=== PATIENT | female | born 1960 | race Caucasian/White ===

== ENCOUNTER 2017-11-20 15:59 | Inpatient (IN) | payer MEDICAID ==
[~2017-11-20] VITALS: Ht 154.9 cm; Wt 74.3 kg
[2017-11-20] MEDS ORDERED: hydrOXYzine (VISTARIL) 25 MG CAP PO PRN (17:00)
[2017-11-20] MEDS ORDERED: ONDANSETRON 4 MG (ZOFRAN) ORAL DISSOLVE TAB PO PRN (17:15)
[2017-11-20] MEDS: OMEGA 3 (FISH OIL) 1000 MG CAP PO SCH (17:29)
[2017-11-20] MEDS: HYDROcodone/APAP 10 MG/325 MG (LORTAB) TAB PO PRN ×2 (17:29→21:31)
[2017-11-20 18:00] VITALS: BP 148/66
[2017-11-20] MEDS: RT-ADVAIR HFA 115/21 MCG PER PUFF IH SCH (18:13)
[2017-11-20] MEDS: RT-ALBUTEROL/IPRATROPIUM 3 ML (DUONEB) VIAL INH SCH (18:13)
[2017-11-20] MEDS: inSUlin ASPART (NovoLOG) 1 UNIT/0.01 ML (CHARGE PER UNIT) SC SCH (18:19)
[2017-11-20] MEDS: LIPASE/AMYLASE/PROTEASE (PANCRELIPASE) 5,000 UNITS CAP PO SCH (18:21)
[2017-11-20] MEDS ORDERED: NICOTINE 21 MG (NICODERM) PATCH TD NR (19:00)
--- NOTE | 2017-11-20 20:18 | HISTORY AND PHYSICAL ---
DATE OF SERVICE: 11/20/2017 CHIEF COMPLAINT: Difficulty with walking. HISTORY OF PRESENT ILLNESS: The patient is a 57-year-old disabled female who was modified independent with a walker prior to [place] a [place]. She sustained a fracture of the left proximal femur. She was admitted to [facility] and had intramedullary nailing on 11/16/2017. The same day, she had a decline in her functional independence due to this and is now referred to inpatient rehabilitation unit. Currently, she requires assistance for ADLs and mobility skills.She is min assist for Traansfers and gait with a WW.She is max assist for lower body dressing and min assist for upper body dressing. PAST MEDICAL HISTORY: Bipolar disorder, disabled since the late for back pain and psych issues, diabetes mellitus, diabetic peripheral neuropathy.She reports that she has a Therapy dog for her anxiety PAST SURGICAL HISTORY: As per above. ALLERGIES: SULFA, DIAZEPAM, HYDROMORPHONE, METFORMIN, PENICILLIN. FAMILY HISTORY: Noncontributory. SOCIAL HISTORY: She presents to unit with her spouse. He is a retired tow truck dispatcher. They have one child who is from an overdose. They live in an apartment in [place], [place].She reports that she took Xanax in the past for panic attacks but [place] Medicaid will no longer cover that medication REVIEW OF SYSTEMS: A 10-point review of systems significant for history of anxiety, depression, peripheral neuropathy, falls, back pain. MEDICATIONS: Lofibra 134 mg p.o. at bedtime, Nicoderm patch, Vasotec 2.5 mg p.o. daily, Prozac 40 mg p.o. daily, Lasix 20 mg p.o. daily, Protonix 20 mg p.o. daily, ASA 81 mg p.o. b.i.d., Sinequan 10 mg p.o. at bedtime, Prozac 20 mg p.o. at bedtime, Lyrica 150 mg p.o. t.i.d., Lamictal 100 mg p.o. b.i.d., Zyprexa 20 mg p.o. at bedtime, Levemir insulin 65 units b.i.d., Advair 2 puffs b.i.d., DuoNeb treatments q.i.d., Zofran 1 mg p.o. q.6 hours p.r.n. nausea or emesis, fish oil 1000 mg p.o. b.i.d., Vistaril 25 mg p.o. t.i.d. p.r.n. anxiety or itching, Pancrease 2 tablets p.o. with meals, NovoLog insulin 20 units subcu with meals, hydrocodone/APAP 1 tablet p.o. q.4 hours p.r.n. moderate pain, 10 mg tabs. PHYSICAL EXAMINATION: GENERAL: Significant for a female appearing her stated age, alert and oriented, requesting that her therapy dog be allowed to come and visit. VITAL SIGNS: She is afebrile, pulse is 81, respirations 18, blood pressure 148/66, O2 sat 96% on 2 liters of O2, 91% on room air. HEENT: Vision, speech, hearing grossly intact. No oral lesion is noted. NECK: Supple without mass. HEART: Regular rate and rhythm. CHEST: Clear. ABDOMEN: Obese, soft, nontender. Bowel sounds present. EXTREMITIES: Trace edema of both ankles, no calf tenderness. MUSCULOSKELETAL: The patient has a good amount of strength in both upper limbs and right lower limb. Left lower limb limited hip due to recent fracture repair with guarding and pain, tenderness.RT Knee flex/extension 4-/5 hip flexion 4-/5 DF 4/5 Left knee flex extension 3/5 Hip Flex NT DF 4/5 NEUROLOGIC: Decreased sensation to touch in both feet. Cognition appears grossly intact. Strength as per above. IMPRESSION: 1. Ambulatory dysfunction secondary to fall with resulting left proximal femur fracture, status post intramedullary nailing, [facility] 11/16/2017. 2. Postop deep venous thrombosis prophylaxis, on aspirin b.i.d. 3. Insulin-dependent diabetes mellitus. 4. Anxiety/depression, on medications. 7. Tobaccoism, currently abstaining on patch. 5. Diabetic peripheral neuropathy. PLAN: The patient will have a comprehensive program of inpatient rehabilitation with goal of maximizing level of functional independence prior to discharge home with spouse. The patient will have PT, OT 90 minutes per day each discipline, 5 days a week for 14 days with the goal of returning home with spouse, modified independent to supervision for ADLs and mobility skills. Please see post-admission physician evaluation, which is separate document for details of plan of care. Speech therapy to do cognitive assessment and treat as indicated. Rehabilitation nursing assist with bowel, bladder, skin, wound care, medication administration, pain management and clinical social work therapist with discharge planning, community reentry. Referred the patient's spouse to nursing service regarding details and protocol for [place].Consult DR veliz to assist with medical management.Monitor accucheks and adjust meds as needed. ESTIMATED LENGTH OF STAY: 14 days. PROGNOSIS: Rehab prognosis appears good for above goals in mind. DIET: Carb consistent. CODE STATUS: Full code. Job ID: [id number] DocumentID: [id number] Dictated Date: 11/20/2017 19:21:47 Front Office Director Date: 11/20/2017 20:17:38 Dictated By: RYNE CARPENTER MD MTDD
[2017-11-20] MEDS ORDERED: CREON PO SCH (21:00)
[2017-11-20] MEDS ORDERED: OLANZapine 2.5 MG (ZyPREXA) TAB PO SCH ×2 (21:00)
[2017-11-20] MEDS: ASPIRIN E.C. 81 MG (ECOTRIN) TAB PO SCH (21:31)
[2017-11-20] MEDS: OLANZapine 5 MG (ZyPREXA) TAB PO SCH (21:31)
[2017-11-20] MEDS: PREGABALIN 75 MG (LYRICA) CAP PO SCH (21:31)
[2017-11-20] MEDS: FLUoxetine HCL 20 MG (PROzac) CAP PO SCH (21:31)
[2017-11-20] MEDS: DOXEPIN 10 MG (SINEquan) CAP PO SCH (21:32)
[2017-11-20] MEDS: inSUlin DETERMIR 1 UNIT/0.01 ML (LEVEMIR) CHARGE PER UNIT SQ SCH (21:32)
[2017-11-21] MEDS: HYDROcodone/APAP 10 MG/325 MG (LORTAB) TAB PO PRN ×4 (05:25→21:32)
[2017-11-21 05:38] VITALS: BP 165/75
[2017-11-21] MEDS: PANTOPRAZOLE 20 MG TABLET (PROTONIX) PO SCH (06:26)
[2017-11-21] MEDS: OMEGA 3 (FISH OIL) 1000 MG CAP PO SCH ×2 (06:26→16:49)
[2017-11-21] MEDS: LIPASE/AMYLASE/PROTEASE (PANCRELIPASE) 5,000 UNITS CAP PO SCH ×3 (06:26→16:49)
[2017-11-21] MEDS: inSUlin ASPART (NovoLOG) 1 UNIT/0.01 ML (CHARGE PER UNIT) SC SCH ×2 (06:27→11:31)
[2017-11-21] MEDS: RT-ALBUTEROL/IPRATROPIUM 3 ML (DUONEB) VIAL INH SCH ×4 (06:48→19:10)
[2017-11-21] MEDS: RT-ADVAIR HFA 115/21 MCG PER PUFF IH SCH ×2 (06:50→19:10)
--- NOTE | 2017-11-21 08:05 | PM&R Post Admission Assessment ---
Post Admission Physician Asses Date seen by provider: Nov 21, 2017 Time seen by provider: 07:45 Admisison Dx: (1) Fracture dislocation of left hip joint The preadmission screen agrees with the post admission assessment that the patient is a good candidate for inpatient rehabilitation. The patient will have a comprehensive program of inpatient rehabilitation with a goal of maximizing level of functional independence prior to discharge home with spouse and HHC. The patient will have PT/OT ninety minutes per day, each discipline, five days a week for 14 days for gait, strengthening, conditioning, balance, ADLs, any patient/family/caregiver training as necessary. Speech therapy to do cognitive assessment and treat as indicated. Rehabilitation nursing to assist with bowel, bladder, skin, wound care, medication administration, pain management. Validation Specialist to assist with discharge planning, community reentry. SCD's and ASA BID for DVT prophylaxis. She appears to be well motivated to participate in three hours of therapy a day. She should be able to tolerate three hours of therapy a day from a medical standpoint. She should benefit from the three hours of therapy a day. She has a reasonable discharge plan, reasonable discharge rehabilitation goals and a supportive family. She has various comorbidities that need to be closely monitored with medications and treatments adjusted on a daily basis as needed. These include: Bipolar Disorder DM Diabetic peripheral neuropathy Barriers to discharge for this patient who had been independent prior to this are for her to be modified independent to supervision for ADLs and mobility skills prior to discharge home with spouse and HHC, so as to lessen the burden of the caregivers. Risks for this patient include: 1. Fall 2. Fracture 3. DVT 4. Pulmonary embolism 5. Wound infection 6. Skin breakdown 7. Contractures 8. Poorly controlled pain 9. Urinary retention 10. UTI 11. Respiratory infection 12. Aspiration 13. poorly controlled DM Estimated Length of Stay: 14 days Prognosis: Rehab prognosis appears good for goal of discharge home with [family ] modified independent to supervision for ADLs and mobility skills. General: Alert, Oriented X3, Cooperative, No Acute Distress, Other (mildly anxious) HEENT: Atraumatic, PERRLA, EOMI, Mucous Memb Moist/[place] Neck: Supple, No JVD Lungs: Clear to Auscultation Heart: Regular Rate Abdomen: Normal Bowel Sounds, Soft, No Tenderness Extremities: Other (Trace edeam left ankle) Neuro: Other (Weakness left hip due to injury and guarding Intermittent tremors Decreased sensation to light touch in feet otherwise generalized weakness Anxiety) RYNE CARPENTER MD Nov 21, 2017 08:05
--- NOTE | 2017-11-21 08:53 | Physical Therapy Evaluation ---
PT Evaluation-General Medical Diagnosis Admission Date Nov 20, 2017 at 16:06 Medical Diagnosis: left femur fracture Onset Date: Nov 16, 2017 Therapy Diagnosis Therapy Diagnosis: generalized weakness/debility Height/Weight Height (Feet): 5 Height (Inches): 1.00 Weight (Pounds): 160 Weight (Ounces): 0.0 Precautions Precautions/Isolations: Fall Prevention, Standard Precautions Weight Bear Status Right Lower Extremity: Right Full Weight Bearing Left Lower Extremity: Left Full Weight Bearing Referral Physician: Joseph Reason for Referral: Evaluation/Treatment Medical History Pertinent Medical History: Arthritis, CAD, DM, HTN, Neuropathy Current History Fall at [facility] resulting in left proximal femur fracture with repair. Transferred from [facility] for continued care. Reviewed History: Yes Social History Home: Apartment Current Living Status: Spouse Entry Into Home: Level Entry Prior/Core FIM Prior Level of Function Functional [place] Measure 0=Not Assessed/NA 4=Minimal Assistance 1=Total Assistance 5=Supervision or Setup 2=Maximal Assistance 6=Modified [place] 3=Moderate Assistance 7=Complete [place] Bed Mobility: 6 Transfers (B,C,W/C) (FIM): 6 Gait: 6 uses FWW PLOF PT Evaluation-Current Subjective Patient agrees to PT. Pain Numeric Pain Scale: 7 Location: Left Location Body Site: Hip Pain Description: Acute Objective Patient Orientation: Normal For Age Problem Solving: Fair Attachments: Oxygen ROM/Strength ROM Lower Extremities bilateral LE WFL Strenght Lower Extremities right knee flexion/extension 4-/5; hip flexion 4-/5; DF/PF 4/5 left knee flexion/extension 3/5; hip flexion NT; DF/PF 4/5 Integumentary/Posture Integumentary refer to nursing notes Bowel Incontinence: No Bladder Incontinence: No Posture WFL Neuromuscular (Tone, Coordination, Reflexes) noted bilateral UE tremors Sensory Vision: Functional Hearing: Functional Sensation Right Lower Extremit: Impaired Sensation Left Lower Extremity: Impaired Transfers Functional [place] Measure 0=Not Assessed/NA 4=Minimal Assistance 1=Total Assistance 5=Supervision or Setup 2=Maximal Assistance 6=Modified [place] 3=Moderate Assistance 7=Complete IndependenceIRFPAI Quality Coding Scale 6 Independent with activity with or without an assistive device 5 Patient requires set up or clean up by helper. Patient completes activity by themselves 4 Supervision or touching assist (CGA). [place] provide cues , steadying assist 3 The helper provides less than half the effort to complete the activity 2 The helper provides more than half the effort to complete the activity 1 Dependent. The helper does all the effort to complete an activity 7 Patient refused to complete or attempt activity 9 The patient did not perform the activity before the current illness or injury 88 Not attempted due to Medical conditions or safety concerns Transfers (B, C, W/C) (FIM): 4 Scootin Rollin Roll Left to Right (QC): 5 Supine to/from Sit: 5 Sit to/from Stand: 4 Sit to Lying (QC): 4 Lying to Sitting/Side of Bed(Q: 5 Sit to Stand (QC): 4 Chair/Nzf-ph-Pscej Xfer(QC): 4 Car Transfer (QC): 5 CGA for safety Gait Does the Patient Walk?: Yes Mode of Locomotion: Walk Anticipated Mode of Locomotion: Walk Gait (FIM): 4 Distance (FIM): 3=150 ft Walk 10 feet (QC): 4 Walk 50 ft with 2 Turns(QC): 4 Walk 150 ft (QC): 4 Walking 10ft/uneven surface-QC: 4 Distance: 150' x 5 Gait Level of Assist: 4 Gait Persons Needed: 1 Gait Assistive Device: FWW Comments/Gait Description very slow and antalgic Wheelchair Training Does the Pt Use a Wheelchair?: No Stairs Stairs (FIM): 2 #of Steps: 2 Level of Assist: 4 1 Step (curb) (QC): 4 4 Steps (QC): 9 Assistive Device: Walker 12 Steps (QC): 9 Balance Sitting Static: Normal Sitting Dynamic: Normal Standing Static: Fair Standing Dynamic: Fair Treatment bilateral LE exercises in sit 15 reps x 3 sets LAQ, AP, hip flexion AAROM left LE Assessment/Needs 57 y.o. female, will benefit from skilled PT to address functional strength and mobility to improve current LOF and to safely return to home with spouse at maximum LOF. Rehab Potential: Fair Post Rehab Potential-Barriers: compliance PT Event Services Manager Goals Snf Goals PT Event Services Manager Goals Time Frame: Dec 01, 2017 Transfers (B,C,W/C) (FIM): 6 Sit to Lying (QC): 6 Lying-Sitting on Side/Bed(QC): 6 Sit to Stand (QC): 6 Rollin Roll Left to Right (QC): 6 Chair/Fby-of-Ugqsi Xfer(QC): 6 Car Transfer (QC): 6 Does the Patient Walk: Yes Gait (FIM): 6 Gait distance (FIM): 3=150 ft Distance: 200' Walk 10 feet (QC): 6 Walk 10ft-Uneven Surface(QC): 6 Walk 50ft with 2 Turns (QC): 6 Walk 150 ft (QC): 6 Gait Level of Assist: 6 Gait Assistive Device: FWW Stairs (FIM): 2 # of Steps: 4 1 Step (curb) (QC): 5 4 Steps (QC): 5 12 Steps (QC): 9 Stairs Level Of Assist: 5 Picking up an Object (QC): 5 PT Plan Problem List Problem List: Activity Tolerance, Functional Strength, Safety, Balance, Gait, Bed Mobility Treatment/Plan Treatment Plan: Continue Plan of Care Treatment Plan: Bed Mobility, Education, Functional Activity Deborah, Functional Strength, Group Therapy, Gait, Safety, Therapeutic Exercise, Transfers Treatment Duration: Dec 01, 2017 Frequency: At least 5 of 7 days/Wk (IRF) Estimated Hrs Per Day: 1.5 hours per day Patient and/or Family Agrees t: Yes Discharge Recommendations Therapy D/C Recommendations: Home w/ Family Support Time/GCodes Time In: 745 Time Out: 850 Total Billed Treatment Time: 65 Total Billed Treatment 1 visit EVHighC 35 min EX 15 min FA 15 min G Codes Necessary: ROSHAN Dang PT Nov 21, 2017 08:53
[2017-11-21] MEDS: PREGABALIN 75 MG (LYRICA) CAP PO SCH ×3 (08:57→20:58)
[2017-11-21] MEDS: FUROSEMIDE 20 MG (LASIX) TAB PO SCH (08:57)
[2017-11-21] MEDS: ASPIRIN E.C. 81 MG (ECOTRIN) TAB PO SCH ×2 (08:57→20:58)
[2017-11-21] MEDS: ENALAPRIL 2.5 MG (VASOTEC) TAB PO SCH (08:57)
[2017-11-21] MEDS: FLUoxetine HCL 20 MG (PROzac) CAP PO SCH ×2 (08:57→20:59)
[2017-11-21] MEDS ORDERED: FENOFIBRATE 160 MG PO SCH (09:00)
[2017-11-21] MEDS ORDERED: INSULIN DEGLUDEC SQ SCH (09:00)
[2017-11-21] MEDS ORDERED: PRILOSEC 20 MG PO SCH (09:00)
[2017-11-21] MEDS ORDERED: inSUlin DETERMIR 1 UNIT/0.01 ML (LEVEMIR) CHARGE PER UNIT SQ SCH (09:00)
[2017-11-21] MEDS: inSUlin DETERMIR 1 UNIT/0.01 ML (LEVEMIR) CHARGE PER UNIT SQ SCH ×2 (09:05→21:05)
[2017-11-21 09:38] LABS: MEAN PLATELET VOLUME 9.3 FL (7.4-10.4); RED BLOOD COUNT 3.48 10^6/uL (4.35-5.85); RED CELL DISTRIBUTION WIDTH 15.2 % (10.0-14.5); WHITE BLOOD COUNT 9.6 10^3/uL (4.3-11.0)
[2017-11-21 10:12] LABS: ALANINE AMINOTRANSFERASE 26 U/L (0-55); ALBUMIN 3.5 GM/DL (3.2-4.5); ALKALINE PHOSPHATASE 88 U/L (40-136); BILIRUBIN,TOTAL 0.4 MG/DL (0.1-1.0); BUN/CREATININE RATIO 11; CALCIUM 9.5 MG/DL (8.5-10.1); CARBON DIOXIDE 28 MMOL/L (21-32); CHLORIDE 98 MMOL/L (98-107); CREATININE SERUM 0.71 MG/DL (0.60-1.30); GFR ESTIMATED > 60; GLUCOSE 248 MG/DL (70-105); POTASSIUM 3.6 MMOL/L (3.6-5.0); SODIUM 134 MMOL/L (135-145)
[2017-11-21] MEDS: ALPRAZolam 0.25 MG (XANAX) TAB PO PRN (11:29)
--- NOTE | 2017-11-21 14:09 | ST Cognitive Linguistic Eval ---
Speech Evaluation-General Medical Diagnosis left femur fracture Onset Date: Nov 16, 2017 Therapy Diagnosis Therapy Diagnosis: cognition at prior level Precautions Precautions/Isolations: Fall Prevention, Standard Precautions Medical History Pertinent Medical History: Arthritis, CAD, DM, HTN, Neuropathy Reviewed History: Yes Social History Current Living Status: Spouse Speech PLF-Current Status Prior Level of Function The pt indicates she lives at home with . She currently drives, but takes care of her medication, and they pay for bills with [employer]. She states she has always had difficulty remembering things. Subjective Pt reports her pain makes it hard to concentrate. Language Eval: Auditory Comprehends Simple Yes/No Ques: Functional Indent/Objects Multiple Ward: Functional Ident/Pics in Multiple Ward: Functional Follows 1-Step Commands: Mild Follows Complex Directions: Mild Follows General Conversations: Functional Language Eval: Verbal Language Completes Spontaneous Greeting: Functional Produces Auto, Serial Info: Functional Imitates Simple Words/Phrases: Functional Word Finding: Functional Requests Basic Needs: Functional States Basic Personal Info: Functional Expresses Complex Ideas: Functional Language Evaluation: Reading Comprehends Single Nouns: Functional Follows Simple Written Direct: Functional Comprehends Multiple Sentences: Functional Language Evaluation: Writing Copies/Traces: Functional Writes to Simple Dictation: Functional Writes Personal Information: Functional Objective Cognitive Domain Attention: Mild Memory: Mild Communication/Social Cognition Comprehension: 6 Expression: 6 Social Interaction: 6 Problem Solvin Memory: 5 Speech Patient Assess Expression of Ideas/Wants: Expression (4) (Expresses complex messages) Understanding Verbal Content: Usually Understands (3) (to understand) Brief Interview-Mental Status: Yes (*Continue to Repetition of) Repetition of Three Words: Three (3) Temporal Orientation: Year: Correct (3) Temporal Orientation: Month: Accurate within 5 days(2) Temporal Orientation: Day: Incorrect or No Answer(0) Recall : Wear to say "Sock": Yes,after cueing (1) Recall : Color: No, could not recall (0) Recall : Bed: No, could not recall (0) Memory/Recall Ability: Location of own room, That he or she is in a hsp/hsp unit Speech-Plan Treatment Plan Speech Therapy Treatment Plan: Discontinue ST no speech therapy warranted at this time as pt is at PLOF Frequency: Modified Program (IRF) Estimated Hrs Per Day: Other Rehab Potential: Fair Time Speech Therapy Time In: 13:15 Speech Therapy Time Out: 13:30 Billed Treatment Time 1, SPSNDCOMP 15 min BOO MARTINS Nov 21, 2017 14:09
--- NOTE | 2017-11-21 14:43 | Occupational Therapy Eval ---
OT Evaluation-General/PLF Medical Diagnosis Admission Date Nov 20, 2017 at 16:06 Medical Diagnosis: left femur fracture/nailing Onset Date: Nov 16, 2017 Therapy Diagnosis Therapy Diagnosis: Weakness Height/Weight Height (Feet): 5 Height (Inches): 1.00 Weight (Pounds): 160 Weight (Ounces): 0.0 Precautions Precautions/Isolations: Fall Prevention, Standard Precautions Safety Interventions: None Weight Bear Status Weight Bearing Restriction: Weight Bearing/Tolerated Referral Physician: Joseph Referral Reason: Activity Tolerance, Self Care, Evaluation/Treatment, Strengthening/ROM Medical History Pertinent Medical History: Arthritis, CAD, DM, HTN, Neuropathy Additional Medical History Peripheral neuropathy, DVT Current History Pt. fell coming out of [place]. Fx left hip. Sustained nailing on 11-16-17. Reviewed History: Yes Social History Home: Apartment Current Living Status: Spouse Entry Into Home: Level Entry ADL-Prior Level of Function ADL PLOF Comments Pt. states that she has a worker that helps her 2 x/week, 2 hours each time. Pt. states that they help her bathe/dress if needed, and also help cook/clean. DME/Equipment: Bath Chair, Shower Hose Wool Shearing Supervisor, Tub/Shower DME/Equipment Comments Pt. has a four wheeled walker. Drive Self: No OT Current Status Subjective Pt. reports 10/10 pain in left hip. Pt. receives pain medication from nurse. Pt. then states that she is getting a panic attack. Nursing checks to see if pt. can have a xanax. Appearance Pt. in chair. Declines showering but agrees to spongebathe with OT assistance. Mental Status/Objective Patient Orientation: Person, Place Current Upper Extremity ROM WFL ADL-Treatment Functional [place] Measure 0=Not Assessed/NA 4=Minimal Assistance 1=Total Assistance 5=Supervision or Setup 2=Maximal Assistance 6=Modified [place] 3=Moderate Assistance 7=Complete IndependenceIRFPAI Quality Coding Scale 6 Independent with activity with or without an assistive device 5 Patient requires set up or clean up by helper. Patient completes activity by themselves 4 Supervision or touching assist (CGA). [place] provide cues , steadying assist 3 The helper provides less than half the effort to complete the activity 2 The helper provides more than half the effort to complete the activity 1 Dependent. The helper does all the effort to complete an activity 7 Patient refused to complete or attempt activity 9 The patient did not perform the activity before the current illness or injury 88 Not attempted due to Medical conditions or safety concerns Grooming (FIM): 5 (Set up to brush hair.) Oral Hygiene (QC): 9 Bathing (FIM): 3 (CGA in stance and max assist to bathe feet.) Shower/Bathe Self (QC): 3 Upper Body Dressing (FIM): 5 Upper Body Dressing (QC): 4 Lower Body Dressing (FIM): 2 (max assist to don socks and max assist to thread bilateral feet into underwear and shorts.) Lower Body Dressing (QC): 2 On/Off Footwear (QC): 2 Transfers (B, C, W/C) (FIM): 4 (Min assist in stance without walker for balance and safety.) Other Treatments Pt. agreed to spongebathe. Pt. required increased time to complete tasks. Pt. reports that she is having pain, but nursing has given her pain medication, and unable to give more. Pt. requires multiple rest breaks. Is able to stand without walker to wash self, but is unsteady on feet. All needs met in room. Education OT Patient Education: Correct positioning, Modified ADL techniques, Progress toward Goal/Update tx plan, Purpose of tx/functional activities, Reviewed precautions, Rehab process, Transfer techniques Teaching Recipient: Patient Teaching Methods: Demonstration, Discussion Response to Teaching: Verbalize Understanding, Return Demonstration OT Short Term Goals Short Term Goals Time Frame: Nov 28, 2017 Eating(FIM): 5 Grooming(FIM): 5 Bathing(FIM): 4 Upper Body Dressing(FIM): 5 Lower Body Dressing(FIM): 4 Toileting(FIM): 4 Transfers (B,C,W/C) (FIM): 5 Toilet/Commode Transfer(FIM): 5 Shower Transfer(FIM): 4 Additional Short Term Goals: 1-Demonstrate ADL Tasks, 2-Verbalize Understanding , 3-ImproveStrength/Deborah 1=Demonstrate adherence to instructed precautions during ADL tasks. 2=Patient will verbalize/demonstrate understanding of assistive devices/ modifications for ADL. 3=Patient will improve strength/tolerance for activity to enable patient to perform ADL's. OT Telemarketer Goals Telemarketer Goals Time Frame: Dec 12, 2017 Eating (FIM): 6 Eating (QC): 6 Groomin Oral Hygiene (QC): 6 Bathing(FIM): 5 Shower/Bathe Self (QC): 5 Upper Body Dressing(FIM): 5 Upper Body Dressing (QC): 5 Lower Body Dressing(FIM): 5 Lower Body Dressing (QC): 5 On/Off Footwear (QC): 5 Toileting(FIM): 6 Toileting Hygiene (QC): 6 Transfers (B,C,W/C) (FIM): 6 Toilet/Commode Transfer(FIM): 6 Toilet/Commode Transfer (QC): 6 Shower Transfer(FIM): 5 Additional Goals: 1-Demonstrate ADL Tasks, 2-Verbalize Understanding, 3- ImproveStrength/Deborah 1=Demonstrate adherence to instructed precautions during ADL tasks. 2=Patient will verbalize/demonstrate understanding of assistive devices/ modifications for ADL. 3=Patient will improve strength/tolerance for activity to enable patient to perform ADL's. OT Education/Plan Problem List/Assessment Assessment: Decreased Activ Tolerance, Dependent Transfers, Impaired Bed Mobility, Impaired Funct Balance, Impaired I ADL's, Impaired Self-Care Skills Discharge Recommendations Plan/Recommendations: Continue POC Therapy D/C Recommendations: Home w/ Family Support, Occupational Therapy Home Care Equpiment Recommendations-D/C: Hip Kit Treatment Plan/Plan of Care Treatment,Training & Education: Yes Patient would benefit from OT for education, treatment and training to promote independence in ADL's, mobility, safety and/or upper extremity function for ADL' s. Plan of Care: ADL Retraining, Functional Mobility, UE Funct Exercise/Act Treatment Duration: Dec 12, 2017 Frequency: At least 5 of 7 days/Wk (IRF) Estimated Hrs Per Day: 1.5 hours per day Agreement: Yes Rehab Potential: Fair Time/GCodes Start Time: 09:45 Stop Time: 11:15 Total Time Billed (hr/min): 90 Billed Treatment Time 1, EVH x 15minutes, ADL x 75minutes JOSE GUADALUPE BONILLA OT Nov 21, 2017 14:43
--- NOTE | 2017-11-21 14:46 | PM & R (SOAP) Progress Note ---
Subjective This was a face to face visit with the patient. Date Seen by Provider: Nov 21, 2017 Time Seen by Provider: 07:45 Subjective/Events-last exam Patient was seen in her room this AM Tremulous at times Informs OT that she needs Xanax PRN for panic attacks-see orders Patient Min assist for transfers and gait Appreciate PT and ST note Review of Systems Neurological: Weakness, Other (trmors) Objective Physician Exam Last Set of Vital Signs Vital Signs Date Time Temp Pulse Resp B/P (MAP) Pulse Ox O2 Delivery O2 Flow Rate FiO2 11/21/17 14:15 95 Nasal Cannula 3.00 11/21/17 05:38 98.4 73 19 165/75 (105) Capillary Refill : I&O Intake and Output 11/21/17 00:00 Daily Weight Change No General: Alert, Oriented X3, Cooperative, No Acute Distress, Other (mildly anxious) HEENT: Atraumatic, PERRLA, EOMI, Mucous Memb Moist/[place] Neck: Supple, No JVD Lungs: Clear to Auscultation Heart: Regular Rate Abdomen: Normal Bowel Sounds, Soft, No Tenderness Extremities: Other (Trace edeam left ankle) Neuro: Other (Weakness left hip due to injury and guarding Intermittent tremors Decreased sensation to light touch in feet otherwise generalized weakness Anxiety) Results Lab Data Laboratory Tests 11/20/17 18:11: Glucometer 217H 11/20/17 19:11: Glucometer 248H 11/20/17 20:33: Glucometer 312H 11/21/17 05:25: Glucometer 129H 11/21/17 09:33: White Blood Count 9.6, Red Blood Count 3.48L, Hemoglobin 10.0L, Hematocrit 30L, Mean Corpuscular Volume 86, Mean Corpuscular Hemoglobin 29, Mean Corpuscular Hemoglobin Concent 34, Red Cell Distribution Width 15.2H, Platelet Count 327, Mean Platelet Volume 9.3, Sodium Level 134L, Potassium Level 3.6, Chloride Level 98, Carbon Dioxide Level 28, Anion Gap 8, Blood Urea Nitrogen 8, Creatinine 0.71, Estimat Glomerular Filtration Rate > 60, BUN/Creatinine Ratio 11, Glucose Level 248H, Calcium Level 9.5, Total Bilirubin 0.4, Aspartate Amino Transf (AST/SGOT) 24, Alanine Aminotransferase (ALT/SGPT) 26, Alkaline Phosphatase 88, Total Protein 6.0L, Albumin 3.5 11/21/17 10:56: Glucometer 245H 11/21/17 13:50: Glucometer 275H Assessment/Plan Assessment and Plan Fall with left proximal femur fracture s/p IM nail ortho 11-16- OSH Postop DVT Prophylaxis on ASA BID IDDM Anxiety/deprssion on meds Tobaccoism abstaining on patch-will decrease dose Diabetic Peripheral neuropathy Plan Continue PT/OT Xanax prn at low dose and frequency discussed with RN-also has Vistaril PRN DR Roche to see Team Conference tomorrow See orders (1) Fracture dislocation of left hip joint Co-Morbidities that are continuing to impact the rehab process: (include details ) RYNE CARPENTER MD Nov 21, 2017 14:46
--- NOTE | 2017-11-21 15:02 | Physical Therapy Daily Note ---
PT Daily Note-Current Subjective Patient agrees to PT. C/o 8/10 left hip pain. Pain Numeric Pain Scale: 8 Location: Left Location Body Site: Hip Pain Description: Acute Comment: RN aware Mental Status Patient Orientation: Normal For Age Attachments: Oxygen Transfers Functional [place] Measure 0=Not Assessed/NA 4=Minimal Assistance 1=Total Assistance 5=Supervision or Setup 2=Maximal Assistance 6=Modified [place] 3=Moderate Assistance 7=Complete IndependenceIRFPAI Quality Coding Scale 6 Independent with activity with or without an assistive device 5 Patient requires set up or clean up by helper. Patient completes activity by themselves 4 Supervision or touching assist (CGA). [place] provide cues , steadying assist 3 The helper provides less than half the effort to complete the activity 2 The helper provides more than half the effort to complete the activity 1 Dependent. The helper does all the effort to complete an activity 7 Patient refused to complete or attempt activity 9 The patient did not perform the activity before the current illness or injury 88 Not attempted due to Medical conditions or safety concerns Transfers (B, C, W/C) (FIM): 4 Scootin Sit to/from Stand: 4 Sit to Stand (QC): 4 Car Transfer (QC): 4 CGA for safety Weight Bearing Right Lower Extremity: Right Full Weight Bearing Left Lower Extremity: Left Full Weight Bearing Gait Training Does the Patient Walk?: Yes Gait (FIM): 4 Distance (FIM): 3=150 ft Distance: 150' x 2/75' x 1 Walk 10 feet (QC): 4 Walk 50 ft with 2 Turns(QC): 4 Walk 150 ft (QC): 4 Gait Level of Assist: 4 Gait Persons Needed: 1 Gait Assistive Device: FWW very slow, antalgic, functional gait sequence Exercises Seated Therapy Exercises: Ankle pumps, Long arc quads Seated Reps: 25 (2 sets) NuStep Minutes: 20 NuStep Workload: 3 (to increase strength and improve mobility) Treatments Patient seen x [address] performing evaluation from [id number]. Assessment Patient tolerated treatment well and remains up in recliner. Patient does have elevated blood sugar and had episodes of falling asleep during exercises. PT President And Chief Executive Officer Goals President And Chief Executive Officer Goals PT Long-Term Goals Time Frame: Dec 01, 2017 Transfers (B,C,W/C) (FIM): 6 Sit to Lying (QC): 6 Lying-Sitting on Side/Bed(QC): 6 Sit to Stand (QC): 6 Rollin Roll Left to Right (QC): 6 Chair/Gdd-wv-Gvwky Xfer(QC): 6 Car Transfer (QC): 6 Does the Patient Walk: Yes Gait (FIM): 6 Gait distance (FIM): 3=150 ft Distance: 200' Walk 10 feet (QC): 6 Walk 10ft-Uneven Surface(QC): 6 Walk 50ft with 2 Turns (QC): 6 Walk 150 ft (QC): 6 Gait Level of Assist: 6 Gait Assistive Device: FWW Stairs (FIM): 2 # of Steps: 4 1 Step (curb) (QC): 5 4 Steps (QC): 5 12 Steps (QC): 9 Stairs Level Of Assist: 5 Picking up an Object (QC): 5 PT Plan Treatment/Plan Treatment Plan: Continue Plan of Care Treatment Plan: Bed Mobility, Education, Functional Activity Deborah, Functional Strength, Group Therapy, Gait, Safety, Therapeutic Exercise, Transfers Treatment Duration: Dec 01, 2017 Frequency: At least 5 of 7 days/Wk (IRF) Estimated Hrs Per Day: 1.5 hours per day Patient and/or Family Agrees t: Yes Time/GCodes Time In: 1300 Time Out: 1415 Total Billed Treatment Time: 60 Total Billed Treatment 2 visits GT 15 min ([id number]) GT 15 min EX x 2 30 min ROSHAN SINGH PT Nov 21, 2017 15:01
[2017-11-21] MEDS ORDERED: OLAN20TA16 PO (15:31)
[2017-11-21] MEDS ORDERED: PRAZ1CAP2 PO (15:31)
[2017-11-21] MEDS ORDERED: ONDA4TAB10 PO (15:31)
[2017-11-21] MEDS ORDERED: DOXE10CA29 PO (15:31)
[2017-11-21] MEDS ORDERED: ENAL2.5T PO (15:31)
[2017-11-21] MEDS ORDERED: PREG150C PO (15:31)
[2017-11-21] MEDS ORDERED: INSU200I4 SC (15:31)
[2017-11-21] MEDS ORDERED: FLUO20CA25 PO (15:31)
[2017-11-21] MEDS ORDERED: IPRA3AMP31 NEB (15:31)
[2017-11-21] MEDS ORDERED: FURO20TA4 PO (15:31)
[2017-11-21] MEDS ORDERED: FLUT1DIS26 INH (15:31)
[2017-11-21] MEDS ORDERED: LIPA1CAP2 PO (15:31)
[2017-11-21] MEDS ORDERED: FENO160T12 PO (15:31)
[2017-11-21] MEDS ORDERED: FLUO40CA PO (15:31)
[2017-11-21] MEDS ORDERED: INSU100I23 SC (15:31)
[2017-11-21] MEDS ORDERED: ALBU2.5V4 NEB (15:31)
[2017-11-21] MEDS ORDERED: OMEP20CA12 PO (15:31)
[2017-11-21] MEDS ORDERED: HYDR-700 PO (15:31)
[2017-11-21] MEDS ORDERED: LAMO100T PO (15:31)
[2017-11-21] MEDS ORDERED: OMG1KC PO (15:31)
[2017-11-21] MEDS ORDERED: NITR0.4T42 SL (15:31)
[2017-11-21] MEDS ORDERED: ASPI-999 PO (15:43)
[2017-11-21 16:13] VITALS: BP 157/68
[2017-11-21] MEDS: HUMALOG KWIKPEN SQ SCH (18:22)
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
[2017-11-21] MEDS: FENOFIBRATE 134 MG (LOFIBRA) CAPSULE PO SCH (20:58)
[2017-11-21] MEDS: OLANZapine 5 MG (ZyPREXA) TAB PO SCH (20:59)
[2017-11-21] MEDS: DOXEPIN 10 MG (SINEquan) CAP PO SCH (20:59)
[2017-11-21] MEDS: PRAZOSIN 1 MG CAPSULE (MINIPRESS) NON-FORMULARY PO SCH (20:59)
[2017-11-22 06:00] VITALS: BP 112/69
[2017-11-22] MEDS: OMEGA 3 (FISH OIL) 1000 MG CAP PO SCH ×2 (06:45→16:28)
[2017-11-22] MEDS: PANTOPRAZOLE 20 MG TABLET (PROTONIX) PO SCH (06:46)
[2017-11-22] MEDS: LIPASE/AMYLASE/PROTEASE (PANCRELIPASE) 5,000 UNITS CAP PO SCH ×3 (06:46→16:28)
[2017-11-22] MEDS: HUMALOG KWIKPEN SQ SCH ×3 (06:50→16:28)
[2017-11-22] MEDS: RT-ALBUTEROL/IPRATROPIUM 3 ML (DUONEB) VIAL INH SCH ×4 (07:11→19:10)
[2017-11-22] MEDS: RT-ADVAIR HFA 115/21 MCG PER PUFF IH SCH ×2 (07:12→19:11)
--- NOTE | 2017-11-22 07:59 | Progress Note (SOAP) ---
Subjective Time Seen by Provider: 07:55 Subjective/Events-last exam patient feeling better today. patient on tresiba. DC Levemir. Femur fracture. Sugars elevated Objective Exam Vital Signs Date Time Temp Pulse Resp B/P (MAP) Pulse Ox O2 Delivery O2 Flow Rate FiO2 11/22/17 07:15 95 Nasal Cannula 3.00 11/22/17 06:00 97.7 78 18 112/69 (83) 96 Nasal Cannula 2.50 11/21/17 21:00 Nasal Cannula 2.50 11/21/17 19:10 96 Nasal Cannula 2.50 11/21/17 16:13 97.6 85 16 157/68 (97) 96 Nasal Cannula 2.00 11/21/17 14:15 95 Nasal Cannula 3.00 11/21/17 10:21 95 Nasal Cannula 3.00 11/21/17 09:00 Nasal Cannula 2.50 I & O 11/22/17 06:59 Intake Total 1055 ml Balance 1055 ml Capillary Refill : Less Than 3 Seconds General Appearance: No Apparent Distress, WD/WN HEENT: Normal ENT Inspection Neck: Full Range of Motion, Normal Inspection Respiratory: No Accessory Muscle Use, No Respiratory Distress, Decreased Breath Sounds Cardiovascular: Regular Rate, Rhythm Gastrointestinal: non tender, soft Results Lab Laboratory Tests 11/21/17 09:33 Laboratory Tests 11/21/17 09:33: White Blood Count 9.6, Red Blood Count 3.48L, Hemoglobin 10.0L, Hematocrit 30L, Mean Corpuscular Volume 86, Mean Corpuscular Hemoglobin 29, Mean Corpuscular Hemoglobin Concent 34, Red Cell Distribution Width 15.2H, Platelet Count 327, Mean Platelet Volume 9.3, Sodium Level 134L, Potassium Level 3.6, Chloride Level 98, Carbon Dioxide Level 28, Anion Gap 8, Blood Urea Nitrogen 8, Creatinine 0.71, Estimat Glomerular Filtration Rate > 60, BUN/Creatinine Ratio 11, Glucose Level 248H, Calcium Level 9.5, Total Bilirubin 0.4, Aspartate Amino Transf (AST/SGOT) 24, Alanine Aminotransferase (ALT/SGPT) 26, Alkaline Phosphatase 88, Total Protein 6.0L, Albumin 3.5 11/21/17 10:56: Glucometer 245H 11/21/17 13:50: Glucometer 275H 11/21/17 16:11: Glucometer 238H 11/21/17 20:56: Glucometer 256H 11/22/17 05:54: Glucometer 192H Assessment/Plan Assessment/Plan Assess & Plan/Chief Complaint Left femur fracture. FALL Diabetes. COPD.. . 11/22/17. Left femur fracture. Fall. COPD. Diabetes Clinical Quality Measures DVT/VTE Risk/Contraindication: Risk Factor Score Per Nursin RFS Level Per Nursing on Admit: 4+=Very High BLAIRE DIXON DO Nov 22, 2017 07:59
--- NOTE | 2017-11-22 08:11 | PM & R (SOAP) Progress Note ---
Subjective This was a face to face visit with the patient. Date Seen by Provider: Nov 22, 2017 Time Seen by Provider: 07:35 Subjective/Events-last exam Patient was seen in her room this AM Patient slept better Patients spouse sleeping over in room Patient Min assist for transfers Objective Physician Exam Last Set of Vital Signs Vital Signs Date Time Temp Pulse Resp B/P (MAP) Pulse Ox O2 Delivery O2 Flow Rate FiO2 11/22/17 07:15 95 Nasal Cannula 3.00 11/22/17 06:00 97.7 78 18 112/69 (83) Capillary Refill : Less Than 3 Seconds I&O Intake and Output 11/21/17 23:59 Intake Total 1180 ml Balance 1180 ml Intake Oral 1180 ml # Voids 9 # Bowel Movements 1 General: Alert, Oriented X3, Cooperative, No Acute Distress, Other (mildly anxious) HEENT: Atraumatic, PERRLA, EOMI, Mucous Memb Moist/[place] Neck: Supple, No JVD Lungs: Clear to Auscultation Heart: Regular Rate Abdomen: Normal Bowel Sounds, Soft, No Tenderness Extremities: Other (Trace edeam left ankle) Neuro: Other (Weakness left hip due to injury and guarding Intermittent tremors Decreased sensation to light touch in feet otherwise generalized weakness Anxiety) Results Lab Data Laboratory Tests 11/20/17 18:11: Glucometer 217H 11/20/17 19:11: Glucometer 248H 11/20/17 20:33: Glucometer 312H 11/21/17 05:25: Glucometer 129H 11/21/17 09:33: White Blood Count 9.6, Red Blood Count 3.48L, Hemoglobin 10.0L, Hematocrit 30L, Mean Corpuscular Volume 86, Mean Corpuscular Hemoglobin 29, Mean Corpuscular Hemoglobin Concent 34, Red Cell Distribution Width 15.2H, Platelet Count 327, Mean Platelet Volume 9.3, Sodium Level 134L, Potassium Level 3.6, Chloride Level 98, Carbon Dioxide Level 28, Anion Gap 8, Blood Urea Nitrogen 8, Creatinine 0.71, Estimat Glomerular Filtration Rate > 60, BUN/Creatinine Ratio 11, Glucose Level 248H, Calcium Level 9.5, Total Bilirubin 0.4, Aspartate Amino Transf (AST/SGOT) 24, Alanine Aminotransferase (ALT/SGPT) 26, Alkaline Phosphatase 88, Total Protein 6.0L, Albumin 3.5 7/10/18 10:56: Glucometer 245H 11/21/17 13:50: Glucometer 275H 11/21/17 16:11: Glucometer 238H 11/21/17 20:56: Glucometer 256H 11/22/17 05:54: Glucometer 192H Assessment/Plan Assessment and Plan Left prox femur fracture s/p IM nail ortho 11-16-17 OSH Postop DVT Prophylaxis on ASA BID IDDM Anxiety /depression on meds Tobaccoism abstaining Nicoderm patch strength decreased Diabetic peripheral neuropathy Plan Continue PT/OT Team Conference later today See report for full functional update and POC and ELOS Consult [facility] re anxiety See orders (1) Fracture dislocation of left hip joint Co-Morbidities that are continuing to impact the rehab process: (include details ) RYNE CARPENTER MD Nov 22, 2017 08:11
[2017-11-22] MEDS: HYDROcodone/APAP 10 MG/325 MG (LORTAB) TAB PO PRN ×4 (08:30→23:21)
[2017-11-22] MEDS: ENALAPRIL 2.5 MG (VASOTEC) TAB PO SCH (08:30)
[2017-11-22] MEDS: FLUoxetine HCL 20 MG (PROzac) CAP PO SCH ×2 (08:30→19:53)
[2017-11-22] MEDS: PREGABALIN 75 MG (LYRICA) CAP PO SCH ×3 (08:30→19:52)
[2017-11-22] MEDS: ASPIRIN E.C. 81 MG (ECOTRIN) TAB PO SCH ×2 (08:30→19:53)
[2017-11-22] MEDS: FUROSEMIDE 20 MG (LASIX) TAB PO SCH (08:30)
[2017-11-22] MEDS: INSULIN DEGLUDEC SQ SCH (08:31)
[2017-11-22] MEDS: NICOTINE 14 MG (NICODERM) PATCH TD SCH (08:32)
--- NOTE | 2017-11-22 09:08 | Physical Therapy Daily Note ---
PT Daily Note-Current Subjective Pt laying Supine upon arrival. Pt agrees to PT but reports pain in Low bk & LLE. Pain Numeric Pain Scale: 9 Location: Left Location Body Site: Knee Pain Description: Ache Mental Status Patient Orientation: Person, Confused, Place Transfers Functional [place] Measure 0=Not Assessed/NA 4=Minimal Assistance 1=Total Assistance 5=Supervision or Setup 2=Maximal Assistance 6=Modified [place] 3=Moderate Assistance 7=Complete IndependenceIRFPAI Quality Coding Scale 6 Independent with activity with or without an assistive device 5 Patient requires set up or clean up by helper. Patient completes activity by themselves 4 Supervision or touching assist ([facility]). [place] provide cues , steadying assist 3 The helper provides less than half the effort to complete the activity 2 The helper provides more than half the effort to complete the activity 1 Dependent. The helper does all the effort to complete an activity 7 Patient refused to complete or attempt activity 9 The patient did not perform the activity before the current illness or injury 88 Not attempted due to Medical conditions or safety concerns Scootin Rollin Roll Left to Right (QC): 4 Supine to/from Sit: 4 Sit to/from Stand: 4 Sit to Lying (QC): 4 Sit to Stand (QC): 4 Weight Bearing Right Lower Extremity: Right Full Weight Bearing Left Lower Extremity: Left Full Weight Bearing Gait Training Does the Patient Walk?: Yes Distance (FIM): 3=150 ft Distance: 150' Walk 10 feet (QC): 4 Walk 50 ft with 2 Turns(QC): 4 Walk 150 ft (QC): 4 Gait Level of Assist: 4 Gait Persons Needed: 1 Gait Assistive Device: FWW Pt walks with antalgic gait pattern & has trouble clearing L foot during ambulation. Pt fatigues easily. Exercises Seated Therapy Exercises: Ankle pumps, Long arc quads, Hip flexion, Kicking activity Seated Reps: 10 NuStep Minutes: 10 NuStep Workload: 3 Treatments Pt transfers from recliner to standing using FWW at [facility]. Pt uses restroom before leaving room. Pt ambulates in hallway using FWW at [facility]. Pt uses NuStep for 10m at [facility] 3 followed by Seated Ex . Pt takes short rest before ambulating back to room to rest in recliner at end of tx. 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 Pt has all needs met, including call light in hand. Assessment Current Status: Fair Progress Pt fatigues easily and needs frequent rest breaks. PT Short Term Goals Short Term Goals Transfers (B,C,W/C) (FIM): 5 PT Plating Tank Operator Apprentice Goals Custodial Goals PT Custodial Goals Time Frame: Dec 01, 2017 Transfers (B,C,W/C) (FIM): 6 Sit to Lying (QC): 6 Lying-Sitting on Side/Bed(QC): 6 Sit to Stand (QC): 6 Rollin Roll Left to Right (QC): 6 Chair/Exq-lz-Cqbxb Xfer(QC): 6 Car Transfer (QC): 6 Does the Patient Walk: Yes Gait (FIM): 6 Gait distance (FIM): 3=150 ft Distance: 200' Walk 10 feet (QC): 6 Walk 10ft-Uneven Surface(QC): 6 Walk 50ft with 2 Turns (QC): 6 Walk 150 ft (QC): 6 Gait Level of Assist: 6 Gait Assistive Device: FWW Stairs (FIM): 2 # of Steps: 4 1 Step (curb) (QC): 5 4 Steps (QC): 5 12 Steps (QC): 9 Stairs Level Of Assist: 5 Picking up an Object (QC): 5 PT Plan Problem List Problem List: Activity Tolerance, Functional Strength, Safety, Balance, Gait, Transfer Treatment/Plan Treatment Plan: Continue Plan of Care Treatment Plan: Bed Mobility, Education, Functional Activity Deborah, Functional Strength, Group Therapy, Gait, Safety, Therapeutic Exercise, Transfers Treatment Duration: Dec 01, 2017 Frequency: At least 5 of 7 days/Wk (IRF) Estimated Hrs Per Day: 1.5 hours per day Patient and/or Family Agrees t: Yes Safety Risks/Education Patient Education: Gait Training, Transfer Techniques, Correct Positioning, Safety Issues Teaching Recipient: Patient, Significant Other Teaching Methods: Discussion Response to Teaching: Verbalize Understanding Time/GCodes Time In: 800 Time Out: 900 Total Billed Treatment Time: 60 Total Billed Treatment 1, GT (15m), FA x2 (25m) & EX (20m) G Codes Necessary: LOULOU Pa PLATING TANK OPERATOR APPRENTICE Nov 22, 2017 09:08
[2017-11-22] MEDS: inSUlin DETERMIR 1 UNIT/0.01 ML (LEVEMIR) CHARGE PER UNIT SQ SCH (09:17)
[2017-11-22] MEDS: NICOTINE PATCH REMOVAL TP SCH (09:17)
--- NOTE | 2017-11-22 14:04 | Occupational Ther Daily Note ---
OT Current Status-Daily Note Subjective Pt. does not report pain to this therapist. Appearance Pt. is up in chair. Agrees to work with OT. Mental Status/Objective Patient Orientation: Person, Place Functional [place] Measure 0=Not Assessed/NA 4=Minimal Assistance 1=Total Assistance 5=Supervision or Setup 2=Maximal Assistance 6=Modified [place] 3=Moderate Assistance 7=Complete [place] Attachments: Oxygen ADL-Treatment Functional [place] Measure 0=Not Assessed/NA 4=Minimal Assistance 1=Total Assistance 5=Supervision or Setup 2=Maximal Assistance 6=Modified [place] 3=Moderate Assistance 7=Complete IndependenceIRFPAI Quality Coding Scale 6 Independent with activity with or without an assistive device 5 Patient requires set up or clean up by helper. Patient completes activity by themselves 4 Supervision or touching assist (CGA). [place] provide cues , steadying assist 3 The helper provides less than half the effort to complete the activity 2 The helper provides more than half the effort to complete the activity 1 Dependent. The helper does all the effort to complete an activity 7 Patient refused to complete or attempt activity 9 The patient did not perform the activity before the current illness or injury 88 Not attempted due to Medical conditions or safety concerns Grooming (FIM): 4 (Min assist to brush hair.) Oral Hygiene (QC): 4 Bathing (FIM): 5 (SBA to wash all parts.) Shower/Bathe Self (QC): 4 Upper Body (FIM): 5 Upper Body Dressing (QC): 4 Lower Body Dressing (FIM): 3 (Pt. utilized AE to don LE clothing.) Lower Body Dressing (QC): 3 On/Off Footwear (QC): 3 Transfers (B, C, W/C) (FIM): 4 (CGA to ambulate with walker to bathroom and to shower.) Shower Transfer(FIM): 4 Other Treatment Pt. completed all ADLs in bathroom area. Requires rest breaks and increased time overall. Pt. utilized AE to doff/don socks, underwear, and pants. All needs met back in chair. After ADLs, pt. completed bilateral UE exercises in chair using red theraband and hand sponge to increase overall strength. Tolerated treatment well with frequent rest breaks. Education OT Patient Education: Correct positioning, Exercise program, Modified ADL techniques, Progress toward Goal/Update tx plan, Purpose of tx/functional activities, Reviewed precautions, Rehab process, Transfer techniques Teaching Recipient: Patient, Significant Other Teaching Methods: Demonstration, Discussion Response to Teaching: Verbalize Understanding, Return Demonstration OT Short Term Goals Short Term Goals Time Frame: Nov 28, 2017 Eating(FIM): 5 Grooming(FIM): 5 Bathing(FIM): 4 Upper Body Dressing(FIM): 5 Lower Body Dressing(FIM): 4 Toileting(FIM): 4 Transfers (B,C,W/C) (FIM): 5 Toilet/Commode Transfer(FIM): 5 Shower Transfer(FIM): 4 Additional Short Term Goals: 1-Demonstrate ADL Tasks, 2-Verbalize Understanding , 3-ImproveStrength/Deborah 1=Demonstrate adherence to instructed precautions during ADL tasks. 2=Patient will verbalize/demonstrate understanding of assistive devices/ modifications for ADL. 3=Patient will improve strength/tolerance for activity to enable patient to perform ADL's. OT Group Home Goals Directional Driller Goals Time Frame: Dec 12, 2017 Eating (FIM): 6 Eating (QC): 6 Groomin Oral Hygiene (QC): 6 Bathing(FIM): 5 Shower/Bathe Self (QC): 5 Upper Body Dressing(FIM): 5 Upper Body Dressing (QC): 5 Lower Body Dressing(FIM): 5 Lower Body Dressing (QC): 5 On/Off Footwear (QC): 5 Toileting(FIM): 6 Toileting Hygiene (QC): 6 Transfers (B,C,W/C) (FIM): 6 Toilet/Commode Transfer(FIM): 6 Toilet/Commode Transfer (QC): 6 Shower Transfer(FIM): 5 Additional Goals: 1-Demonstrate ADL Tasks, 2-Verbalize Understanding, 3- ImproveStrength/Deborah 1=Demonstrate adherence to instructed precautions during ADL tasks. 2=Patient will verbalize/demonstrate understanding of assistive devices/ modifications for ADL. 3=Patient will improve strength/tolerance for activity to enable patient to perform ADL's. OT Education/Plan Problem List/Assessment Assessment: Decreased Activ Tolerance, Decreased UE Strength, Impaired I ADL's , Impaired Self-Care Skills Discharge Recommendations Plan/Recommendations: Continue POC Therapy D/C Recommendations: Home w/ Family Support, Occupational Therapy Home Care Equpiment Recommendations-D/C: Hip Kit Treatment Plan/Plan of Care Treatment,Training & Education: Yes Patient would benefit from OT for education, treatment and training to promote independence in ADL's, mobility, safety and/or upper extremity function for ADL' s. Plan of Care: ADL Retraining, Functional Mobility, UE Funct Exercise/Act Treatment Duration: Dec 12, 2017 Frequency: At least 5 of 7 days/Wk (IRF) Estimated Hrs Per Day: 1.5 hours per day Agreement: Yes Rehab Potential: Fair Time/GCodes Start Time: 10:05 Stop Time: 11:35 Total Time Billed (hr/min): 90 Billed Treatment Time 1, ADL x 75minutes, Ex x 15minutes JOSE GUADALUPE BONILLA OT Nov 22, 2017 14:04
--- NOTE | 2017-11-22 14:31 | Individualized Plan of Care ---
Individualized Plan of Care Rehab Nursing IPOC Order Admission Date Nov 20, 2017 at 16:06 Current Orders Orders Admission Order(Inpt,Obs,Sdc) (11/20/17 16:24) Code/Resuscitation (11/20/17 16:24) Initiate Admission Nursing Pro .admission (11/20/17 16:24) Isolation Central Supply Req (11/20/17 16:24) Hydrocodone/Apap 10/325 Tablet (Lortab 1 (11/20/17 16:45) Aspirin Enteric Coated Tablet (Ecotrin T (11/20/17 21:00) (Nf) Creon 60-12-38 (11/20/17 21:00) Doxepin Capsule (Sinequan Capsule) (11/20/17 21:00) Enalapril Tablet (Vasotec Tablet) (11/21/17 09:00) (Nf) Fenofibrate (11/21/17 09:00) Richardson 3 Capsule (Fish Oil Capsule) (11/20/17 17:00) Fluoxetine Capsule (Prozac Capsule) (11/21/17 09:00) Fluoxetine Capsule (Prozac Capsule) (11/20/17 21:00) Fluticasone/Salmeterol Common (Advair 11 (11/20/17 20:00) Mdi Treatment (11/20/17 16:52) Furosemide Tablet (Lasix Tablet) (11/21/17 09:00) Hydroxyzine Oral (Vistaril Capsule) (11/20/17 17:00) Albuterol/Ipra Inhalation Soln (Duoneb I (11/20/17 19:00) Svn Small Volume Nebulizer (11/20/17 16:55) Pregabalin Capsule (Lyrica Capsule) (11/20/17 21:00) Lipase/Amylase/Protease Caps (Pancrelipa (11/20/17 17:00) Fenofibrate,Micronized Capsule (Lofibra (11/21/17 21:00) Insulin Aspart (Novolog) (Novolog (Charg (11/20/17 17:00) Communication For Respiratory (11/20/17 17:12) Olanzapine Tablet (Zyprexa Tablet) (11/20/17 21:00) Ondansetron Oral Dissolve Tab (Zofran (11/20/17 17:15) (Nf) Prilosec (11/21/17 09:00) Lamotrigine Tablet (Lamictal Tablet) (11/20/17 21:00) (Nf) Tresiba (11/21/17 09:00) Accucheck Achs ACHS (11/20/17 17:21) Pantoprazole Tablet (Protonix Tablet) (11/21/17 07:00) Insulin Determir (Per Unit) (Levemir (Pe (11/21/17 09:00) Olanzapine Tablet (Zyprexa Tablet) (11/20/17 21:00) Olanzapine Tablet (Zyprexa Tablet) (11/20/17 21:00) Insulin Determir (Per Unit) (Levemir (Pe (11/20/17 21:00) Edu Tobacco/Smoking Cessation .prn (11/20/17 18:03) Cho 60g/M 1snack (16-2000 Ty) (11/20/17 Dinner) Ambulate TID (11/20/17 18:06) Sequential Compression Device 08,20 (11/20/17 18:06) Dvt/Vte Risk - Notifiy Physici 08 (11/20/17 18:06) Nicotine Patch (Nicoderm Patch) (11/20/17 19:00) Consult Physician (11/20/17 19:22) Request Ot Evaluate & Treat (11/21/17 06:55) Pt Evaluate/Treat Request (11/21/17 06:55) Request Speech/Language Servic (11/21/17 06:55) Cbc No Diff (11/21/17 07:49) Comprehensive Metabolic Panel (11/21/17 07:49) Prazosin (Non-Formulary) (Minipress (Non (11/21/17 21:00) Alprazolam Tablet (Xanax Tablet) (11/21/17 10:45) (Nf) Tresiba (11/22/17 09:00) Patient's Own Med(Rx Use Only) (Patient' (11/21/17 17:00) Patient Visit (11/21/17 ) Pt Eval High Complexity (11/21/17 ) Exercise Therap, Ea 15 Min (11/21/17 ) Functional Activities, Ea 15 (11/21/17 ) Gait Training, Ea 15 Min (11/21/17 ) Nicotine Patch (Nicoderm Patch) (11/22/17 09:00) Patient Visit (11/21/17 ) Speech Sound Lang Comp (11/21/17 ) Patch Removal (Patch Removal) (11/22/17 08:59) Behavorial Health Consult (11/22/17 08:12) Patient Visit (11/21/17 ) Rehab Nursing Orders: Ongoing Assess. of Cognitive Status, Ongoing Assess. of Function Status, Disease Management & Educaiton, DVT Prophylaxis, Fall Prevention, Infection Prevention, Medication Management & Education, Management of Risks & Complications, Management of Skin Intergrity, Nutrition Management, Pain Management, Patient/Family Support, Wound Management PT IPOC Problem List: Activity Tolerance, Functional Strength, Safety, Balance, Gait, Bed Mobility Treatment Plan: Continue Plan of Care Bed Mobility, Education, Functional Activity Deborah, Functional Strength, Group Therapy, Gait, Safety, Therapeutic Exercise, Transfers Treatment Duration: Dec 01, 2017 Frequency: At least 5 of 7 days/Wk (IRF) Estimated Hrs Per Day: 1.5 hours per day OT IPOC Problems: Decreased Activ Tolerance, Decreased UE Strength, Impaired I ADL's, Impaired Self-Care Skills OT Treatment, Training and Edu: Yes Plan of Care: ADL Retraining, Functional Mobility, UE Funct Exercise/Act Treatment Duration: Dec 12, 2017 Frequency: At least 5 of 7 days/Wk (IRF) Estimated Hrs Per Day: 1.[address] IPOC Speech Therapy Treatment Plan: Discontinue ST Treatment Duration: Nov 22, 2017 Frequency: Modified Program (IRF) Estimated Hrs Per Day: Other Dietitian/Sound Recording Technician Dietitian/Sound Recording Technician to monitor nutritional status and make changes and/or recommendations as needed and work with speech pathology on dietary upgrades as the occur. Neuropsychology/Psychology Anxiety /panic attacks Physician IPOC Medical Issues being managed closely and that require the 24 hour availability of a physician anxiety panic attacks chronic pain DM [facility] code 08.2 Etiologic DX Intertrochanteric fracture left femur: Medical Issues: Bowel/Bladder Function, DVT Prophylaxis, Falls Precautions, Infection Protection, Pain Management, Wound Care, Other (List) (as per above) Brief Synthesis of Preadmission Screen, Post-Admission Evaluation, and Therapy Evaluations: 57 yo female who had been Independent but disabled who fell with resulting femur fracture s/p repair Lives with spouse PMH Bipolar disorder panic attacks DM Referred to IRU for ortho rehab with goal of return home with spouse Modified Independent Behav Health has seen Medical Prognosis: Good Anticipated Length of Stay: 12-12-17 Modified Independent to supervision for adls and mobility skills Anticipated d/c Destination: Home with spouse RYNE CARPENTER MD Nov 22, 2017 14:31
--- NOTE | 2017-11-22 14:43 | Physical Therapy Daily Note ---
PT Daily Note-Current Subjective Pt sitting in recliner upon arrival. Pt agrees to PT. Pt wants to discuss process or how ARU works, [employer] Equipment, etc. Pain Numeric Pain Scale: 5-Moderate Pain Location: Lower Location Body Site: Back Pain Description: Ache Mental Status Patient Orientation: Person, Place Transfers Functional [place] Measure 0=Not Assessed/NA 4=Minimal Assistance 1=Total Assistance 5=Supervision or Setup 2=Maximal Assistance 6=Modified [place] 3=Moderate Assistance 7=Complete IndependenceIRFPAI Quality Coding Scale 6 Independent with activity with or without an assistive device 5 Patient requires set up or clean up by helper. Patient completes activity by themselves 4 Supervision or touching assist (CGA). [place] provide cues , steadying assist 3 The helper provides less than half the effort to complete the activity 2 The helper provides more than half the effort to complete the activity 1 Dependent. The helper does all the effort to complete an activity 7 Patient refused to complete or attempt activity 9 The patient did not perform the activity before the current illness or injury 88 Not attempted due to Medical conditions or safety concerns Weight Bearing Right Lower Extremity: Right Full Weight Bearing Left Lower Extremity: Left Full Weight Bearing Treatments Pt & Sp had questions for LINE PALLETIZER over weekly ARU meetings and how they work, as well as what equipment they might need before discharge, what insurance covers & how soon would discharge occur? Pt education covering these items as well as visited with Hall Coordinator to advise. Pt is resting in recliner with all needs met at end of tx, call light in hand. Assessment Current Status: Good Progress Pt reports feeling better after discussion. Pt & Sp have moments of confusion and conversation needs repeated. PT Short Term Goals Short Term Goals Transfers (B,C,W/C) (FIM): 5 PT Alf Goals Alf Goals PT Alf Goals Time Frame: Dec 01, 2017 Transfers (B,C,W/C) (FIM): 6 Sit to Lying (QC): 6 Lying-Sitting on Side/Bed(QC): 6 Sit to Stand (QC): 6 Rollin Roll Left to Right (QC): 6 Chair/Lve-cf-Jxjwy Xfer(QC): 6 Car Transfer (QC): 6 Does the Patient Walk: Yes Gait (FIM): 6 Gait distance (FIM): 3=150 ft Distance: 200' Walk 10 feet (QC): 6 Walk 10ft-Uneven Surface(QC): 6 Walk 50ft with 2 Turns (QC): 6 Walk 150 ft (QC): 6 Gait Level of Assist: 6 Gait Assistive Device: FWW Stairs (FIM): 2 # of Steps: 4 1 Step (curb) (QC): 5 4 Steps (QC): 5 12 Steps (QC): 9 Stairs Level Of Assist: 5 Picking up an Object (QC): 5 PT Plan Problem List Problem List: Activity Tolerance, Functional Strength, Safety, Balance, Gait, Transfer Treatment/Plan Treatment Plan: Continue Plan of Care Treatment Plan: Bed Mobility, Education, Functional Activity Deborah, Functional Strength, Group Therapy, Gait, Safety, Therapeutic Exercise, Transfers Treatment Duration: Dec 01, 2017 Frequency: At least 5 of 7 days/Wk (IRF) Estimated Hrs Per Day: 1.5 hours per day Patient and/or Family Agrees t: Yes Safety Risks/Education Patient Education: Gait Training, Transfer Techniques, Correct Positioning, Disease Process, Safety Issues Teaching Recipient: Patient, Significant Other Teaching Methods: Discussion Response to Teaching: Verbalize Understanding, Reinforcement Needed Time/GCodes Time In: 1300 Time Out: 1330 Total Billed Treatment Time: 30 Total Billed Treatment 1, FA x2 (30m) G Codes Necessary: LOULOU Pa LINE PALLETIZER Nov 22, 2017 14:43
--- NOTE | 2017-11-22 15:47 | Physical Therapy Daily Note ---
PT Daily Note-Current Subjective Patient in recliner pre tx, agrees to PT, has pain of 7/10 in left hip. Will be co-treating with OT for balance training, and endurance due to poor patient endurance and balance issues. Appearance Patient BTB post tx with nurse call, phone, tray, SO in the room. Mental Status Patient Orientation: Person, Place, Situation Attachments: Oxygen Transfers Functional [place] Measure 0=Not Assessed/NA 4=Minimal Assistance 1=Total Assistance 5=Supervision or Setup 2=Maximal Assistance 6=Modified [place] 3=Moderate Assistance 7=Complete IndependenceIRFPAI Quality Coding Scale 6 Independent with activity with or without an assistive device 5 Patient requires set up or clean up by helper. Patient completes activity by themselves 4 Supervision or touching assist (CGA). [place] provide cues , steadying assist 3 The helper provides less than half the effort to complete the activity 2 The helper provides more than half the effort to complete the activity 1 Dependent. The helper does all the effort to complete an activity 7 Patient refused to complete or attempt activity 9 The patient did not perform the activity before the current illness or injury 88 Not attempted due to Medical conditions or safety concerns Transfers (B, C, W/C) (FIM): 3 Scootin Rollin Supine to/from Sit: 3 Sit to/from Stand: 4 Bed to/from Chair: 4 sit to supine mod assist, sit to stand and transfers are CGA, patient needs cues for safety and hand placement Weight Bearing Right Lower Extremity: Right Full Weight Bearing Left Lower Extremity: Left Full Weight Bearing Gait Training Gait (FIM): 2 Distance: 100'x2 Gait Level of Assist: 4 Gait Persons Needed: 1 Gait Assistive Device: FWW slow, antalgic, poor foot clearance and advancement of left leg. Neuromuscular Balance activity catching ball thrown by one therapist and the other steadying patient. Treatments balance activity, ambulation, bed mobility and transfers Assessment Current Status: Fair Progress Patient has poor endurance and needed several rest breaks, gets SOB very easily. PT Short Term Goals Short Term Goals Transfers (B,C,W/C) (FIM): 5 PT Skilled Nursing Goals Skilled Nursing Goals PT Skilled Nursing Goals Time Frame: Dec 01, 2017 Transfers (B,C,W/C) (FIM): 6 Gait (FIM): 6 Gait distance (FIM): 3=150 ft Distance: 200' Gait Level of Assist: 6 Gait Assistive Device: FWW Stairs (FIM): 2 # of Steps: 4 Stairs Level Of Assist: 5 PT Plan Problem List Problem List: Activity Tolerance, Functional Strength, Safety, Balance, Gait, Transfer, Bed Mobility, ROM Treatment/Plan Treatment Plan: Continue Plan of Care Treatment Plan: Bed Mobility, Education, Functional Activity Deborah, Functional Strength, Group Therapy, Gait, Safety, Therapeutic Exercise, Transfers Treatment Duration: Dec 01, 2017 Frequency: At least 5 of 7 days/Wk (IRF) Estimated Hrs Per Day: 1.5 hours per day Patient and/or Family Agrees t: Yes Safety Risks/Education Patient Education: Gait Training, Transfer Techniques, Correct Positioning, Safety Issues Teaching Recipient: Patient Teaching Methods: Demonstration, Discussion Response to Teaching: Reinforcement Needed Time/GCodes Time In: 1510 Time Out: 1537 Total Billed Treatment Time: 27 Total Billed Treatment 1 visit GT 10' NM 17' OT and PT co-treated for the whole 27 min. PT worked on transfers, bed mobility , ambulation and steadying patient during balance activity. ADALGISA YEBOAH PT Nov 22, 2017 15:47
--- NOTE | 2017-11-22 15:50 | Occupational Ther Daily Note ---
OT Current Status-Daily Note Subjective No pain reported. Appearance Pt. up in chair. Agrees to treatment. Mental Status/Objective Patient Orientation: Person, Place Functional [place] Measure 0=Not Assessed/NA 4=Minimal Assistance 1=Total Assistance 5=Supervision or Setup 2=Maximal Assistance 6=Modified [place] 3=Moderate Assistance 7=Complete [place] ADL-Treatment Functional [place] Measure 0=Not Assessed/NA 4=Minimal Assistance 1=Total Assistance 5=Supervision or Setup 2=Maximal Assistance 6=Modified [place] 3=Moderate Assistance 7=Complete IndependenceIRFPAI Quality Coding Scale 6 Independent with activity with or without an assistive device 5 Patient requires set up or clean up by helper. Patient completes activity by themselves 4 Supervision or touching assist (CGA). [place] provide cues , steadying assist 3 The helper provides less than half the effort to complete the activity 2 The helper provides more than half the effort to complete the activity 1 Dependent. The helper does all the effort to complete an activity 7 Patient refused to complete or attempt activity 9 The patient did not perform the activity before the current illness or injury 88 Not attempted due to Medical conditions or safety concerns Transfers (B, C, W/C) (FIM): 4 (CGA to ambulate to therapy gym. Mod assist overall to get bilateral feet into bed.) Other Treatment OT/PT co-treat for session for low endurance. PT worked on standing balance and endurance while OT facilitated UE strength and endurance. Pt stood with close min assist with PT while tossing ball back and forth. Pt. required several breaks and had to sit in chair to recover. All needs met and pt. ambulated back to room. Pt. fatigues easily. Transferred back to bed and all needs met in room. Education OT Patient Education: Correct positioning, Modified ADL techniques, Progress toward Goal/Update tx plan, Purpose of tx/functional activities, Reviewed precautions, Rehab process, Transfer techniques Teaching Recipient: Patient Teaching Methods: Demonstration, Discussion Response to Teaching: Verbalize Understanding, Return Demonstration OT Short Term Goals Short Term Goals Time Frame: Nov 28, 2017 Eating(FIM): 5 Grooming(FIM): 5 Bathing(FIM): 4 Upper Body Dressing(FIM): 5 Lower Body Dressing(FIM): 4 Toileting(FIM): 4 Transfers (B,C,W/C) (FIM): 5 Toilet/Commode Transfer(FIM): 5 Shower Transfer(FIM): 4 Additional Short Term Goals: 1-Demonstrate ADL Tasks, 2-Verbalize Understanding , 3-ImproveStrength/Deborah 1=Demonstrate adherence to instructed precautions during ADL tasks. 2=Patient will verbalize/demonstrate understanding of assistive devices/ modifications for ADL. 3=Patient will improve strength/tolerance for activity to enable patient to perform ADL's. OT Shelter Goals Shelter Goals Time Frame: Dec 12, 2017 Eating (FIM): 6 Eating (QC): 6 Groomin Oral Hygiene (QC): 6 Bathing(FIM): 5 Shower/Bathe Self (QC): 5 Upper Body Dressing(FIM): 5 Upper Body Dressing (QC): 5 Lower Body Dressing(FIM): 5 Lower Body Dressing (QC): 5 On/Off Footwear (QC): 5 Toileting(FIM): 6 Toileting Hygiene (QC): 6 Transfers (B,C,W/C) (FIM): 6 Toilet/Commode Transfer(FIM): 6 Toilet/Commode Transfer (QC): 6 Shower Transfer(FIM): 5 Additional Goals: 1-Demonstrate ADL Tasks, 2-Verbalize Understanding, 3- ImproveStrength/Deborah 1=Demonstrate adherence to instructed precautions during ADL tasks. 2=Patient will verbalize/demonstrate understanding of assistive devices/ modifications for ADL. 3=Patient will improve strength/tolerance for activity to enable patient to perform ADL's. OT Education/Plan Problem List/Assessment Assessment: Decreased Activ Tolerance, Impaired I ADL's, Impaired Self-Care Skills Discharge Recommendations Plan/Recommendations: Continue POC Therapy D/C Recommendations: Home w/ Family Support, Occupational Therapy Home Care Treatment Plan/Plan of Care Treatment,Training & Education: Yes Patient would benefit from OT for education, treatment and training to promote independence in ADL's, mobility, safety and/or upper extremity function for ADL' s. Plan of Care: ADL Retraining, Functional Mobility, UE Funct Exercise/Act Treatment Duration: Dec 12, 2017 Frequency: At least 5 of 7 days/Wk (IRF) Estimated Hrs Per Day: 1.5 hours per day Agreement: Yes Rehab Potential: Fair Time/GCodes Start Time: 15:10 Stop Time: 15:37 Total Time Billed (hr/min): 27 Billed Treatment Time 1, FA x 2 JOSE GUADALUPE BONILLA OT Nov 22, 2017 15:50
[2017-11-22 18:00] VITALS: BP 142/64
[2017-11-22] MEDS: PRAZOSIN 1 MG CAPSULE (MINIPRESS) NON-FORMULARY PO SCH (19:52)
[2017-11-22] MEDS: FENOFIBRATE 134 MG (LOFIBRA) CAPSULE PO SCH (19:53)
[2017-11-22] MEDS: ALPRAZolam 0.25 MG (XANAX) TAB PO PRN (19:53)
[2017-11-22] MEDS: OLANZapine 5 MG (ZyPREXA) TAB PO SCH (19:53)
[2017-11-22] MEDS: DOXEPIN 10 MG (SINEquan) CAP PO SCH (19:53)
[2017-11-23] MEDS: HYDROcodone/APAP 10 MG/325 MG (LORTAB) TAB PO PRN ×5 (04:27→21:58)
[2017-11-23 05:36] VITALS: BP 151/67
[2017-11-23] MEDS: LIPASE/AMYLASE/PROTEASE (PANCRELIPASE) 5,000 UNITS CAP PO SCH ×3 (06:21→17:46)
[2017-11-23] MEDS: PANTOPRAZOLE 20 MG TABLET (PROTONIX) PO SCH (06:21)
[2017-11-23] MEDS: OMEGA 3 (FISH OIL) 1000 MG CAP PO SCH ×2 (06:22→17:46)
[2017-11-23] MEDS: HUMALOG KWIKPEN SQ SCH ×3 (06:22→17:47)
[2017-11-23] MEDS: RT-ALBUTEROL/IPRATROPIUM 3 ML (DUONEB) VIAL INH SCH ×4 (07:54→19:42)
[2017-11-23] MEDS: RT-ADVAIR HFA 115/21 MCG PER PUFF IH SCH ×2 (07:54→19:42)
--- NOTE | 2017-11-23 08:08 | Progress Note (SOAP) ---
Subjective Time Seen by Provider: 08:05 Subjective/Events-last exam Patient complaining of sore throat and lymph node in right side of neck. Patient does have enlarged lymph node right side neck to be evaluated by ENT. To do rapid strep screen Objective Exam Vital Signs Date Time Temp Pulse Resp B/P (MAP) Pulse Ox O2 Delivery O2 Flow Rate FiO2 11/23/17 08:03 Nasal Cannula 2.00 11/23/17 07:54 94 Nasal Cannula 2.00 11/23/17 05:36 98.7 91 19 151/67 (95) 93 Nasal Cannula 2.50 11/22/17 20:05 Nasal Cannula 2.50 11/22/17 19:16 Nasal Cannula 2.00 11/22/17 19:11 93 Nasal Cannula 2.00 11/22/17 18:00 98.4 84 16 142/64 (90) 94 Nasal Cannula 2.50 11/22/17 14:58 95 Nasal Cannula 3.00 11/22/17 11:16 95 Nasal Cannula 3.00 11/22/17 09:00 Nasal Cannula 2.50 I & O 11/23/17 07:00 Intake Total 3210 ml Balance 3210 ml Capillary Refill : Less Than 3 Seconds General Appearance: No Apparent Distress, WD/WN HEENT: Other (Enlarged right lymph node) Neck: Lymphadenopathy (R) Respiratory: No Accessory Muscle Use, No Respiratory Distress Results Lab Laboratory Tests 11/22/17 11:00: Glucometer 255H 11/22/17 15:45: Glucometer 219H 11/22/17 20:33: 11/23/17 05:09: Glucometer 283H Assessment/Plan Assessment/Plan Assess & Plan/Chief Complaint Left femur fracture. FALL Diabetes. COPD.. . 11/22/17. Left femur fracture. Fall. COPD. Diabetes. . 11/23/17. Left femur fracture. FALL. COPD. Diabetes. Lymph node in right side of the neck to be evaluated by ENT Clinical Quality Measures DVT/VTE Risk/Contraindication: Risk Factor Score Per Nursin RFS Level Per Nursing on Admit: 4+=Very High BLAIRE DIXON DO Nov 23, 2017 08:08
[2017-11-23] MEDS: PREGABALIN 75 MG (LYRICA) CAP PO SCH ×3 (08:09→20:51)
[2017-11-23] MEDS: ASPIRIN E.C. 81 MG (ECOTRIN) TAB PO SCH ×2 (08:09→20:50)
[2017-11-23] MEDS: ENALAPRIL 2.5 MG (VASOTEC) TAB PO SCH (08:09)
[2017-11-23] MEDS: FUROSEMIDE 20 MG (LASIX) TAB PO SCH (08:09)
[2017-11-23] MEDS: NICOTINE 14 MG (NICODERM) PATCH TD SCH (08:09)
[2017-11-23] MEDS: FLUoxetine HCL 20 MG (PROzac) CAP PO SCH ×2 (08:10→20:51)
[2017-11-23] MEDS: NICOTINE PATCH REMOVAL TP SCH (08:10)
[2017-11-23] MEDS: INSULIN DEGLUDEC SQ SCH (08:14)
--- NOTE | 2017-11-23 08:14 | PM & R (SOAP) Progress Note ---
Subjective This was a face to face visit with the patient. Date Seen by Provider: Nov 23, 2017 Time Seen by Provider: 07:35 Subjective/Events-last exam Patient was seen in her room this AM Patient c/o sore throat discussed with ER Robertender A rapid strep test to be done also an enlarged Lymph node in neck noted ENT DR Ozuna to be consulted.Patient min assist for transfers Objective Physician Exam Last Set of Vital Signs Vital Signs Date Time Temp Pulse Resp B/P (MAP) Pulse Ox O2 Delivery O2 Flow Rate FiO2 11/23/17 08:03 Nasal Cannula 2.00 11/23/17 07:54 94 11/23/17 05:36 98.7 91 19 151/67 (95) Capillary Refill : Less Than 3 Seconds I&O Intake and Output 11/23/17 00:00 Intake Total 2385 ml Balance 2385 ml Intake Oral 2385 ml # Voids 12 General: Alert, Oriented X3, Cooperative, No Acute Distress, Other (mildly anxious) HEENT: Atraumatic, PERRLA, EOMI, Mucous Memb Moist/[place] Neck: Supple, No JVD Lungs: Clear to Auscultation Heart: Regular Rate Abdomen: Normal Bowel Sounds, Soft, No Tenderness Extremities: Other (Trace edeam left ankle) Neuro: Other (Weakness left hip due to injury and guarding Intermittent tremors Decreased sensation to light touch in feet otherwise generalized weakness Anxiety) Results Lab Data Laboratory Tests 11/20/17 18:11: Glucometer 217H 11/20/17 19:11: Glucometer 248H 11/20/17 20:33: Glucometer 312H 11/21/17 05:25: Glucometer 129H 11/21/17 09:33: White Blood Count 9.6, Red Blood Count 3.48L, Hemoglobin 10.0L, Hematocrit 30L, Mean Corpuscular Volume 86, Mean Corpuscular Hemoglobin 29, Mean Corpuscular Hemoglobin Concent 34, Red Cell Distribution Width 15.2H, Platelet Count 327, Mean Platelet Volume 9.3, Sodium Level 134L, Potassium Level 3.6, Chloride Level 98, Carbon Dioxide Level 28, Anion Gap 8, Blood Urea Nitrogen 8, Creatinine 0.71, Estimat Glomerular Filtration Rate > 60, BUN/Creatinine Ratio 11, Glucose Level 248H, Calcium Level 9.5, Total Bilirubin 0.4, Aspartate Amino Transf (AST/SGOT) 24, Alanine Aminotransferase (ALT/SGPT) 26, Alkaline Phosphatase 88, Total Protein 6.0L, Albumin 3.5 11/21/17 10:56: Glucometer 245H 11/21/17 13:50: Glucometer 275H 11/21/17 16:11: Glucometer 238H 11/21/17 20:56: Glucometer 256H 11/22/17 05:54: Glucometer 192H 11/22/17 11:00: Glucometer 255H 11/22/17 15:45: Glucometer 219H 11/22/17 20:33: 11/23/17 05:09: Glucometer 283H Assessment/Plan Assessment and Plan Left prox femur fracture s/p IM nail ortho 11-16-17 OSH Postop dvt prophylaxis on ASA BID IDDM Anxiety/depression on meds Enlarged Lymph node ENT DR Ozuna to see re need for biopsy Sore throat Rapid strep screen to be done Tobaccoism abstaining Nicoderm patch decreased in dose Diabetic Peripheral neuropathy Plan Continue PT/OT Discharge set tentatively for next week 11-30-17 Strep test as per above ENT consult as per above Team Conference hedl yesterday-See report for full functional update and POC and ELOS (1) Fracture dislocation of left hip joint Co-Morbidities that are continuing to impact the rehab process: (include details ) RYNE CARPENTER MD Nov 23, 2017 08:14
--- NOTE | 2017-11-23 08:42 | Occupational Ther Daily Note ---
OT Current Status-Daily Note Subjective Pt alert, sitting on BSC. Pt agrees to therapy. No c/o pain at this time. Mental Status/Objective Patient Orientation: Person, Place, Time, Situation Functional [place] Measure 0=Not Assessed/NA 4=Minimal Assistance 1=Total Assistance 5=Supervision or Setup 2=Maximal Assistance 6=Modified [place] 3=Moderate Assistance 7=Complete [place] Attachments: Oxygen ADL-Treatment Pt sitting on BSC for toileting. Pt able to complete own hygiene and manipulate pants over hips with close SBA. Lower body dressing completed. Doffs pants and briefs with SBA in standing to push down over hips. Assist to thread briefs and pants over feet to don. Able to hike over hips with SBA. SOA noted during tasks. Assist to lift LE's into bed. Pt was able to lift LE' s more than pt's expects of herself. After therapy, pt lying in bed with call light/phone in reach. All needs met in room. Functional [place] Measure 0=Not Assessed/NA 4=Minimal Assistance 1=Total Assistance 5=Supervision or Setup 2=Maximal Assistance 6=Modified [place] 3=Moderate Assistance 7=Complete IndependenceIRFPAI Quality Coding Scale 6 Independent with activity with or without an assistive device 5 Patient requires set up or clean up by helper. Patient completes activity by themselves 4 Supervision or touching assist (CGA). [place] provide cues , steadying assist 3 The helper provides less than half the effort to complete the activity 2 The helper provides more than half the effort to complete the activity 1 Dependent. The helper does all the effort to complete an activity 7 Patient refused to complete or attempt activity 9 The patient did not perform the activity before the current illness or injury 88 Not attempted due to Medical conditions or safety concerns Lower Body Dressing (FIM): 3 Lower Body Dressing (QC): 3 Toileting (FIM): 5 Toileting Hygiene (QC): 4 Toilet/Commode Transfer (FIM): 5 Toilet Transfer (QC): 4 OT Short Term Goals Short Term Goals Time Frame: Nov 28, 2017 Eating(FIM): 5 Grooming(FIM): 5 Bathing(FIM): 4 Upper Body Dressing(FIM): 5 Lower Body Dressing(FIM): 4 Toileting(FIM): 4 Transfers (B,C,W/C) (FIM): 5 Toilet/Commode Transfer(FIM): 5 Shower Transfer(FIM): 4 Additional Short Term Goals: 1-Demonstrate ADL Tasks, 2-Verbalize Understanding , 3-ImproveStrength/Deborah 1=Demonstrate adherence to instructed precautions during ADL tasks. 2=Patient will verbalize/demonstrate understanding of assistive devices/ modifications for ADL. 3=Patient will improve strength/tolerance for activity to enable patient to perform ADL's. OT Skilled Nursing Goals Cad Developer Goals Time Frame: Dec 12, 2017 Eating (FIM): 6 Eating (QC): 6 Groomin Oral Hygiene (QC): 6 Bathing(FIM): 5 Shower/Bathe Self (QC): 5 Upper Body Dressing(FIM): 5 Upper Body Dressing (QC): 5 Lower Body Dressing(FIM): 5 Lower Body Dressing (QC): 5 On/Off Footwear (QC): 5 Toileting(FIM): 6 Toileting Hygiene (QC): 6 Transfers (B,C,W/C) (FIM): 6 Toilet/Commode Transfer(FIM): 6 Toilet/Commode Transfer (QC): 6 Shower Transfer(FIM): 5 Additional Goals: 1-Demonstrate ADL Tasks, 2-Verbalize Understanding, 3- ImproveStrength/Deborah 1=Demonstrate adherence to instructed precautions during ADL tasks. 2=Patient will verbalize/demonstrate understanding of assistive devices/ modifications for ADL. 3=Patient will improve strength/tolerance for activity to enable patient to perform ADL's. OT Education/Plan Discharge Recommendations Plan/Recommendations: Continue POC Treatment Plan/Plan of Care Patient would benefit from OT for education, treatment and training to promote independence in ADL's, mobility, safety and/or upper extremity function for ADL' s. Plan of Care: ADL Retraining, Functional Mobility, UE Funct Exercise/Act Treatment Duration: Dec 12, 2017 Frequency: At least 5 of 7 days/Wk (IRF) Estimated Hrs Per Day: 1.5 hours per day Agreement: Yes Rehab Potential: Fair Time/GCodes Start Time: 08:25 Stop Time: 08:40 Total Time Billed (hr/min): 15 Billed Treatment Time 1 visit-ADL 1 (15 min) JONE TALBOT Nov 23, 2017 08:42
--- NOTE | 2017-11-23 12:05 | Physical Therapy Daily Note ---
PT Daily Note-Current Subjective Pt sitting up in bed upon arrival. Pt agrees to PT. Pain Numeric Pain Scale: 9 Location: Left Location Body Site: Knee Pain Description: Ache Mental Status Patient Orientation: Person, Place Attachments: Oxygen (2L) Transfers Functional [place] Measure 0=Not Assessed/NA 4=Minimal Assistance 1=Total Assistance 5=Supervision or Setup 2=Maximal Assistance 6=Modified [place] 3=Moderate Assistance 7=Complete IndependenceIRFPAI Quality Coding Scale 6 Independent with activity with or without an assistive device 5 Patient requires set up or clean up by helper. Patient completes activity by themselves 4 Supervision or touching assist (CGA). [place] provide cues , steadying assist 3 The helper provides less than half the effort to complete the activity 2 The helper provides more than half the effort to complete the activity 1 Dependent. The helper does all the effort to complete an activity 7 Patient refused to complete or attempt activity 9 The patient did not perform the activity before the current illness or injury 88 Not attempted due to Medical conditions or safety concerns Scootin Rollin Roll Left to Right (QC): 4 Supine to/from Sit: 4 Sit to/from Stand: 5 Sit to Lying (QC): 4 Sit to Stand (QC): 5 Weight Bearing Right Lower Extremity: Right Full Weight Bearing Left Lower Extremity: Left Full Weight Bearing Gait Training Does the Patient Walk?: Yes Distance (FIM): 3=150 ft Distance: 250' Walk 10 feet (QC): 5 Walk 50 ft with 2 Turns(QC): 5 Walk 150 ft (QC): 5 Gait Level of Assist: 5 Gait Persons Needed: 1 Gait Assistive Device: FWW Pt walks with a very slow but steady miguelina, no LOB. Pt WB throug UE instead of LE and is encouraged to WB more with LE. Wheelchair Training Does the Pt Use a Wheelchair?: No Exercises Seated Therapy Exercises: Ankle pumps, Long arc quads, Hip flexion, Kicking activity Seated Reps: 15 NuStep Minutes: 16 NuStep Workload: 3 Treatments Pt transfers from Supine to EOB at [facility] then EOB to standing using FWW at [facility]. Pt uses restroom before leaving room for tx. Pt ambulates in hallway using FWW at [facility]. Pt uses NuStep for 16m at [facility] then short rest. Pt then uses completes Seated Ex before walking again, then return to Therapy Gym to meet OT for tx. Pt has all needs met at end of tx. Assessment Current Status: Good Progress Pt fatigues easily and continues to need rest breaks while ambulating. Pt also needs assistance with lifting LLE into bed. PT Short Term Goals Short Term Goals Transfers (B,C,W/C) (FIM): 5 PT Gas Meter Repair Supervisor Goals Gas Meter Repair Supervisor Goals PT Gas Meter Repair Supervisor Goals Time Frame: Dec 01, 2017 Transfers (B,C,W/C) (FIM): 6 Sit to Lying (QC): 6 Lying-Sitting on Side/Bed(QC): 6 Sit to Stand (QC): 6 Rollin Roll Left to Right (QC): 6 Chair/Yjo-lj-Hflsy Xfer(QC): 6 Car Transfer (QC): 6 Does the Patient Walk: Yes Gait (FIM): 6 Gait distance (FIM): 3=150 ft Distance: 200' Walk 10 feet (QC): 6 Walk 10ft-Uneven Surface(QC): 6 Walk 50ft with 2 Turns (QC): 6 Walk 150 ft (QC): 6 Gait Level of Assist: 6 Gait Assistive Device: FWW Stairs (FIM): 2 # of Steps: 4 1 Step (curb) (QC): 5 4 Steps (QC): 5 12 Steps (QC): 9 Stairs Level Of Assist: 5 Picking up an Object (QC): 5 PT Plan Problem List Problem List: Activity Tolerance, Functional Strength, Safety, Balance, Gait, Transfer Treatment/Plan Treatment Plan: Continue Plan of Care Treatment Plan: Bed Mobility, Education, Functional Activity Deborah, Functional Strength, Group Therapy, Gait, Safety, Therapeutic Exercise, Transfers Treatment Duration: Dec 01, 2017 Frequency: At least 5 of 7 days/Wk (IRF) Estimated Hrs Per Day: 1.5 hours per day Patient and/or Family Agrees t: Yes Safety Risks/Education Patient Education: Gait Training, Transfer Techniques, Correct Positioning, Safety Issues Teaching Recipient: Patient Teaching Methods: Discussion Response to Teaching: Verbalize Understanding Time/GCodes Time In: 1000 Time Out: 1100 Total Billed Treatment Time: 60 Total Billed Treatment 1, GT x2 (30m) & EX x2 (30m) G Codes Necessary: LOULOU Pa ENTERPRISE DATA ARCHITECT Nov 23, 2017 12:05
--- NOTE | 2017-11-23 13:53 | Occupational Ther Daily Note ---
OT Current Status-Daily Note Subjective Pt. does not report a pain level, but does ask for pain medication. Nursing gives pt. pain medication. Appearance Pt. in bed. Agrees to work with OT. Declines showering, as she did it yesterday. Mental Status/Objective Patient Orientation: Person, Place, Time, Situation Functional [facility] Measure 0=Not Assessed/NA 4=Minimal Assistance 1=Total Assistance 5=Supervision or Setup 2=Maximal Assistance 6=Modified [facility] 3=Moderate Assistance 7=Complete [facility] Attachments: Oxygen ADL-Treatment Functional [facility] Measure 0=Not Assessed/NA 4=Minimal Assistance 1=Total Assistance 5=Supervision or Setup 2=Maximal Assistance 6=Modified [facility] 3=Moderate Assistance 7=Complete IndependenceIRFPAI Quality Coding Scale 6 Independent with activity with or without an assistive device 5 Patient requires set up or clean up by helper. Patient completes activity by themselves 4 Supervision or touching assist (CGA). [place] provide cues , steadying assist 3 The helper provides less than half the effort to complete the activity 2 The helper provides more than half the effort to complete the activity 1 Dependent. The helper does all the effort to complete an activity 7 Patient refused to complete or attempt activity 9 The patient did not perform the activity before the current illness or injury 88 Not attempted due to Medical conditions or safety concerns Transfers (B, C, W/C) (FIM): 4 (Min assist for bed mobility to get in and out of bed. SBA to ambulate with walker.) Toilet/Commode Transfer (FIM): 5 Toilet Transfer (QC): 5 Other Treatment Pt. agreed to work with OT. Ambulated with SBA to therapy gym. Completed armbike at mod resistance to increase overall UE strength. Tolerated treatment well. Required multiple rest breaks. After this task, pt. transferred to therapy mat to work on getting feet into and out of bed. Pt. is unable to lift left LE into bed. Practiced utilizing leg design manager and gait belt tied around left foot to get left LE into bed. Pt. able to do this with effort, but does state that it hurts and she required rest in between each trial. Pt. transferred back to chair and waiting for PT. All needs met. Education OT Patient Education: Correct positioning, Exercise program, Modified ADL techniques, Progress toward Goal/Update tx plan, Purpose of tx/functional activities, Reviewed precautions, Rehab process, Transfer techniques, Use of adapted equipment Teaching Recipient: Patient Teaching Methods: Demonstration, Discussion Response to Teaching: Verbalize Understanding, Return Demonstration OT Short Term Goals Short Term Goals Time Frame: Nov 28, 2017 Eating(FIM): 5 Grooming(FIM): 5 Bathing(FIM): 4 Upper Body Dressing(FIM): 5 Lower Body Dressing(FIM): 4 Toileting(FIM): 4 Transfers (B,C,W/C) (FIM): 5 Toilet/Commode Transfer(FIM): 5 Shower Transfer(FIM): 4 Additional Short Term Goals: 1-Demonstrate ADL Tasks, 2-Verbalize Understanding , 3-ImproveStrength/Deborah 1=Demonstrate adherence to instructed precautions during ADL tasks. 2=Patient will verbalize/demonstrate understanding of assistive devices/ modifications for ADL. 3=Patient will improve strength/tolerance for activity to enable patient to perform ADL's. OT Computer Graphics Illustrator Goals Chcf Goals Time Frame: Dec 12, 2017 Eating (FIM): 6 Eating (QC): 6 Groomin Oral Hygiene (QC): 6 Bathing(FIM): 5 Shower/Bathe Self (QC): 5 Upper Body Dressing(FIM): 5 Upper Body Dressing (QC): 5 Lower Body Dressing(FIM): 5 Lower Body Dressing (QC): 5 On/Off Footwear (QC): 5 Toileting(FIM): 6 Toileting Hygiene (QC): 6 Transfers (B,C,W/C) (FIM): 6 Toilet/Commode Transfer(FIM): 6 Toilet/Commode Transfer (QC): 6 Shower Transfer(FIM): 5 Additional Goals: 1-Demonstrate ADL Tasks, 2-Verbalize Understanding, 3- ImproveStrength/Deobrah 1=Demonstrate adherence to instructed precautions during ADL tasks. 2=Patient will verbalize/demonstrate understanding of assistive devices/ modifications for ADL. 3=Patient will improve strength/tolerance for activity to enable patient to perform ADL's. OT Education/Plan Problem List/Assessment Assessment: Decreased Activ Tolerance, Decreased UE Strength, Impaired Bed Mobility, Impaired I ADL's, Impaired Self-Care Skills, Restricted Funct UE ROM Discharge Recommendations Plan/Recommendations: Continue POC Therapy D/C Recommendations: Home w/ Family Support, Occupational Therapy Home Care Treatment Plan/Plan of Care Treatment,Training & Education: Yes Patient would benefit from OT for education, treatment and training to promote independence in ADL's, mobility, safety and/or upper extremity function for ADL' s. Plan of Care: ADL Retraining, Functional Mobility, UE Funct Exercise/Act Treatment Duration: Dec 12, 2017 Frequency: At least 5 of 7 days/Wk (IRF) Estimated Hrs Per Day: 1.5 hours per day Agreement: Yes Rehab Potential: Fair Time/GCodes Start Time: 09:00 Stop Time: 10:00 Total Time Billed (hr/min): 60 Billed Treatment Time 1, Ex x 30minutes, FA x 30minutes JOSE GUADALUPE BONILLA OT Nov 23, 2017 13:53
--- NOTE | 2017-11-23 14:19 | Occupational Ther Daily Note ---
OT Current Status-Daily Note Subjective Pt. states that her left LE is "throbbing," but does not state a pain level. It is not time for her to have pain medication. OT provides pt. with ice pack to put on hip. Appearance Pt. is up in chair. Has just finished with PT. Agrees to work with OT. Mental Status/Objective Patient Orientation: Person, Place Functional [place] Measure 0=Not Assessed/NA 4=Minimal Assistance 1=Total Assistance 5=Supervision or Setup 2=Maximal Assistance 6=Modified [place] 3=Moderate Assistance 7=Complete [place] ADL-Treatment Functional [place] Measure 0=Not Assessed/NA 4=Minimal Assistance 1=Total Assistance 5=Supervision or Setup 2=Maximal Assistance 6=Modified [place] 3=Moderate Assistance 7=Complete IndependenceIRFPAI Quality Coding Scale 6 Independent with activity with or without an assistive device 5 Patient requires set up or clean up by helper. Patient completes activity by themselves 4 Supervision or touching assist (CGA). [place] provide cues , steadying assist 3 The helper provides less than half the effort to complete the activity 2 The helper provides more than half the effort to complete the activity 1 Dependent. The helper does all the effort to complete an activity 7 Patient refused to complete or attempt activity 9 The patient did not perform the activity before the current illness or injury 88 Not attempted due to Medical conditions or safety concerns Toileting (FIM): 5 Toileting Hygiene (QC): 5 Transfers (B, C, W/C) (FIM): 5 (Pt. able to ambulate with SBA and is able to get bilateral LE into bed with SBA.) Toilet/Commode Transfer (FIM): 5 Toilet Transfer (QC): 5 Other Treatment Pt. tolerated OT treatment this date. Pt. donned 1 lb. wrist weights and completed series of fine motor coordination and strengthening tasks. Pt. completed arm arc back and forth, therapy pegs, and fine motor clothespins. Ambulated back to room after treatment and toileted with SBA. All needs met back in bed. Education OT Patient Education: Correct positioning, Modified ADL techniques, Progress toward Goal/Update tx plan, Purpose of tx/functional activities, Reviewed precautions, Rehab process, Transfer techniques Teaching Recipient: Patient Teaching Methods: Demonstration, Discussion Response to Teaching: Verbalize Understanding, Return Demonstration OT Short Term Goals Short Term Goals Time Frame: Nov 28, 2017 Eating(FIM): 5 Grooming(FIM): 5 Bathing(FIM): 4 Upper Body Dressing(FIM): 5 Lower Body Dressing(FIM): 4 Toileting(FIM): 4 Transfers (B,C,W/C) (FIM): 5 Toilet/Commode Transfer(FIM): 5 Shower Transfer(FIM): 4 Additional Short Term Goals: 1-Demonstrate ADL Tasks, 2-Verbalize Understanding , 3-ImproveStrength/Deborah 1=Demonstrate adherence to instructed precautions during ADL tasks. 2=Patient will verbalize/demonstrate understanding of assistive devices/ modifications for ADL. 3=Patient will improve strength/tolerance for activity to enable patient to perform ADL's. OT Compliance And Control Analyst Goals Compliance And Control Analyst Goals Time Frame: Dec 12, 2017 Eating (FIM): 6 Eating (QC): 6 Groomin Oral Hygiene (QC): 6 Bathing(FIM): 5 Shower/Bathe Self (QC): 5 Upper Body Dressing(FIM): 5 Upper Body Dressing (QC): 5 Lower Body Dressing(FIM): 5 Lower Body Dressing (QC): 5 On/Off Footwear (QC): 5 Toileting(FIM): 6 Toileting Hygiene (QC): 6 Transfers (B,C,W/C) (FIM): 6 Toilet/Commode Transfer(FIM): 6 Toilet/Commode Transfer (QC): 6 Shower Transfer(FIM): 5 Additional Goals: 1-Demonstrate ADL Tasks, 2-Verbalize Understanding, 3- ImproveStrength/Deborah 1=Demonstrate adherence to instructed precautions during ADL tasks. 2=Patient will verbalize/demonstrate understanding of assistive devices/ modifications for ADL. 3=Patient will improve strength/tolerance for activity to enable patient to perform ADL's. OT Education/Plan Problem List/Assessment Assessment: Decreased Activ Tolerance, Decreased UE Strength, Impaired Bed Mobility, Impaired Funct Balance, Impaired I ADL's, Impaired Self-Care Skills Discharge Recommendations Plan/Recommendations: Continue POC Therapy D/C Recommendations: Home w/ Family Support, Occupational Therapy Home Care, Scheduled Assistance Equpiment Recommendations-D/C: Hip Kit Treatment Plan/Plan of Care Treatment,Training & Education: Yes Patient would benefit from OT for education, treatment and training to promote independence in ADL's, mobility, safety and/or upper extremity function for ADL' s. Plan of Care: ADL Retraining, Functional Mobility, UE Funct Exercise/Act Treatment Duration: Dec 12, 2017 Frequency: At least 5 of 7 days/Wk (IRF) Estimated Hrs Per Day: 1.5 hours per day Agreement: Yes Rehab Potential: Fair Time/GCodes Start Time: 11:00 Stop Time: 12:00 Total Time Billed (hr/min): 60 Billed Treatment Time 1, FA x 45minutes, ADL x 15minutes JOSE GUADALUPE BONILLA OT Nov 23, 2017 14:19
--- NOTE | 2017-11-23 15:18 | Physical Therapy Daily Note ---
PT Daily Note-Current Subjective Pt sitting up in bed upon arrival. Pt agrees to PT. Pain Numeric Pain Scale: 9 Location: Left Location Body Site: Knee Pain Description: Ache Mental Status Patient Orientation: Person, Place Transfers Functional [place] Measure 0=Not Assessed/NA 4=Minimal Assistance 1=Total Assistance 5=Supervision or Setup 2=Maximal Assistance 6=Modified [place] 3=Moderate Assistance 7=Complete IndependenceIRFPAI Quality Coding Scale 6 Independent with activity with or without an assistive device 5 Patient requires set up or clean up by helper. Patient completes activity by themselves 4 Supervision or touching assist (CGA). [place] provide cues , steadying assist 3 The helper provides less than half the effort to complete the activity 2 The helper provides more than half the effort to complete the activity 1 Dependent. The helper does all the effort to complete an activity 7 Patient refused to complete or attempt activity 9 The patient did not perform the activity before the current illness or injury 88 Not attempted due to Medical conditions or safety concerns Scootin Rollin Roll Left to Right (QC): 4 Supine to/from Sit: 4 Sit to/from Stand: 5 Sit to Lying (QC): 4 Sit to Stand (QC): 5 Weight Bearing Right Lower Extremity: Right Full Weight Bearing Left Lower Extremity: Left Full Weight Bearing Gait Training Does the Patient Walk?: Yes Distance (FIM): 1=up to 49 ft Distance: 25' Walk 10 feet (QC): 5 Gait Level of Assist: 5 Gait Persons Needed: 1 Gait Assistive Device: FWW Pt walks with slow, but steady miguelina, no LOB. Wheelchair Training Does the Pt Use a Wheelchair?: No Exercises Supine Ex: Ankle pumps, Quad Set, Heel Slides, Straight leg raise, Hip abd/add Supine Reps: 15 Seated Therapy Exercises: Ankle pumps, Long arc quads, Hip flexion, Kicking activity Seated Reps: 15 Treatments Pt transfers from bed to standing at SBA. Pt ambulates to restroom before returning to EOB. Pt completes Seated Ex at EOB. Pt given HEP, red Tband & shown again how to use gait belt to lift LLE into bed. MANAGER ROOFING, pt & sp go over expectations & tentative discharge day of of next week (11/30) not Monday as pt thought. Pt resting in bed at end of tx with all needs met at end of tx, call light in hand. Assessment Current Status: Good Progress Pt fatigues easily and reports pain during tx with no relief with pain med. PT Short Term Goals Short Term Goals Transfers (B,C,W/C) (FIM): 5 PT Mutuel Clerk Goals Care Home Goals PT Care Home Goals Time Frame: Dec 01, 2017 Transfers (B,C,W/C) (FIM): 6 Sit to Lying (QC): 6 Lying-Sitting on Side/Bed(QC): 6 Sit to Stand (QC): 6 Rollin Roll Left to Right (QC): 6 Chair/Czj-en-Gdaji Xfer(QC): 6 Car Transfer (QC): 6 Does the Patient Walk: Yes Gait (FIM): 6 Gait distance (FIM): 3=150 ft Distance: 200' Walk 10 feet (QC): 6 Walk 10ft-Uneven Surface(QC): 6 Walk 50ft with 2 Turns (QC): 6 Walk 150 ft (QC): 6 Gait Level of Assist: 6 Gait Assistive Device: FWW Stairs (FIM): 2 # of Steps: 4 1 Step (curb) (QC): 5 4 Steps (QC): 5 12 Steps (QC): 9 Stairs Level Of Assist: 5 Picking up an Object (QC): 5 PT Plan Problem List Problem List: Activity Tolerance, Functional Strength, Safety, Balance, Gait, Transfer Treatment/Plan Treatment Plan: Continue Plan of Care Treatment Plan: Bed Mobility, Education, Functional Activity Deborah, Functional Strength, Group Therapy, Gait, Safety, Therapeutic Exercise, Transfers Treatment Duration: Dec 01, 2017 Frequency: At least 5 of 7 days/Wk (IRF) Estimated Hrs Per Day: 1.5 hours per day Patient and/or Family Agrees t: Yes Safety Risks/Education Patient Education: Gait Training, Transfer Techniques, Correct Positioning, Safety Issues Teaching Recipient: Patient Teaching Methods: Discussion Response to Teaching: Verbalize Understanding Time/GCodes Time In: 1300 Time Out: 1350 Total Billed Treatment Time: 50 Total Billed Treatment 1, FA x2 (30m) & Ex (20m) G Codes Necessary: LOULOU Pa MANAGER ROOFING Nov 23, 2017 15:18
[2017-11-23 16:44] VITALS: BP 150/72
[2017-11-23] MEDS: FENOFIBRATE 134 MG (LOFIBRA) CAPSULE PO SCH (20:50)
[2017-11-23] MEDS: OLANZapine 5 MG (ZyPREXA) TAB PO SCH (20:51)
[2017-11-23] MEDS: DOXEPIN 10 MG (SINEquan) CAP PO SCH (20:51)
[2017-11-23] MEDS: PRAZOSIN 1 MG CAPSULE (MINIPRESS) NON-FORMULARY PO SCH (20:52)
[2017-11-23] MEDS: ALPRAZolam 0.25 MG (XANAX) TAB PO PRN (22:23)
[2017-11-24] MEDS: HYDROcodone/APAP 10 MG/325 MG (LORTAB) TAB PO PRN ×4 (04:08→21:23)
[2017-11-24 05:00] VITALS: BP 100/69
[2017-11-24] MEDS: OMEGA 3 (FISH OIL) 1000 MG CAP PO SCH ×2 (06:03→16:49)
[2017-11-24] MEDS: LIPASE/AMYLASE/PROTEASE (PANCRELIPASE) 5,000 UNITS CAP PO SCH ×3 (06:04→16:49)
[2017-11-24] MEDS: PANTOPRAZOLE 20 MG TABLET (PROTONIX) PO SCH (06:04)
[2017-11-24] MEDS: HUMALOG KWIKPEN SQ SCH ×3 (06:20→17:36)
[2017-11-24] MEDS: INSULIN DEGLUDEC SQ SCH (06:22)
[2017-11-24] MEDS: RT-ALBUTEROL/IPRATROPIUM 3 ML (DUONEB) VIAL INH SCH ×4 (06:47→19:40)
[2017-11-24] MEDS: RT-ADVAIR HFA 115/21 MCG PER PUFF IH SCH ×2 (06:48→19:40)
--- NOTE | 2017-11-24 06:56 | Progress Note-Standard ---
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
--- NOTE | 2017-11-24 07:52 | Progress Note (SOAP) ---
Subjective Time Seen by Provider: 07:50 Subjective/Events-last exam Patient feeling good today. To have CAT scan of neck today. Patient seen by ENT. Sugars are elevated to increase tresiba Objective Exam Vital Signs Date Time Temp Pulse Resp B/P (MAP) Pulse Ox O2 Delivery O2 Flow Rate FiO2 11/24/17 06:49 92 Nasal Cannula 2.00 11/24/17 06:48 78 Nasal Cannula 2.00 11/24/17 05:00 97.4 84 18 100/69 (79) 96 Nasal Cannula 2.00 11/23/17 21:29 Nasal Cannula 2.50 11/23/17 16:44 99.0 84 16 150/72 (98) 96 Nasal Cannula 2.00 11/23/17 14:46 95 Nasal Cannula 2.00 11/23/17 09:00 Nasal Cannula 2.50 11/23/17 08:03 Nasal Cannula 2.00 11/23/17 07:54 94 Nasal Cannula 2.00 I & O 11/24/17 07:00 Intake Total 3360 ml Output Total 4200 ml Balance -840 ml Capillary Refill : Less Than 3 Seconds General Appearance: No Apparent Distress, WD/WN HEENT: Other (Right neck mass) Neck: Full Range of Motion, Other (Right neck mass) Respiratory: No Accessory Muscle Use, No Respiratory Distress, Decreased Breath Sounds Gastrointestinal: non tender, soft Results Lab Laboratory Tests 11/23/17 10:52: Glucometer 286H 11/23/17 15:15: Group A Streptococcus Screen NEGATIVE 11/23/17 16:24: Glucometer 217H 11/24/17 05:32: Glucometer 252H Assessment/Plan Assessment/Plan Assess & Plan/Chief Complaint Left femur fracture. FALL Diabetes. COPD.. . 11/22/17. Left femur fracture. Fall. COPD. Diabetes. . 11/23/17. Left femur fracture. FALL. COPD. Diabetes. Lymph node in right side of the neck to be evaluated by ENT. . 11/24/17 left femur fracture. fall COPD. To evaluate mass in right side of neck Clinical Quality Measures DVT/VTE Risk/Contraindication: Risk Factor Score Per Nursin RFS Level Per Nursing on Admit: 4+=Very High BLAIRE DIXON DO Nov 24, 2017 07:52
--- NOTE | 2017-11-24 08:24 | PM & R (SOAP) Progress Note ---
Subjective This was a face to face visit with the patient. Date Seen by Provider: Nov 24, 2017 Time Seen by Provider: 07:35 Subjective/Events-last exam Patient was seen in her room this AM Patient min assist for transfers Appreciate DR Good note Discussed case with DR Kaley coreas right neck mass.Imaging ssssstudy to be done and possible needle biopsy with IR.Strep screen negative Objective Physician Exam Last Set of Vital Signs Vital Signs Date Time Temp Pulse Resp B/P (MAP) Pulse Ox O2 Delivery O2 Flow Rate FiO2 11/24/17 06:49 92 Nasal Cannula 2.00 11/24/17 05:00 97.4 84 18 100/69 (79) Capillary Refill : Less Than 3 Seconds I&O Intake and Output 11/24/17 00:00 Intake Total 2460 ml Balance 2460 ml Intake Oral 2460 ml # Voids 31 General: Alert, Oriented X3, Cooperative, No Acute Distress, Other (mildly anxious) HEENT: Atraumatic, PERRLA, EOMI, Mucous Memb Moist/Bynum Neck: Supple, No JVD Lungs: Clear to Auscultation Heart: Regular Rate Abdomen: Normal Bowel Sounds, Soft, No Tenderness Extremities: Other (Trace edeam left ankle) Neuro: Other (Weakness left hip due to injury and guarding Intermittent tremors Decreased sensation to light touch in feet otherwise generalized weakness Anxiety) Results Lab Data Laboratory Tests 11/21/17 09:33: White Blood Count 9.6, Red Blood Count 3.48L, Hemoglobin 10.0L, Hematocrit 30L, Mean Corpuscular Volume 86, Mean Corpuscular Hemoglobin 29, Mean Corpuscular Hemoglobin Concent 34, Red Cell Distribution Width 15.2H, Platelet Count 327, Mean Platelet Volume 9.3, Sodium Level 134L, Potassium Level 3.6, Chloride Level 98, Carbon Dioxide Level 28, Anion Gap 8, Blood Urea Nitrogen 8, Creatinine 0.71, Estimat Glomerular Filtration Rate > 60, BUN/Creatinine Ratio 11, Glucose Level 248H, Calcium Level 9.5, Total Bilirubin 0.4, Aspartate Amino Transf (AST/SGOT) 24, Alanine Aminotransferase (ALT/SGPT) 26, Alkaline Phosphatase 88, Total Protein 6.0L, Albumin 3.5 11/21/17 10:56: Glucometer 245H 11/21/17 13:50: Glucometer 275H 11/21/17 16:11: Glucometer 238H 11/21/17 20:56: Glucometer 256H 11/22/17 05:54: Glucometer 192H 11/22/17 11:00: Glucometer 255H 11/22/17 15:45: Glucometer 219H 11/22/17 20:33: 11/23/17 05:09: Glucometer 283H 11/23/17 10:52: Glucometer 286H 11/23/17 15:15: Group A Streptococcus Screen NEGATIVE 11/23/17 16:24: Glucometer 217H 11/24/17 05:32: Glucometer 252H Assessment/Plan Assessment and Plan Left prox femur fracture s/p IM nail [id number] Postop dvt prophylaxis on ASA BID IDDM Anxiety /depression on med RT parotid tail mass Sore throat resolved Tobaccoism abstaining Diabetic PN Plan Continue PT/OT F/u study re parotid mass-see orders F/U with DR veliz (1) Fracture dislocation of left hip joint Co-Morbidities that are continuing to impact the rehab process: (include details ) RYNE CARPENTER MD Nov 24, 2017 08:24
--- NOTE | 2017-11-24 08:58 | Physical Therapy Daily Note ---
PT Daily Note-Current Subjective Patient in bed pre tx, agrees to PT, has pain of 9/10 in left leg. Appearance Patient in bed post tx with nurse call, phone, tray, all needs met. Mental Status Patient Orientation: Person, Place, Situation Attachments: Oxygen Transfers Functional [place] Measure 0=Not Assessed/NA 4=Minimal Assistance 1=Total Assistance 5=Supervision or Setup 2=Maximal Assistance 6=Modified [place] 3=Moderate Assistance 7=Complete IndependenceIRFPAI Quality Coding Scale 6 Independent with activity with or without an assistive device 5 Patient requires set up or clean up by helper. Patient completes activity by themselves 4 Supervision or touching assist (CGA). [place] provide cues , steadying assist 3 The helper provides less than half the effort to complete the activity 2 The helper provides more than half the effort to complete the activity 1 Dependent. The helper does all the effort to complete an activity 7 Patient refused to complete or attempt activity 9 The patient did not perform the activity before the current illness or injury 88 Not attempted due to Medical conditions or safety concerns Transfers (B, C, W/C) (FIM): 4 Rollin Supine to/from Sit: 4 Sit to/from Stand: 5 Bed to/from Chair: 5 Patient needs min assist getting her left leg into and out of bed. Weight Bearing Right Lower Extremity: Right Full Weight Bearing Left Lower Extremity: Left Full Weight Bearing Gait Training Gait (FIM): 5 Distance: 200', 100' Gait Level of Assist: 5 Gait Persons Needed: 1 Gait Assistive Device: FWW slow, antalgic ambulation Exercises Standing: Heel/toe raises Standing Reps: 15 sit to stand 2 sets of 10 NuStep Minutes: 15 NuStep Workload: 3 Treatments bed mobility and transfers, ambulation, functional strengthening/ROM, patient was also toileted once Assessment Current Status: Fair Progress improving endurance and ambulation PT Short Term Goals Short Term Goals Transfers (B,C,W/C) (FIM): 5 PT Milking Machine Technician Goals Milking Machine Technician Goals PT Chcf Goals Time Frame: Dec 01, 2017 Transfers (B,C,W/C) (FIM): 6 Sit to Lying (QC): 6 Lying-Sitting on Side/Bed(QC): 6 Sit to Stand (QC): 6 Rollin Roll Left to Right (QC): 6 Chair/Jeb-ux-Mztig Xfer(QC): 6 Car Transfer (QC): 6 Does the Patient Walk: Yes Gait (FIM): 6 Gait distance (FIM): 3=150 ft Distance: 200' Walk 10 feet (QC): 6 Walk 10ft-Uneven Surface(QC): 6 Walk 50ft with 2 Turns (QC): 6 Walk 150 ft (QC): 6 Gait Level of Assist: 6 Gait Assistive Device: FWW Stairs (FIM): 2 # of Steps: 4 1 Step (curb) (QC): 5 4 Steps (QC): 5 12 Steps (QC): 9 Stairs Level Of Assist: 5 Picking up an Object (QC): 5 PT Plan Problem List Problem List: Activity Tolerance, Functional Strength, Safety, Balance, Gait, Transfer, Bed Mobility, ROM Treatment/Plan Treatment Plan: Continue Plan of Care Treatment Plan: Bed Mobility, Education, Functional Activity Deborah, Functional Strength, Group Therapy, Gait, Safety, Therapeutic Exercise, Transfers Treatment Duration: Dec 01, 2017 Frequency: At least 5 of 7 days/Wk (IRF) Estimated Hrs Per Day: 1.5 hours per day Patient and/or Family Agrees t: Yes Safety Risks/Education Patient Education: Gait Training, Transfer Techniques, Correct Positioning, Safety Issues Teaching Recipient: Patient Teaching Methods: Handout, Discussion Response to Teaching: Reinforcement Needed Time/GCodes Time In: 0800 Time Out: 0900 Total Billed Treatment Time: 60 Total Billed Treatment 1 visit GT 30' FA 10' EX 20' ADALGISA YEBOAH PT Nov 24, 2017 08:58
[2017-11-24 09:09] VITALS: BP 151/74
[2017-11-24] MEDS: FUROSEMIDE 20 MG (LASIX) TAB PO SCH (09:18)
[2017-11-24] MEDS: NICOTINE 14 MG (NICODERM) PATCH TD SCH (09:18)
[2017-11-24] MEDS: ENALAPRIL 2.5 MG (VASOTEC) TAB PO SCH (09:18)
[2017-11-24] MEDS: ASPIRIN E.C. 81 MG (ECOTRIN) TAB PO SCH ×2 (09:18→21:22)
[2017-11-24] MEDS: FLUoxetine HCL 20 MG (PROzac) CAP PO SCH ×2 (09:18→21:22)
[2017-11-24] MEDS: PREGABALIN 75 MG (LYRICA) CAP PO SCH ×3 (09:19→21:22)
[2017-11-24] MEDS: NICOTINE PATCH REMOVAL TP SCH (09:19)
[2017-11-24] MEDS: ALPRAZolam 0.25 MG (XANAX) TAB PO PRN ×2 (12:18→21:21)
--- NOTE | 2017-11-24 13:15 | Occupational Ther Daily Note ---
OT Current Status-Daily Note Subjective Pt seen in room, up in bed, agreeable to OT. No pain mentioned except when lifting L leg during shower. Appearance Alert, cooperative Mental Status/Objective Functional [place] Measure 0=Not Assessed/NA 4=Minimal Assistance 1=Total Assistance 5=Supervision or Setup 2=Maximal Assistance 6=Modified [place] 3=Moderate Assistance 7=Complete Jena ADL-Treatment Pt requested gait belt and used it to swing L leg off mattress. Sit to stand with SBA. Walked SBA, FWW into bathroom and got on/off tall toilet with SBA, grab bar, FWW. Cues for hand placement. Walked SBA, FWW to shower and needed CGA , cues to transfer in/out of shower and on/off bench, using grab bars. Pt washed and dried all parts with CGA when standing to dry bottom. Tremors noted in extremities during all ADLs. Dressed in shower, using dressing stick and also on bed, using sock aid. O2 on nc except when pt took it off to dress/ undress or to brush hair. Pt left sitting EOB for respiratory therapy tx. Functional Jena Measure 0=Not Assessed/NA 4=Minimal Assistance 1=Total Assistance 5=Supervision or Setup 2=Maximal Assistance 6=Modified [place] 3=Moderate Assistance 7=Complete IndependenceIRFPAI Quality Coding Scale 6 Independent with activity with or without an assistive device 5 Patient requires set up or clean up by helper. Patient completes activity by themselves 4 Supervision or touching assist (CGA). [place] provide cues , steadying assist 3 The helper provides less than half the effort to complete the activity 2 The helper provides more than half the effort to complete the activity 1 Dependent. The helper does all the effort to complete an activity 7 Patient refused to complete or attempt activity 9 The patient did not perform the activity before the current illness or injury 88 Not attempted due to Medical conditions or safety concerns Grooming (FIM): 5 (setup to brush hair) Bathing (FIM): 4 (Washed and dried all parts, with CGA when standing to dry bottom. Shower bench, grab bars, hand held shower, long handled sponge) Upper Body (FIM): 5 (Setup to don t-shirt) Lower Body Dressing (FIM): 5 (Setup, SBA when standing to pull pants up, using grab bar. used dressing stick and sock aid.) Toileting (FIM): 5 (Managed clothing and hygiene, SBA, tall toilet, grab bar) Toilet/Commode Transfer (FIM): 5 (SBA, tall toilet, grab bar, FWW, cues for hand placement) Education OT Patient Education: Modified ADL techniques, Purpose of tx/functional activities, Safety issues, Transfer techniques, Use of adapted equipment Teaching Recipient: Patient Teaching Methods: Demonstration, Discussion Response to Teaching: Verbalize Understanding, Return Demonstration, Reinforcement Needed OT Short Term Goals Short Term Goals Time Frame: Nov 28, 2017 Eating(FIM): 5 Grooming(FIM): 5 Bathing(FIM): 4 Upper Body Dressing(FIM): 5 Lower Body Dressing(FIM): 4 Toileting(FIM): 4 Transfers (B,C,W/C) (FIM): 5 Toilet/Commode Transfer(FIM): 5 Shower Transfer(FIM): 4 Additional Short Term Goals: 1-Demonstrate ADL Tasks, 2-Verbalize Understanding , 3-ImproveStrength/Deborah 1=Demonstrate adherence to instructed precautions during ADL tasks. 2=Patient will verbalize/demonstrate understanding of assistive devices/ modifications for ADL. 3=Patient will improve strength/tolerance for activity to enable patient to perform ADL's. OT Intermediate Goals [place] Goals Time Frame: Dec 12, 2017 Eating (FIM): 6 Eating (QC): 6 Groomin Oral Hygiene (QC): 6 Bathing(FIM): 5 Shower/Bathe Self (QC): 5 Upper Body Dressing(FIM): 5 Upper Body Dressing (QC): 5 Lower Body Dressing(FIM): 5 Lower Body Dressing (QC): 5 On/Off Footwear (QC): 5 Toileting(FIM): 6 Toileting Hygiene (QC): 6 Transfers (B,C,W/C) (FIM): 6 Toilet/Commode Transfer(FIM): 6 Toilet/Commode Transfer (QC): 6 Shower Transfer(FIM): 5 Additional Goals: 1-Demonstrate ADL Tasks, 2-Verbalize Understanding, 3- ImproveStrength/Deborah 1=Demonstrate adherence to instructed precautions during ADL tasks. 2=Patient will verbalize/demonstrate understanding of assistive devices/ modifications for ADL. 3=Patient will improve strength/tolerance for activity to enable patient to perform ADL's. OT Education/Plan Discharge Recommendations Plan/Recommendations: Continue POC Treatment Plan/Plan of Care Patient would benefit from OT for education, treatment and training to promote independence in ADL's, mobility, safety and/or upper extremity function for ADL' s. Plan of Care: ADL Retraining, Functional Mobility, UE Funct Exercise/Act Treatment Duration: Dec 12, 2017 Frequency: At least 5 of 7 days/Wk (IRF) Estimated Hrs Per Day: 1.5 hours per day Agreement: Yes Rehab Potential: Fair Time/GCodes Start Time: 10:00 Stop Time: 10:50 Total Time Billed (hr/min): 50 Billed Treatment Time visit, 50 minutes ADL JOYA DAVALOS OT Nov 24, 2017 13:15
--- NOTE | 2017-11-24 13:25 | Occupational Ther Daily Note ---
OT Current Status-Daily Note Subjective Pt seen in room, seated EOB, agreeable to OT. Pain not mentioned Appearance Alert, cooperative Mental Status/Objective Functional [place] Measure 0=Not Assessed/NA 4=Minimal Assistance 1=Total Assistance 5=Supervision or Setup 2=Maximal Assistance 6=Modified [place] 3=Moderate Assistance 7=Complete [place] ADL-Treatment Functional [place] Measure 0=Not Assessed/NA 4=Minimal Assistance 1=Total Assistance 5=Supervision or Setup 2=Maximal Assistance 6=Modified [place] 3=Moderate Assistance 7=Complete IndependenceIRFPAI Quality Coding Scale 6 Independent with activity with or without an assistive device 5 Patient requires set up or clean up by helper. Patient completes activity by themselves 4 Supervision or touching assist (CGA). [place] provide cues , steadying assist 3 The helper provides less than half the effort to complete the activity 2 The helper provides more than half the effort to complete the activity 1 Dependent. The helper does all the effort to complete an activity 7 Patient refused to complete or attempt activity 9 The patient did not perform the activity before the current illness or injury 88 Not attempted due to Medical conditions or safety concerns Other Treatment Pt got up from EOB with SBA and walked with SBA, FWW to gym, with OT managing O2 tank. Pt got in chair with arms without assist but struggled to get up from chair. She did 15 minutes bilat UE exercise on arm bike, set at 15W resistance , working at steady pace but taking recovery breaks approx every 3 minutes. O2 sats were 96% during breaks. O2 in place. She also did nuts and bots activity with 1# weight on each arm. tremors appeared to interfere a little with activity. Both to strengthen arms to help with sit to stand and ADLs. Pt walked back to room, SBA, FWW, no LOB observed, and got into recliner. Pt left up in recliner, legs elevated, all needs met, O2 in place. Education OT Patient Education: Exercise program, Progress toward Goal/Update tx plan, Purpose of tx/functional activities Teaching Recipient: Patient Teaching Methods: Discussion Response to Teaching: Verbalize Understanding OT Short Term Goals Short Term Goals Time Frame: Nov 28, 2017 Eating(FIM): 5 Grooming(FIM): 5 Bathing(FIM): 4 Upper Body Dressing(FIM): 5 Lower Body Dressing(FIM): 4 Toileting(FIM): 4 Transfers (B,C,W/C) (FIM): 5 Toilet/Commode Transfer(FIM): 5 Shower Transfer(FIM): 4 Additional Short Term Goals: 1-Demonstrate ADL Tasks, 2-Verbalize Understanding , 3-ImproveStrength/Deborah 1=Demonstrate adherence to instructed precautions during ADL tasks. 2=Patient will verbalize/demonstrate understanding of assistive devices/ modifications for ADL. 3=Patient will improve strength/tolerance for activity to enable patient to perform ADL's. OT Color Maker Dyer Goals Color Maker Dyer Goals Time Frame: Dec 12, 2017 Eating (FIM): 6 Eating (QC): 6 Groomin Oral Hygiene (QC): 6 Bathing(FIM): 5 Shower/Bathe Self (QC): 5 Upper Body Dressing(FIM): 5 Upper Body Dressing (QC): 5 Lower Body Dressing(FIM): 5 Lower Body Dressing (QC): 5 On/Off Footwear (QC): 5 Toileting(FIM): 6 Toileting Hygiene (QC): 6 Transfers (B,C,W/C) (FIM): 6 Toilet/Commode Transfer(FIM): 6 Toilet/Commode Transfer (QC): 6 Shower Transfer(FIM): 5 Additional Goals: 1-Demonstrate ADL Tasks, 2-Verbalize Understanding, 3- ImproveStrength/Deborah 1=Demonstrate adherence to instructed precautions during ADL tasks. 2=Patient will verbalize/demonstrate understanding of assistive devices/ modifications for ADL. 3=Patient will improve strength/tolerance for activity to enable patient to perform ADL's. OT Education/Plan Discharge Recommendations Plan/Recommendations: Continue POC Treatment Plan/Plan of Care Patient would benefit from OT for education, treatment and training to promote independence in ADL's, mobility, safety and/or upper extremity function for ADL' s. Plan of Care: ADL Retraining, Functional Mobility, UE Funct Exercise/Act Treatment Duration: Dec 12, 2017 Frequency: At least 5 of 7 days/Wk (IRF) Estimated Hrs Per Day: 1.5 hours per day Agreement: Yes Rehab Potential: Fair Time/GCodes Start Time: 11:00 Stop Time: 11:45 Total Time Billed (hr/min): 45 Billed Treatment Time visit, 45 minutes exercise JOYA DAVALOS OT Nov 24, 2017 13:25
--- NOTE | 2017-11-24 14:41 | Physical Therapy Daily Note ---
PT Daily Note-Current Subjective Patient agrees to PT. Pain Numeric Pain Scale: 7 Location: Left Location Body Site: Thigh Pain Description: Acute Comment: pain medication not available until 1530 per RN Mental Status Patient Orientation: Normal For Age Transfers Functional [place] Measure 0=Not Assessed/NA 4=Minimal Assistance 1=Total Assistance 5=Supervision or Setup 2=Maximal Assistance 6=Modified [place] 3=Moderate Assistance 7=Complete IndependenceIRFPAI Quality Coding Scale 6 Independent with activity with or without an assistive device 5 Patient requires set up or clean up by helper. Patient completes activity by themselves 4 Supervision or touching assist (CGA). [place] provide cues , steadying assist 3 The helper provides less than half the effort to complete the activity 2 The helper provides more than half the effort to complete the activity 1 Dependent. The helper does all the effort to complete an activity 7 Patient refused to complete or attempt activity 9 The patient did not perform the activity before the current illness or injury 88 Not attempted due to Medical conditions or safety concerns Transfers (B, C, W/C) (FIM): 5 Scootin Rollin Roll Left to Right (QC): 5 Supine to/from Sit: 5 Sit to/from Stand: 5 Sit to Lying (QC): 5 Sit to Stand (QC): 5 Chair/Emy-li-Pnnyb Xfer(QC): 5 Bed to/from Chair: 5 Weight Bearing Right Lower Extremity: Right Full Weight Bearing Left Lower Extremity: Left Full Weight Bearing Gait Training Does the Patient Walk?: Yes Gait (FIM): 5 Distance (FIM): 3=150 ft Distance: 175' x 2 Walk 10 feet (QC): 5 Walk 50 ft with 2 Turns(QC): 5 Walk 150 ft (QC): 5 Gait Level of Assist: 5 Gait Assistive Device: FWW slow, steady, functional gait sequence Exercises NuStep Minutes: 15 NuStep Workload: 3 (to increase strength and mobility) Assessment Patient progressing with treatment plan. Continues to c/o left LE pain and reports that heat comforts. PT Short Term Goals Short Term Goals Transfers (B,C,W/C) (FIM): 5 PT Diesel Fleet Mechanic Goals [facility] Goals PT [facility] Goals Time Frame: Dec 01, 2017 Transfers (B,C,W/C) (FIM): 6 Sit to Lying (QC): 6 Lying-Sitting on Side/Bed(QC): 6 Sit to Stand (QC): 6 Rollin Roll Left to Right (QC): 6 Chair/Eiy-qy-Qijxi Xfer(QC): 6 Car Transfer (QC): 6 Does the Patient Walk: Yes Gait (FIM): 6 Gait distance (FIM): 3=150 ft Distance: 200' Walk 10 feet (QC): 6 Walk 10ft-Uneven Surface(QC): 6 Walk 50ft with 2 Turns (QC): 6 Walk 150 ft (QC): 6 Gait Level of Assist: 6 Gait Assistive Device: FWW Stairs (FIM): 2 # of Steps: 4 1 Step (curb) (QC): 5 4 Steps (QC): 5 12 Steps (QC): 9 Stairs Level Of Assist: 5 Picking up an Object (QC): 5 PT Plan Treatment/Plan Treatment Plan: Continue Plan of Care Treatment Plan: Bed Mobility, Education, Functional Activity Deborah, Functional Strength, Group Therapy, Gait, Safety, Therapeutic Exercise, Transfers Treatment Duration: Dec 01, 2017 Frequency: At least 5 of 7 days/Wk (IRF) Estimated Hrs Per Day: 1.5 hours per day Patient and/or Family Agrees t: Yes Time/GCodes Time In: 1405 Time Out: 1436 Total Billed Treatment Time: 31 Total Billed Treatment 1 visit EX 15 min GT 16 min ROSHAN SINGH PT Nov 24, 2017 14:41
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
[2017-11-24 16:33] VITALS: BP 131/77
[2017-11-24] MEDS: FENOFIBRATE 134 MG (LOFIBRA) CAPSULE PO SCH (21:22)
[2017-11-24] MEDS: DOXEPIN 10 MG (SINEquan) CAP PO SCH (21:22)
[2017-11-24] MEDS: PRAZOSIN 1 MG CAPSULE (MINIPRESS) NON-FORMULARY PO SCH (21:23)
[2017-11-24] MEDS: OLANZapine 5 MG (ZyPREXA) TAB PO SCH (21:23)
[2017-11-25 06:14] VITALS: BP 116/72
[2017-11-25] MEDS: PANTOPRAZOLE 20 MG TABLET (PROTONIX) PO SCH (06:22)
[2017-11-25] MEDS: LIPASE/AMYLASE/PROTEASE (PANCRELIPASE) 5,000 UNITS CAP PO SCH ×3 (06:22→16:51)
[2017-11-25] MEDS: HYDROcodone/APAP 10 MG/325 MG (LORTAB) TAB PO PRN ×4 (06:22→20:21)
[2017-11-25] MEDS: OMEGA 3 (FISH OIL) 1000 MG CAP PO SCH ×2 (06:22→16:51)
[2017-11-25] MEDS: HUMALOG KWIKPEN SQ SCH ×6 (06:58→20:24)
[2017-11-25] MEDS: INSULIN DEGLUDEC SQ SCH (06:59)
--- NOTE | 2017-11-25 07:21 | PM & R (SOAP) Progress Note ---
Subjective This was a face to face visit with the patient. Date Seen by Provider: Nov 25, 2017 Time Seen by Provider: 07:00 Subjective/Events-last exam Patient was seen in her room this AM Patient SBA for transfers Slept better no tremulous this AM Objective Physician Exam Last Set of Vital Signs Vital Signs Date Time Temp Pulse Resp B/P (MAP) Pulse Ox O2 Delivery O2 Flow Rate FiO2 11/25/17 06:14 97.2 87 18 116/72 (87) 92 Nasal Cannula 2.00 Capillary Refill : Less Than 3 Seconds I&O Intake and Output 11/25/17 00:00 Intake Total 3140 ml Output Total 6100 ml Balance -2960 ml Intake Oral 3140 ml Output Urine Total 6100 ml General: Alert, Oriented X3, Cooperative, No Acute Distress, Other (mildly anxious) HEENT: Atraumatic, PERRLA, EOMI, Mucous Memb Moist/[place] Neck: Supple, No JVD Lungs: Clear to Auscultation Heart: Regular Rate Abdomen: Normal Bowel Sounds, Soft, No Tenderness Extremities: Other (Trace edeam left ankle) Neuro: Other (Weakness left hip due to injury and guarding Intermittent tremors Decreased sensation to light touch in feet otherwise generalized weakness Anxiety) Results Lab Data Laboratory Tests 11/22/17 11:00: Glucometer 255H 11/22/17 15:45: Glucometer 219H 11/22/17 20:33: 11/23/17 05:09: Glucometer 283H 11/23/17 10:52: Glucometer 286H 11/23/17 15:15: Group A Streptococcus Screen NEGATIVE 11/23/17 16:24: Glucometer 217H 11/24/17 05:32: Glucometer 252H 11/24/17 11:49: Glucometer 237H 11/24/17 16:24: Glucometer 155H 11/24/17 21:18: Glucometer 191H 11/25/17 06:09: Glucometer 245H Microbiology 11/23/17 Throat Culture - Preliminary, Resulted No Beta Strep isolated Assessment/Plan Assessment and Plan Left prox femur fracture s/p IM Nailing ortho 11-16-17 Postop dvt prophylaxis on ASA BOD IDDM Anxiety/depression on med RT Parotid tail mass to have f/u Sore throat resolved Tobaccoism abstaining Diabetic PN Plan Continue PT/OT F/U with DR Roche on Monday11-27-[address] Neck can be done as an outpatient Team Conference 11-29-17 (1) Fracture dislocation of left hip joint Co-Morbidities that are continuing to impact the rehab process: (include details ) RYNE CARPENTER MD Nov 25, 2017 07:21
[2017-11-25] MEDS: RT-ALBUTEROL/IPRATROPIUM 3 ML (DUONEB) VIAL INH SCH ×4 (07:36→21:33)
[2017-11-25] MEDS: RT-ADVAIR HFA 115/21 MCG PER PUFF IH SCH ×2 (07:36→21:33)
[2017-11-25] MEDS: ENALAPRIL 2.5 MG (VASOTEC) TAB PO SCH (08:14)
[2017-11-25] MEDS: NICOTINE PATCH REMOVAL TP SCH (08:14)
[2017-11-25] MEDS: NICOTINE 14 MG (NICODERM) PATCH TD SCH (08:14)
[2017-11-25] MEDS: FLUoxetine HCL 20 MG (PROzac) CAP PO SCH ×2 (08:15→20:21)
[2017-11-25] MEDS: PREGABALIN 75 MG (LYRICA) CAP PO SCH ×3 (08:15→20:22)
[2017-11-25] MEDS ORDERED: MILK OF MAGNESIA 400 MG/5 ML 30 ML UDC PO PRN (08:15)
[2017-11-25] MEDS: ASPIRIN E.C. 81 MG (ECOTRIN) TAB PO SCH ×2 (08:15→20:22)
[2017-11-25] MEDS: FUROSEMIDE 20 MG (LASIX) TAB PO SCH (08:15)
--- NOTE | 2017-11-25 10:46 | Physical Therapy Daily Note ---
PT Daily Note-Current Subjective Patient states she is sweaty. PT asked nursing for blood sugar check. Result 422. Pain Numeric Pain Scale: 5-Moderate Pain Location: Left Location Body Site: Hip Pain Description: Acute Mental Status Patient Orientation: Normal For Age Attachments: Oxygen Transfers Functional [place] Measure 0=Not Assessed/NA 4=Minimal Assistance 1=Total Assistance 5=Supervision or Setup 2=Maximal Assistance 6=Modified [place] 3=Moderate Assistance 7=Complete IndependenceIRFPAI Quality Coding Scale 6 Independent with activity with or without an assistive device 5 Patient requires set up or clean up by helper. Patient completes activity by themselves 4 Supervision or touching assist (CGA). [place] provide cues , steadying assist 3 The helper provides less than half the effort to complete the activity 2 The helper provides more than half the effort to complete the activity 1 Dependent. The helper does all the effort to complete an activity 7 Patient refused to complete or attempt activity 9 The patient did not perform the activity before the current illness or injury 88 Not attempted due to Medical conditions or safety concerns Transfers (B, C, W/C) (FIM): 5 Scootin Supine to/from Sit: 5 Sit to/from Stand: 5 Sit to Lying (QC): 5 Sit to Stand (QC): 5 Chair/Iju-vy-Zwzns Xfer(QC): 5 Bed to/from Chair: 5 Weight Bearing Right Lower Extremity: Right Full Weight Bearing Left Lower Extremity: Left Full Weight Bearing Gait Training Does the Patient Walk?: Yes Gait (FIM): 5 Distance (FIM): 3=150 ft Distance: 225' Walk 10 feet (QC): 5 Walk 50 ft with 2 Turns(QC): 5 Walk 150 ft (QC): 5 Gait Level of Assist: 5 Gait Assistive Device: FWW reciprocal pattern/slightly antalgic Assessment Patient toileted self without difficulty. Due to elevated blood sugar, PT ceased treatment. PT Short Term Goals Short Term Goals Transfers (B,C,W/C) (FIM): 5 PT Furniture Mover Helper Goals Furniture Mover Helper Goals PT Furniture Mover Helper Goals Time Frame: Dec 01, 2017 Transfers (B,C,W/C) (FIM): 6 Sit to Lying (QC): 6 Lying-Sitting on Side/Bed(QC): 6 Sit to Stand (QC): 6 Rollin Roll Left to Right (QC): 6 Chair/Jhy-kt-Bpwcc Xfer(QC): 6 Car Transfer (QC): 6 Does the Patient Walk: Yes Gait (FIM): 6 Gait distance (FIM): 3=150 ft Distance: 200' Walk 10 feet (QC): 6 Walk 10ft-Uneven Surface(QC): 6 Walk 50ft with 2 Turns (QC): 6 Walk 150 ft (QC): 6 Gait Level of Assist: 6 Gait Assistive Device: FWW Stairs (FIM): 2 # of Steps: 4 1 Step (curb) (QC): 5 4 Steps (QC): 5 12 Steps (QC): 9 Stairs Level Of Assist: 5 Picking up an Object (QC): 5 PT Plan Treatment/Plan Treatment Plan: Continue Plan of Care Treatment Plan: Bed Mobility, Education, Functional Activity Deborah, Functional Strength, Group Therapy, Gait, Safety, Therapeutic Exercise, Transfers Treatment Duration: Dec 01, 2017 Frequency: At least 5 of 7 days/Wk (IRF) Estimated Hrs Per Day: 1.5 hours per day Patient and/or Family Agrees t: Yes Time/GCodes Time In: 955 Time Out: 1010 Total Billed Treatment Time: 15 Total Billed Treatment 1 visit GT 15 min ROSHAN SINGH PT Nov 25, 2017 10:46
[2017-11-25] MEDS ORDERED: inSUlin ASPART (NovoLOG) 1 UNIT/0.01 ML (CHARGE PER UNIT) SC SCH (11:45)
--- NOTE | 2017-11-25 11:55 | Progress Note-Hospitalist ---
Subjective HPI/CC On Admission Date Seen by Provider: Nov 25, 2017 Time Seen by Provider: 11:00 Subjective/Events-last exam Patient doing well except blood sugars are very elevated and she had been using her own insulin. That has been reported so dose of been confiscated Blood sugar 422 brings a lot of junk food and has a 2 L bottle of Pepsi at the bedside Patient is very slow to recover BM+ Review of Systems General: Fatigue, Malaise Musculoskeletal: leg pain Objective Exam Vital Signs Vital Signs Date Time Temp Pulse Resp B/P (MAP) Pulse Ox O2 Delivery O2 Flow Rate FiO2 11/25/17 10:42 92 Nasal Cannula 2.00 11/25/17 06:14 97.2 87 18 116/72 (87) Capillary Refill : Less Than 3 Seconds General Appearance: No Apparent Distress, WD/WN, Chronically ill Respiratory: Lungs Clear, Normal Breath Sounds Cardiovascular: Regular Rate, Rhythm, No Edema Neurologic/Psychiatric: Alert, Oriented x3, No Motor/Sensory Deficits, Depressed Affect Results/Procedures Lab Patient resulted labs reviewed. Assessment/Plan Assessment and Plan Assess & Plan/Chief Complaint Assessment: Status post left femur fracture Diabetes mellitus out of control managed by Dr. Gomez at [facility] Non-compliance Plan: SSI per Endo recs Limit sodas and outside food Diagnosis/Problems Diagnosis/Problems (1) Diabetes mellitus Status: Chronic Qualifiers: Diabetes mellitus type: type 2 Diabetes mellitus salvage determiner insulin use: with salvage determiner use Diabetes mellitus complication status: with unspecified complications Qualified Codes: E11.8 - Type 2 diabetes mellitus with unspecified complications; Z79.4 - FDC (current) use of insulin (2) Noncompliance of patient with dietary regimen Status: Chronic (3) Noncompliance with diabetes treatment Status: Chronic (4) Fracture dislocation of left hip joint Status: Acute Qualifiers: Encounter type: subsequent encounter Fracture type: closed Fracture healing: with routine healing Qualified Codes: S72.002D - Fracture of unspecified part of neck of left femur, subsequent encounter for closed fracture with routine healing (5) Diabetic neuropathy Status: Chronic Qualifiers: Diabetes mellitus type: type 2 Diabetes mellitus complication detail: with other neurological complication Qualified Codes: E11.49 - Type 2 diabetes mellitus with other diabetic neurological complication (6) Depression Status: Chronic Qualifiers: Depression Type: major depressive disorder Major depression recurrence: unspecified whether recurrent Active/Remission status: remission status unspecified Qualified Codes: F32.9 - Major depressive disorder, single episode , unspecified (7) Smoker Status: Chronic Clinical Quality Measures DVT/VTE Risk/Contraindication: Risk Factor Score Per Nursin RFS Level Per Nursing on Admit: 4+=Very High KIZZY HUYNH DO Nov 25, 2017 11:55
[2017-11-25] MEDS: ALPRAZolam 0.25 MG (XANAX) TAB PO PRN (16:51)
[2017-11-25 18:37] VITALS: BP 143/68
[2017-11-25 18:39] VITALS: BP 143/68
[2017-11-25] MEDS: PRAZOSIN 1 MG CAPSULE (MINIPRESS) NON-FORMULARY PO SCH (20:20)
[2017-11-25] MEDS: OLANZapine 5 MG (ZyPREXA) TAB PO SCH (20:21)
[2017-11-25] MEDS: FENOFIBRATE 134 MG (LOFIBRA) CAPSULE PO SCH (20:22)
[2017-11-25] MEDS: DOXEPIN 10 MG (SINEquan) CAP PO SCH (20:22)
[2017-11-25] MEDS: SENNA W/DOCUSATE (SENOKOT S) TABLET PO SCH (20:22)
[2017-11-25] MEDS: POLYETHYLENE GLYCOL 17 GM (MIRALAX) PACK PO SCH (20:23)
[2017-11-26] MEDS: HYDROcodone/APAP 10 MG/325 MG (LORTAB) TAB PO PRN ×5 (05:38→22:33)
[2017-11-26 05:45] VITALS: BP 160/72
[2017-11-26] MEDS: OMEGA 3 (FISH OIL) 1000 MG CAP PO SCH ×2 (06:14→17:08)
[2017-11-26] MEDS: LIPASE/AMYLASE/PROTEASE (PANCRELIPASE) 5,000 UNITS CAP PO SCH ×3 (06:14→17:08)
[2017-11-26] MEDS: PANTOPRAZOLE 20 MG TABLET (PROTONIX) PO SCH (06:14)
[2017-11-26] MEDS: INSULIN DEGLUDEC SQ SCH (06:16)
[2017-11-26] MEDS: HUMALOG KWIKPEN SQ SCH ×7 (06:16→20:55)
[2017-11-26] MEDS: RT-ADVAIR HFA 115/21 MCG PER PUFF IH SCH ×2 (06:57→18:38)
[2017-11-26] MEDS: RT-ALBUTEROL/IPRATROPIUM 3 ML (DUONEB) VIAL INH SCH ×4 (06:57→18:37)
[2017-11-26] MEDS: ALPRAZolam 0.25 MG (XANAX) TAB PO PRN ×2 (07:48→17:10)
[2017-11-26] MEDS: PREGABALIN 75 MG (LYRICA) CAP PO SCH ×3 (08:42→21:01)
[2017-11-26] MEDS: FLUoxetine HCL 20 MG (PROzac) CAP PO SCH ×2 (08:42→21:02)
[2017-11-26] MEDS: SENNA W/DOCUSATE (SENOKOT S) TABLET PO SCH ×2 (08:43→21:00)
[2017-11-26] MEDS: NICOTINE 14 MG (NICODERM) PATCH TD SCH (08:43)
[2017-11-26] MEDS: FUROSEMIDE 20 MG (LASIX) TAB PO SCH (08:43)
[2017-11-26] MEDS: ASPIRIN E.C. 81 MG (ECOTRIN) TAB PO SCH ×2 (08:43→20:59)
[2017-11-26] MEDS: ENALAPRIL 2.5 MG (VASOTEC) TAB PO SCH (08:43)
[2017-11-26] MEDS: NICOTINE PATCH REMOVAL TP SCH (08:45)
[2017-11-26] MEDS: DICLOFENAC 1% GEL 100 GM (VOLTAREN) TUBE TOP SCH ×3 (13:20→21:07)
[2017-11-26 18:14] VITALS: BP 132/73
[2017-11-26] MEDS: PRAZOSIN 1 MG CAPSULE (MINIPRESS) NON-FORMULARY PO SCH (20:57)
[2017-11-26] MEDS: POLYETHYLENE GLYCOL 17 GM (MIRALAX) PACK PO SCH (21:00)
[2017-11-26] MEDS: OLANZapine 5 MG (ZyPREXA) TAB PO SCH (21:00)
[2017-11-26] MEDS: FENOFIBRATE 134 MG (LOFIBRA) CAPSULE PO SCH (21:01)
[2017-11-26] MEDS: DOXEPIN 10 MG (SINEquan) CAP PO SCH (21:02)
[2017-11-27] MEDS: HYDROcodone/APAP 10 MG/325 MG (LORTAB) TAB PO PRN ×5 (05:53→22:29)
[2017-11-27 06:00] VITALS: BP 110/54
[2017-11-27] MEDS: HUMALOG KWIKPEN SQ SCH ×7 (06:00→20:59)
[2017-11-27] MEDS: PANTOPRAZOLE 20 MG TABLET (PROTONIX) PO SCH (06:55)
[2017-11-27] MEDS: OMEGA 3 (FISH OIL) 1000 MG CAP PO SCH ×2 (06:55→17:40)
[2017-11-27] MEDS: LIPASE/AMYLASE/PROTEASE (PANCRELIPASE) 5,000 UNITS CAP PO SCH ×3 (06:55→17:40)
[2017-11-27] MEDS: RT-ALBUTEROL/IPRATROPIUM 3 ML (DUONEB) VIAL INH SCH ×3 (07:58→19:45)
[2017-11-27] MEDS: RT-ADVAIR HFA 115/21 MCG PER PUFF IH SCH ×2 (07:59→19:45)
--- NOTE | 2017-11-27 08:06 | Progress Note (SOAP) ---
Subjective Time Seen by Provider: 08:00 Subjective/Events-last exam Patient breathing better. Patient complaining of pains. Patient physically improving Objective Exam Vital Signs Date Time Temp Pulse Resp B/P (MAP) Pulse Ox O2 Delivery O2 Flow Rate FiO2 11/27/17 06:00 97.3 75 20 110/54 (72) 94 Nasal Cannula 2.50 11/26/17 21:00 Nasal Cannula 2.50 11/26/17 18:43 99 Nasal Cannula 2.00 11/26/17 18:38 96 Nasal Cannula 2.00 11/26/17 18:14 99.0 79 18 132/73 (92) 99 Nasal Cannula 11/26/17 15:06 95 Nasal Cannula 2.00 11/26/17 10:18 94 Nasal Cannula 2.00 11/26/17 09:33 Nasal Cannula 2.50 I & O 11/27/17 07:00 Intake Total 4600 ml Output Total 9000 ml Balance -4400 ml Capillary Refill : Less Than 3 Seconds General Appearance: No Apparent Distress, WD/WN HEENT: Normal ENT Inspection Neck: Full Range of Motion Respiratory: Lungs Clear, No Accessory Muscle Use, No Respiratory Distress, Decreased Breath Sounds Cardiovascular: Regular Rate, Rhythm, No Murmur Results Lab Laboratory Tests 11/26/17 10:58: Glucometer 262H 11/26/17 16:31: Glucometer 202H 11/26/17 20:24: Glucometer 183H 11/27/17 05:55: Glucometer 127H Microbiology 11/23/17 Throat Culture - Final, Complete No Beta Strep isolated Assessment/Plan Assessment/Plan Assess & Plan/Chief Complaint Left femur fracture. FALL Diabetes. COPD.. . 11/22/17. Left femur fracture. Fall. COPD. Diabetes. . 11/23/17. Left femur fracture. FALL. COPD. Diabetes. Lymph node in right side of the neck to be evaluated by ENT. . 11/24/17 left femur fracture. fall COPD. To evaluate mass in right side of neck. Plan 11/27/17. Left femur fracture. COPD. fall. Patient breathing better. Patient complaining of pain. Patient seen by [facility] area Marijuana usage Clinical Quality Measures DVT/VTE Risk/Contraindication: Risk Factor Score Per Nursin RFS Level Per Nursing on Admit: 4+=Very High BLAIRE DIXON DO Nov 27, 2017 08:06
[2017-11-27] MEDS: ENALAPRIL 2.5 MG (VASOTEC) TAB PO SCH (08:56)
[2017-11-27] MEDS: FUROSEMIDE 20 MG (LASIX) TAB PO SCH (08:56)
[2017-11-27] MEDS: PREGABALIN 75 MG (LYRICA) CAP PO SCH ×3 (08:57→20:47)
[2017-11-27] MEDS: FLUoxetine HCL 20 MG (PROzac) CAP PO SCH ×2 (08:57→20:48)
[2017-11-27] MEDS: ASPIRIN E.C. 81 MG (ECOTRIN) TAB PO SCH ×2 (08:57→20:48)
[2017-11-27] MEDS: NICOTINE 14 MG (NICODERM) PATCH TD SCH (08:58)
[2017-11-27] MEDS: NICOTINE PATCH REMOVAL TP SCH (08:58)
[2017-11-27] MEDS: SENNA W/DOCUSATE (SENOKOT S) TABLET PO SCH ×2 (09:08→20:49)
--- NOTE | 2017-11-27 09:08 | Physical Therapy Daily Note ---
PT Daily Note-Current Subjective Patient in bed pre tx, agrees to PT, has 9/10 pain, nurse notified. Appearance Patient in recliner post tx with nurse call, phone, tray, all needs met. Mental Status Patient Orientation: Person, Place, Situation Attachments: Oxygen Transfers Functional [place] Measure 0=Not Assessed/NA 4=Minimal Assistance 1=Total Assistance 5=Supervision or Setup 2=Maximal Assistance 6=Modified [place] 3=Moderate Assistance 7=Complete IndependenceIRFPAI Quality Coding Scale 6 Independent with activity with or without an assistive device 5 Patient requires set up or clean up by helper. Patient completes activity by themselves 4 Supervision or touching assist (CGA). [place] provide cues , steadying assist 3 The helper provides less than half the effort to complete the activity 2 The helper provides more than half the effort to complete the activity 1 Dependent. The helper does all the effort to complete an activity 7 Patient refused to complete or attempt activity 9 The patient did not perform the activity before the current illness or injury 88 Not attempted due to Medical conditions or safety concerns Transfers (B, C, W/C) (FIM): 5 Scootin Rollin Supine to/from Sit: 5 Sit to/from Stand: 5 Bed to/from Chair: 5 Weight Bearing Right Lower Extremity: Right Full Weight Bearing Left Lower Extremity: Left Full Weight Bearing Gait Training Gait (FIM): 5 Distance: 150', 100' Gait Level of Assist: 5 Gait Persons Needed: 1 Gait Assistive Device: FWW slow, antalgic Exercises Standing: Heel/toe raises, 3 way Ex=Flex, Abd, Ext (not extension), Marching NuStep Minutes: 15 NuStep Workload: 4 Treatments bed mobility, transfers, ambulation, functional strengthening, patient was also toileted once and she was able to get her pants down and up without assist Assessment Current Status: Fair Progress improving bed mobility and transfers. PT Short Term Goals Short Term Goals Transfers (B,C,W/C) (FIM): 5 PT Longterm Goals International Marketing Specialist Goals PT International Marketing Specialist Goals Time Frame: Dec 01, 2017 Transfers (B,C,W/C) (FIM): 6 Sit to Lying (QC): 6 Lying-Sitting on Side/Bed(QC): 6 Sit to Stand (QC): 6 Rollin Roll Left to Right (QC): 6 Chair/Xbv-wa-Muagv Xfer(QC): 6 Car Transfer (QC): 6 Does the Patient Walk: Yes Gait (FIM): 6 Gait distance (FIM): 3=150 ft Distance: 200' Walk 10 feet (QC): 6 Walk 10ft-Uneven Surface(QC): 6 Walk 50ft with 2 Turns (QC): 6 Walk 150 ft (QC): 6 Gait Level of Assist: 6 Gait Assistive Device: FWW Stairs (FIM): 2 # of Steps: 4 1 Step (curb) (QC): 5 4 Steps (QC): 5 12 Steps (QC): 9 Stairs Level Of Assist: 5 Picking up an Object (QC): 5 PT Plan Problem List Problem List: Activity Tolerance, Functional Strength, Safety, Balance, Gait, Transfer, Bed Mobility, ROM Treatment/Plan Treatment Plan: Continue Plan of Care Treatment Plan: Bed Mobility, Education, Functional Activity Deborah, Functional Strength, Group Therapy, Gait, Safety, Therapeutic Exercise, Transfers Treatment Duration: Dec 01, 2017 Frequency: At least 5 of 7 days/Wk (IRF) Estimated Hrs Per Day: 1.5 hours per day Patient and/or Family Agrees t: Yes Safety Risks/Education Patient Education: Gait Training, Transfer Techniques, Correct Positioning, Safety Issues Teaching Recipient: Patient Teaching Methods: Demonstration, Discussion Response to Teaching: Reinforcement Needed Time/GCodes Time In: 0800 Time Out: 0900 Total Billed Treatment Time: 60 Total Billed Treatment 1 visit FA 10' GT 20' EX 30' ADALGISA YEBOAH PT Nov 27, 2017 09:08
[2017-11-27] MEDS: INSULIN DEGLUDEC SQ SCH (09:12)
[2017-11-27] MEDS: DICLOFENAC 1% GEL 100 GM (VOLTAREN) TUBE TOP SCH ×4 (09:19→20:57)
--- NOTE | 2017-11-27 11:28 | Occupational Ther Daily Note ---
OT Current Status-Daily Note Subjective Pt. reports 10/10 pain. Declines showering stating that her "leg can't take it. " OT encourages pt. and reminds her that she will be sitting in shower. Pt. still declines. Nursing brings pt. pain pill. At end of session, pt. began shaking. States that she is starting a "panic attack" and asks for a xanax. Nursing notified. Appearance Pt. is up in chair. Pt. is dressed and agrees to work with OT. Mental Status/Objective Patient Orientation: Person, Place, Time, Situation Functional [place] Measure 0=Not Assessed/NA 4=Minimal Assistance 1=Total Assistance 5=Supervision or Setup 2=Maximal Assistance 6=Modified [place] 3=Moderate Assistance 7=Complete [place] ADL-Treatment Functional [place] Measure 0=Not Assessed/NA 4=Minimal Assistance 1=Total Assistance 5=Supervision or Setup 2=Maximal Assistance 6=Modified [place] 3=Moderate Assistance 7=Complete IndependenceIRFPAI Quality Coding Scale 6 Independent with activity with or without an assistive device 5 Patient requires set up or clean up by helper. Patient completes activity by themselves 4 Supervision or touching assist (CGA). [place] provide cues , steadying assist 3 The helper provides less than half the effort to complete the activity 2 The helper provides more than half the effort to complete the activity 1 Dependent. The helper does all the effort to complete an activity 7 Patient refused to complete or attempt activity 9 The patient did not perform the activity before the current illness or injury 88 Not attempted due to Medical conditions or safety concerns Toileting (FIM): 5 (SBA to toilet self.) Toileting Hygiene (QC): 5 Transfers (B, C, W/C) (FIM): 5 (Pt. is able to ambulate to therapy gym and back several times. Does require several rest breaks.) Toilet/Commode Transfer (FIM): 5 Toilet Transfer (QC): 4 Other Treatment Pt. ambulated to therapy gym with SBA. Did require several rest breaks. Completed 15 minutes with multiple rest breaks at min resistance on armbike. Completed this to increase overall strength and independence. Pt. then donned 1 lb. wrist weights and completed card game to increase overall strength and independence. Tolerated treatment well. Did require one rest break and had to ambulate to the bathroom. At one point, OT donned heat pack to leg due to muscle spasms. After all work in gym, ambulated back to room and all needs met. Education OT Patient Education: Correct positioning, Exercise program, Modified ADL techniques, Progress toward Goal/Update tx plan, Purpose of tx/functional activities, Reviewed precautions, Rehab process, Transfer techniques Teaching Recipient: Patient Teaching Methods: Demonstration, Discussion Response to Teaching: Verbalize Understanding, Return Demonstration OT Short Term Goals Short Term Goals Time Frame: Nov 28, 2017 Eating(FIM): 5 Grooming(FIM): 5 Bathing(FIM): 4 Upper Body Dressing(FIM): 5 Lower Body Dressing(FIM): 4 Toileting(FIM): 4 Transfers (B,C,W/C) (FIM): 5 Toilet/Commode Transfer(FIM): 5 Shower Transfer(FIM): 4 Additional Short Term Goals: 1-Demonstrate ADL Tasks, 2-Verbalize Understanding , 3-ImproveStrength/Deborah 1=Demonstrate adherence to instructed precautions during ADL tasks. 2=Patient will verbalize/demonstrate understanding of assistive devices/ modifications for ADL. 3=Patient will improve strength/tolerance for activity to enable patient to perform ADL's. OT Residential Goals Instrumentation Fitter Goals Time Frame: Dec 12, 2017 Eating (FIM): 6 Eating (QC): 6 Groomin Oral Hygiene (QC): 6 Bathing(FIM): 5 Shower/Bathe Self (QC): 5 Upper Body Dressing(FIM): 5 Upper Body Dressing (QC): 5 Lower Body Dressing(FIM): 5 Lower Body Dressing (QC): 5 On/Off Footwear (QC): 5 Toileting(FIM): 6 Toileting Hygiene (QC): 6 Transfers (B,C,W/C) (FIM): 6 Toilet/Commode Transfer(FIM): 6 Toilet/Commode Transfer (QC): 6 Shower Transfer(FIM): 5 Additional Goals: 1-Demonstrate ADL Tasks, 2-Verbalize Understanding, 3- ImproveStrength/Deborah 1=Demonstrate adherence to instructed precautions during ADL tasks. 2=Patient will verbalize/demonstrate understanding of assistive devices/ modifications for ADL. 3=Patient will improve strength/tolerance for activity to enable patient to perform ADL's. OT Education/Plan Problem List/Assessment Assessment: Decreased Activ Tolerance, Dependent Transfers, Impaired I ADL's, Impaired Self-Care Skills Discharge Recommendations Plan/Recommendations: Continue POC Therapy D/C Recommendations: Home w/ Family Support, Occupational Therapy Home Care Treatment Plan/Plan of Care Treatment,Training & Education: Yes Patient would benefit from OT for education, treatment and training to promote independence in ADL's, mobility, safety and/or upper extremity function for ADL' s. Plan of Care: ADL Retraining, Functional Mobility, UE Funct Exercise/Act Treatment Duration: Dec 12, 2017 Frequency: At least 5 of 7 days/Wk (IRF) Estimated Hrs Per Day: 1.5 hours per day Agreement: Yes Rehab Potential: Fair Time/GCodes Start Time: 09:50 Stop Time: 11:20 Total Time Billed (hr/min): 90 Billed Treatment Time 1, Ex x 45minutes, ADL x 15minutes, FA x 30minutes JOSE GUADALUPE BONILLA OT Nov 27, 2017 11:27
[2017-11-27] MEDS: ALPRAZolam 0.25 MG (XANAX) TAB PO PRN (12:07)
--- NOTE | 2017-11-27 13:39 | PM & R (SOAP) Progress Note ---
Subjective This was a face to face visit with the patient. Date Seen by Provider: Nov 27, 2017 Time Seen by Provider: 11:45 Subjective/Events-last exam Patient was seen in her room this AM Case discuused with RN this past weekend Accuchek quite high.Patient was using her own Insulin pen from home patient counseled re this [place] noted.Patient SBA for transfers Patient asks about discharge date Informed her that date is set for 11-30-17 Objective Physician Exam Last Set of Vital Signs Vital Signs Date Time Temp Pulse Resp B/P (MAP) Pulse Ox O2 Delivery O2 Flow Rate FiO2 11/27/17 08:35 Nasal Cannula 2.50 11/27/17 07:59 96 11/27/17 06:00 97.3 75 20 110/54 (72) Capillary Refill : Less Than 3 Seconds I&O Intake and Output 11/27/17 00:00 Intake Total 3900 ml Output Total 6000 ml Balance -2100 ml Intake Oral 3900 ml Output Urine Total 6000 ml # Bowel Movements 3 General: Alert, Oriented X3, Cooperative, No Acute Distress, Other (mildly anxious) HEENT: Atraumatic, PERRLA, EOMI, Mucous Memb Moist/[place] Neck: Supple, No JVD Lungs: Clear to Auscultation Heart: Regular Rate Abdomen: Normal Bowel Sounds, Soft, No Tenderness Extremities: Other (Trace edeam left ankle) Neuro: Other (Weakness left hip due to injury and guarding Intermittent tremors Decreased sensation to light touch in feet otherwise generalized weakness Anxiety) Results Lab Data Laboratory Tests 11/24/17 16:24: Glucometer 155H 11/24/17 21:18: Glucometer 191H 11/25/17 06:09: Glucometer 245H 11/25/17 10:03: Glucometer 422*H 11/25/17 11:42: Glucometer 343H 11/25/17 16:02: Glucometer 224H 11/25/17 20:17: Glucometer 113H 11/26/17 05:35: Glucometer 196H 11/26/17 10:58: Glucometer 262H 11/26/17 16:31: Glucometer 202H 11/26/17 20:24: Glucometer 183H 11/27/17 05:55: Glucometer 127H 11/27/17 10:50: Glucometer 276H Microbiology 11/23/17 Throat Culture - Final, Complete No Beta Strep isolated Assessment/Plan Assessment and Plan Left Prox femur fracture s/p IM nailing ortho 11/16/18 Postop DVT prophylaxis on ASA BID IDDM meds adjusted for poor control Anxiety/depression on meds RT Parotid tail mass to have eval as an outpatient Sore throat resolved with negaitive Strep screen Tobaccoism abstaining Diabetic PN Plan Continue PT/OT Team Conference 11-29-17 Discharge remains tentatively set for 11-30-17 to home with spouse Will confirm with SW (1) Fracture dislocation of left hip joint Qualifiers: Qualified Codes: S72.002D - Fracture of unspecified part of neck of left femur, subsequent encounter for closed fracture with routine healing Status: Acute Co-Morbidities that are continuing to impact the rehab process: (include details ) RYNE CARPENTER MD Nov 27, 2017 13:39
--- NOTE | 2017-11-27 15:02 | Physical Therapy Daily Note ---
PT Daily Note-Current Subjective Patient agrees to PT. Pain Numeric Pain Scale: 5-Moderate Pain Location: Left Location Body Site: Hip Pain Description: Acute Mental Status Patient Orientation: Normal For Age Attachments: Oxygen Transfers Functional [place] Measure 0=Not Assessed/NA 4=Minimal Assistance 1=Total Assistance 5=Supervision or Setup 2=Maximal Assistance 6=Modified [place] 3=Moderate Assistance 7=Complete IndependenceIRFPAI Quality Coding Scale 6 Independent with activity with or without an assistive device 5 Patient requires set up or clean up by helper. Patient completes activity by themselves 4 Supervision or touching assist (CGA). [place] provide cues , steadying assist 3 The helper provides less than half the effort to complete the activity 2 The helper provides more than half the effort to complete the activity 1 Dependent. The helper does all the effort to complete an activity 7 Patient refused to complete or attempt activity 9 The patient did not perform the activity before the current illness or injury 88 Not attempted due to Medical conditions or safety concerns Transfers (B, C, W/C) (FIM): 6 Scootin Rollin Roll Left to Right (QC): 6 Supine to/from Sit: 6 Sit to/from Stand: 6 Sit to Lying (QC): 6 Sit to Stand (QC): 6 Chair/Yix-rl-Mpqzw Xfer(QC): 6 Bed to/from Chair: 6 Car Transfer (QC): 6 Weight Bearing Right Lower Extremity: Right Full Weight Bearing Left Lower Extremity: Left Full Weight Bearing Gait Training Does the Patient Walk?: Yes Gait (FIM): 5 Distance (FIM): 3=150 ft Distance: 175' x 2 Walk 10 feet (QC): 5 Walk 50 ft with 2 Turns(QC): 5 Walk 150 ft (QC): 5 Gait Level of Assist: 5 Gait Assistive Device: Walker Standard slow, antalgic, step to gait sequence Exercises NuStep Minutes: 15 NuStep Workload: 4 (to increase strength and mobility) Assessment Patient is progressing with treatment plan. Beginning 11/28/17, patient is to be up ad staci, if spouse is in room, during day only, to ensure safe and functional return to home. RN notified. PT Short Term Goals Short Term Goals Transfers (B,C,W/C) (FIM): 5 PT [facility] Goals Customer Development Manager Goals PT Customer Development Manager Goals Time Frame: Dec 01, 2017 Transfers (B,C,W/C) (FIM): 6 Sit to Lying (QC): 6 Lying-Sitting on Side/Bed(QC): 6 Sit to Stand (QC): 6 Rollin Roll Left to Right (QC): 6 Chair/[id number]-Jvzfd Xfer(QC): 6 Car Transfer (QC): 6 Does the Patient Walk: Yes Gait (FIM): 6 Gait distance (FIM): 3=150 ft Distance: 200' Walk 10 feet (QC): 6 Walk 10ft-Uneven Surface(QC): 6 Walk 50ft with 2 Turns (QC): 6 Walk 150 ft (QC): 6 Gait Level of Assist: 6 Gait Assistive Device: FWW Stairs (FIM): 2 # of Steps: 4 1 Step (curb) (QC): 5 4 Steps (QC): 5 12 Steps (QC): 9 Stairs Level Of Assist: 5 Picking up an Object (QC): 5 PT Plan Treatment/Plan Treatment Plan: Continue Plan of Care Treatment Plan: Bed Mobility, Education, Functional Activity Deborah, Functional Strength, Group Therapy, Gait, Safety, Therapeutic Exercise, Transfers Treatment Duration: Dec 01, 2017 Frequency: At least 5 of 7 days/Wk (IRF) Estimated Hrs Per Day: 1.5 hours per day Patient and/or Family Agrees t: Yes Time/GCodes Time In: 1420 Time Out: 1451 Total Billed Treatment Time: 31 Total Billed Treatment 1 visit GT 16 min EX 15 min ROSHAN SINGH PT Nov 27, 2017 15:02
[2017-11-27 16:20] VITALS: BP 113/58
[2017-11-27] MEDS: CYCLOBENZAPRINE 10 MG (FLEXERIL) TAB PO PRN (20:04)
[2017-11-27] MEDS: DOXEPIN 10 MG (SINEquan) CAP PO SCH (20:48)
[2017-11-27] MEDS: FENOFIBRATE 134 MG (LOFIBRA) CAPSULE PO SCH (20:48)
[2017-11-27] MEDS: OLANZapine 5 MG (ZyPREXA) TAB PO SCH (20:49)
[2017-11-27] MEDS: POLYETHYLENE GLYCOL 17 GM (MIRALAX) PACK PO SCH (20:49)
[2017-11-27] MEDS: PRAZOSIN 1 MG CAPSULE (MINIPRESS) NON-FORMULARY PO SCH (20:51)
[2017-11-28] MEDS: HYDROcodone/APAP 10 MG/325 MG (LORTAB) TAB PO PRN ×5 (03:53→22:38)
[2017-11-28 05:03] VITALS: BP 121/65
[2017-11-28] MEDS: OMEGA 3 (FISH OIL) 1000 MG CAP PO SCH ×2 (06:29→16:26)
[2017-11-28] MEDS: LIPASE/AMYLASE/PROTEASE (PANCRELIPASE) 5,000 UNITS CAP PO SCH ×3 (06:29→16:26)
[2017-11-28] MEDS: PANTOPRAZOLE 20 MG TABLET (PROTONIX) PO SCH (06:29)
[2017-11-28] MEDS: HUMALOG KWIKPEN SQ SCH ×7 (06:30→20:38)
[2017-11-28] MEDS: CYCLOBENZAPRINE 10 MG (FLEXERIL) TAB PO PRN ×3 (06:52→20:36)
[2017-11-28] MEDS: RT-ALBUTEROL/IPRATROPIUM 3 ML (DUONEB) VIAL INH SCH ×4 (07:01→19:19)
[2017-11-28] MEDS: RT-ADVAIR HFA 115/21 MCG PER PUFF IH SCH ×2 (07:02→19:19)
--- NOTE | 2017-11-28 08:23 | Progress Note (SOAP) ---
Subjective Time Seen by Provider: 08:20 Subjective/Events-last exam Patient feeling better today. Patient voices no complaints. Left femur fracture. Diabetes. Objective Exam Vital Signs Date Time Temp Pulse Resp B/P (MAP) Pulse Ox O2 Delivery O2 Flow Rate FiO2 11/28/17 07:01 93 Nasal Cannula 2.00 11/28/17 05:03 97.8 86 16 121/65 (83) 95 Nasal Cannula 2.00 11/27/17 21:28 Nasal Cannula 2.50 11/27/17 19:46 95 Nasal Cannula 2.00 11/27/17 16:20 98.8 79 16 113/58 (76) 95 Nasal Cannula 2.00 11/27/17 08:35 Nasal Cannula 2.50 I & O 11/28/17 07:00 Intake Total 4880 ml Output Total 6400 ml Balance -1520 ml Capillary Refill : Less Than 3 Seconds General Appearance: No Apparent Distress, WD/WN Results Lab Laboratory Tests 11/27/17 10:50: Glucometer 276H 11/27/17 16:02: Glucometer 317H 11/27/17 20:11: Glucometer 334H 11/28/17 04:08: Glucometer 173H Microbiology 11/23/17 Throat Culture - Final, Complete No Beta Strep isolated Assessment/Plan Assessment/Plan Assess & Plan/Chief Complaint Left femur fracture. FALL Diabetes. COPD.. . 11/22/17. Left femur fracture. Fall. COPD. Diabetes. . 11/23/17. Left femur fracture. FALL. COPD. Diabetes. Lymph node in right side of the neck to be evaluated by ENT. . 11/24/17 left femur fracture. fall COPD. To evaluate mass in right side of neck. Plan 11/27/17. Left femur fracture. COPD. fall. Patient breathing better. Patient complaining of pain. Patient seen by mental health area Marijuana usage. . 11/28/17. Left femur fracture. COPD. fall. Patient not complaining of pain this a.m. Clinical Quality Measures DVT/VTE Risk/Contraindication: Risk Factor Score Per Nursin RFS Level Per Nursing on Admit: 4+=Very High BLAIRE DIXON DO Nov 28, 2017 08:23
[2017-11-28] MEDS: PREGABALIN 75 MG (LYRICA) CAP PO SCH ×3 (09:29→20:36)
[2017-11-28] MEDS: FLUoxetine HCL 20 MG (PROzac) CAP PO SCH ×2 (09:30→20:36)
[2017-11-28] MEDS: ENALAPRIL 2.5 MG (VASOTEC) TAB PO SCH (09:30)
[2017-11-28] MEDS: FUROSEMIDE 20 MG (LASIX) TAB PO SCH (09:30)
[2017-11-28] MEDS: NICOTINE 14 MG (NICODERM) PATCH TD SCH (09:30)
[2017-11-28] MEDS: ASPIRIN E.C. 81 MG (ECOTRIN) TAB PO SCH ×2 (09:31→20:37)
[2017-11-28] MEDS: SENNA W/DOCUSATE (SENOKOT S) TABLET PO SCH ×2 (09:31→20:38)
[2017-11-28] MEDS: NICOTINE PATCH REMOVAL TP SCH (09:31)
[2017-11-28] MEDS: DICLOFENAC 1% GEL 100 GM (VOLTAREN) TUBE TOP SCH ×4 (09:37→20:39)
[2017-11-28] MEDS: INSULIN DEGLUDEC SQ SCH (09:38)
--- NOTE | 2017-11-28 11:43 | Physical Therapy Daily Note ---
PT Daily Note-Current Subjective Pt sitting in recliner asleep upon arrival. Pt agrees to PT and reports discharging . Pain Numeric Pain Scale: 9 Location: Right, Lower Location Body Site: Back Pain Description: Ache Comment: Pt reports pain in Low back, RLE but pain rated doesn't match visual. Mental Status Patient Orientation: Person, Place Transfers Functional [place] Measure 0=Not Assessed/NA 4=Minimal Assistance 1=Total Assistance 5=Supervision or Setup 2=Maximal Assistance 6=Modified [place] 3=Moderate Assistance 7=Complete IndependenceIRFPAI Quality Coding Scale 6 Independent with activity with or without an assistive device 5 Patient requires set up or clean up by helper. Patient completes activity by themselves 4 Supervision or touching assist (CGA). [place] provide cues , steadying assist 3 The helper provides less than half the effort to complete the activity 2 The helper provides more than half the effort to complete the activity 1 Dependent. The helper does all the effort to complete an activity 7 Patient refused to complete or attempt activity 9 The patient did not perform the activity before the current illness or injury 88 Not attempted due to Medical conditions or safety concerns Scootin Sit to/from Stand: 5 Sit to Stand (QC): 5 Weight Bearing Right Lower Extremity: Right Full Weight Bearing Left Lower Extremity: Left Full Weight Bearing Gait Training Does the Patient Walk?: Yes Distance (FIM): 3=150 ft Distance: 150' Walk 10 feet (QC): 5 Walk 50 ft with 2 Turns(QC): 5 Walk 150 ft (QC): 5 Gait Level of Assist: 5 Gait Persons Needed: 1 Gait Assistive Device: FWW Pt walks with a slow, slouched posture. Pt fatigues easy & gets SOA. Wheelchair Training Does the Pt Use a Wheelchair?: No Exercises Seated Therapy Exercises: Ankle pumps, Long arc quads, Hip flexion, Kicking activity NuStep Minutes: 5 NuStep Workload: 3 Treatments Pt transfers from recliner to standing using FWW at A. Pt uses NuStep for 5m before needing to return to room to use restroom. Pt uses restroom then Pt ambulates in hallway & completes Seated Ex in chair before having to return to restroom. Pt resting in recliner at end of tx., all needs met including call light. Assessment Current Status: Good Progress Pt reports having to use restroom more frequently over the last "a day or two". PT Short Term Goals Short Term Goals Transfers (B,C,W/C) (FIM): 5 PT Spark Plug Assembler Goals Half-Way Goals PT Half-Way Goals Time Frame: Dec 01, 2017 Transfers (B,C,W/C) (FIM): 6 Sit to Lying (QC): 6 Lying-Sitting on Side/Bed(QC): 6 Sit to Stand (QC): 6 Rollin Roll Left to Right (QC): 6 Chair/Lbb-qg-Ebyja Xfer(QC): 6 Car Transfer (QC): 6 Does the Patient Walk: Yes Gait (FIM): 6 Gait distance (FIM): 3=150 ft Distance: 200' Walk 10 feet (QC): 6 Walk 10ft-Uneven Surface(QC): 6 Walk 50ft with 2 Turns (QC): 6 Walk 150 ft (QC): 6 Gait Level of Assist: 6 Gait Assistive Device: FWW Stairs (FIM): 2 # of Steps: 4 1 Step (curb) (QC): 5 4 Steps (QC): 5 12 Steps (QC): 9 Stairs Level Of Assist: 5 Picking up an Object (QC): 5 PT Plan Problem List Problem List: Activity Tolerance, Functional Strength, Safety, Gait Treatment/Plan Treatment Plan: Continue Plan of Care Treatment Plan: Bed Mobility, Education, Functional Activity Deborah, Functional Strength, Group Therapy, Gait, Safety, Therapeutic Exercise, Transfers Treatment Duration: Dec 01, 2017 Frequency: At least 5 of 7 days/Wk (IRF) Estimated Hrs Per Day: 1.5 hours per day Patient and/or Family Agrees t: Yes Safety Risks/Education Patient Education: Gait Training, Transfer Techniques, Correct Positioning, Safety Issues Teaching Recipient: Patient Teaching Methods: Discussion Response to Teaching: Verbalize Understanding Time/GCodes Time In: 900 Time Out: 1000 Total Billed Treatment Time: 60 Total Billed Treatment 1, FA x2 (30m), GT (15m) & EX (15m) G Codes Necessary: LOULOU Pa CORPORATE QUALITY ASSURANCE MANAGER Nov 28, 2017 11:43
--- NOTE | 2017-11-28 11:52 | Occupational Ther Daily Note ---
OT Current Status-Daily Note Subjective Pt. reports having a muscle spasm in left thigh. Nursing gets her a muscle relaxor. Appearance Pt. is up in chair. Agrees to shower. Mental Status/Objective Patient Orientation: Person, Place, Time Functional [place] Measure 0=Not Assessed/NA 4=Minimal Assistance 1=Total Assistance 5=Supervision or Setup 2=Maximal Assistance 6=Modified [place] 3=Moderate Assistance 7=Complete [place] Attachments: Oxygen ADL-Treatment Functional [place] Measure 0=Not Assessed/NA 4=Minimal Assistance 1=Total Assistance 5=Supervision or Setup 2=Maximal Assistance 6=Modified [place] 3=Moderate Assistance 7=Complete IndependenceIRFPAI Quality Coding Scale 6 Independent with activity with or without an assistive device 5 Patient requires set up or clean up by helper. Patient completes activity by themselves 4 Supervision or touching assist (CGA). [place] provide cues , steadying assist 3 The helper provides less than half the effort to complete the activity 2 The helper provides more than half the effort to complete the activity 1 Dependent. The helper does all the effort to complete an activity 7 Patient refused to complete or attempt activity 9 The patient did not perform the activity before the current illness or injury 88 Not attempted due to Medical conditions or safety concerns Grooming (FIM): 5 (Set up to brush hair.) Bathing (FIM): 5 (SBA in shower to complete all tasks.) Shower/Bathe Self (QC): 4 Upper Body (FIM): 5 Upper Body Dressing (QC): 4 Lower Body Dressing (FIM): 4 (Min assist to don left sock with equipment. Uses dressing stick to don brief and pants with SBA.) Lower Body Dressing (QC): 4 On/Off Footwear (QC): 4 Toileting (FIM): 5 Toileting Hygiene (QC): 5 Transfers (B, C, W/C) (FIM): 5 Toilet/Commode Transfer (FIM): 5 Toilet Transfer (QC): 4 Shower Transfer(FIM): 5 Other Treatment After ADLs, pt. ambulated to therapy gym and completed 15 minutes on armbike at mod resistance. Tolerated this well. All needs met. Rested several timed during transition back to room. Transferred back to chair. Pt. ordering food when left room. Education OT Patient Education: Correct positioning, Exercise program, Modified ADL techniques, Progress toward Goal/Update tx plan, Purpose of tx/functional activities, Reviewed precautions, Rehab process, Transfer techniques Teaching Recipient: Patient Teaching Methods: Demonstration, Discussion Response to Teaching: Verbalize Understanding, Return Demonstration OT Short Term Goals Short Term Goals Time Frame: Nov 28, 2017 Eating(FIM): 5 Grooming(FIM): 5 Bathing(FIM): 4 Upper Body Dressing(FIM): 5 Lower Body Dressing(FIM): 4 Toileting(FIM): 4 Transfers (B,C,W/C) (FIM): 5 Toilet/Commode Transfer(FIM): 5 Shower Transfer(FIM): 4 Additional Short Term Goals: 1-Demonstrate ADL Tasks, 2-Verbalize Understanding , 3-ImproveStrength/Deborah 1=Demonstrate adherence to instructed precautions during ADL tasks. 2=Patient will verbalize/demonstrate understanding of assistive devices/ modifications for ADL. 3=Patient will improve strength/tolerance for activity to enable patient to perform ADL's. OT [facility] Goals Fire Chief'S Aide Goals Time Frame: Dec 12, 2017 Eating (FIM): 6 Eating (QC): 6 Groomin Oral Hygiene (QC): 6 Bathing(FIM): 5 Shower/Bathe Self (QC): 5 Upper Body Dressing(FIM): 5 Upper Body Dressing (QC): 5 Lower Body Dressing(FIM): 5 Lower Body Dressing (QC): 5 On/Off Footwear (QC): 5 Toileting(FIM): 6 Toileting Hygiene (QC): 6 Transfers (B,C,W/C) (FIM): 6 Toilet/Commode Transfer(FIM): 6 Toilet/Commode Transfer (QC): 6 Shower Transfer(FIM): 5 Additional Goals: 1-Demonstrate ADL Tasks, 2-Verbalize Understanding, 3- ImproveStrength/Deborah 1=Demonstrate adherence to instructed precautions during ADL tasks. 2=Patient will verbalize/demonstrate understanding of assistive devices/ modifications for ADL. 3=Patient will improve strength/tolerance for activity to enable patient to perform ADL's. OT Education/Plan Problem List/Assessment Assessment: Decreased Activ Tolerance, Decreased UE Strength, Impaired Bed Mobility, Impaired Funct Balance, Impaired I ADL's, Impaired Self-Care Skills, Restricted Funct UE ROM Discharge Recommendations Plan/Recommendations: Continue POC Therapy D/C Recommendations: Home w/ Family Support, Occupational Therapy Home Care Treatment Plan/Plan of Care Treatment,Training & Education: Yes Patient would benefit from OT for education, treatment and training to promote independence in ADL's, mobility, safety and/or upper extremity function for ADL' s. Plan of Care: ADL Retraining, Functional Mobility, UE Funct Exercise/Act Treatment Duration: Dec 12, 2017 Frequency: At least 5 of 7 days/Wk (IRF) Estimated Hrs Per Day: 1.5 hours per day Agreement: Yes Rehab Potential: Fair Time/GCodes Start Time: 10:00 Stop Time: 11:30 Total Time Billed (hr/min): 90 Billed Treatment Time 1, ADL x 60minutes, Ex x 30minutes JOSE GUADALUPE BONILLA OT Nov 28, 2017 11:52
[2017-11-28] MEDS: ALPRAZolam 0.25 MG (XANAX) TAB PO PRN (11:56)
--- NOTE | 2017-11-28 15:17 | Physical Therapy Daily Note ---
PT Daily Note-Current Subjective Patient agrees to PT. No c/o Pain Numeric Pain Scale: 5-Moderate Pain Location: Left Location Body Site: Hip Pain Description: Ache Mental Status Patient Orientation: Normal For Age Transfers Functional [place] Measure 0=Not Assessed/NA 4=Minimal Assistance 1=Total Assistance 5=Supervision or Setup 2=Maximal Assistance 6=Modified [place] 3=Moderate Assistance 7=Complete IndependenceIRFPAI Quality Coding Scale 6 Independent with activity with or without an assistive device 5 Patient requires set up or clean up by helper. Patient completes activity by themselves 4 Supervision or touching assist (CGA). [place] provide cues , steadying assist 3 The helper provides less than half the effort to complete the activity 2 The helper provides more than half the effort to complete the activity 1 Dependent. The helper does all the effort to complete an activity 7 Patient refused to complete or attempt activity 9 The patient did not perform the activity before the current illness or injury 88 Not attempted due to Medical conditions or safety concerns Transfers (B, C, W/C) (FIM): 6 Scootin Rollin Roll Left to Right (QC): 6 Supine to/from Sit: 6 Sit to/from Stand: 6 Sit to Lying (QC): 6 Sit to Stand (QC): 6 Chair/Qtg-wb-Nhhmp Xfer(QC): 6 Bed to/from Chair: 6 Car Transfer (QC): 6 Weight Bearing Right Lower Extremity: Right Full Weight Bearing Left Lower Extremity: Left Full Weight Bearing Gait Training Does the Patient Walk?: Yes Gait (FIM): 5 Distance (FIM): 3=150 ft Distance: 150' x 3 Walk 10 feet (QC): 5 Walk 50 ft with 2 Turns(QC): 5 Walk 150 ft (QC): 5 Gait Level of Assist: 5 Gait Assistive Device: Walker Standard slow, step to gait sequence Exercises NuStep Minutes: 13 NuStep Workload: 3 Assessment Patient is progressing with treatment plan and will dismiss to home this week with spouse and home health. PT Short Term Goals Short Term Goals Transfers (B,C,W/C) (FIM): 5 PT Mcc Goals Mcc Goals PT Mcc Goals Time Frame: Dec 01, 2017 Transfers (B,C,W/C) (FIM): 6 Sit to Lying (QC): 6 Lying-Sitting on Side/Bed(QC): 6 Sit to Stand (QC): 6 Rollin Roll Left to Right (QC): 6 Chair/Eia-dn-Avuhl Xfer(QC): 6 Car Transfer (QC): 6 Does the Patient Walk: Yes Gait (FIM): 6 Gait distance (FIM): 3=150 ft Distance: 200' Walk 10 feet (QC): 6 Walk 10ft-Uneven Surface(QC): 6 Walk 50ft with 2 Turns (QC): 6 Walk 150 ft (QC): 6 Gait Level of Assist: 6 Gait Assistive Device: FWW Stairs (FIM): 2 # of Steps: 4 1 Step (curb) (QC): 5 4 Steps (QC): 5 12 Steps (QC): 9 Stairs Level Of Assist: 5 Picking up an Object (QC): 5 PT Plan Treatment/Plan Treatment Plan: Continue Plan of Care Treatment Plan: Bed Mobility, Education, Functional Activity Deborah, Functional Strength, Group Therapy, Gait, Safety, Therapeutic Exercise, Transfers Treatment Duration: Dec 01, 2017 Frequency: At least 5 of 7 days/Wk (IRF) Estimated Hrs Per Day: 1.5 hours per day Patient and/or Family Agrees t: Yes Time/GCodes Time In: 1431 Time Out: 1501 Total Billed Treatment Time: 30 Total Billed Treatment 1 visit GT 14 min EX 16 min ROSHAN SINGH PT Nov 28, 2017 15:17
--- NOTE | 2017-11-28 15:49 | PM & R (SOAP) Progress Note ---
Subjective This was a face to face visit with the patient. Date Seen by Provider: Nov 28, 2017 Time Seen by Provider: 07:40 Subjective/Events-last exam Patient was seen in her room this AM Patient Modifeid Independent for transfers Patient requested med for spasms last evening with good results reported this AM with Flexeril .Patient had questions re discharge set for AM and request for RX for Flexeril and Hydrocodone Will f/u Objective Physician Exam Last Set of Vital Signs Vital Signs Date Time Temp Pulse Resp B/P (MAP) Pulse Ox O2 Delivery O2 Flow Rate FiO2 11/28/17 15:09 95 Nasal Cannula 2.00 11/28/17 05:03 97.8 86 16 121/65 (83) Capillary Refill : Less Than 3 Seconds I&O Intake and Output 11/28/17 00:00 Intake Total 4300 ml Output Total 7900 ml Balance -3600 ml Intake Oral 4300 ml Output Urine Total 7900 ml # Bowel Movements 1 General: Alert, Oriented X3, Cooperative, No Acute Distress, Other (mildly anxious) HEENT: Atraumatic, PERRLA, EOMI, Mucous Memb Moist/[place] Neck: Supple, No JVD Lungs: Clear to Auscultation Heart: Regular Rate Abdomen: Normal Bowel Sounds, Soft, No Tenderness Extremities: Other (Trace edeam left ankle) Neuro: Other (Weakness left hip due to injury and guarding Intermittent tremors Decreased sensation to light touch in feet otherwise generalized weakness Anxiety) Results Lab Data Laboratory Tests 11/25/17 16:02: Glucometer 224H 11/25/17 20:17: Glucometer 113H 11/26/17 05:35: Glucometer 196H 11/26/17 10:58: Glucometer 262H 11/26/17 16:31: Glucometer 202H 11/26/17 20:24: Glucometer 183H 11/27/17 05:55: Glucometer 127H 11/27/17 10:50: Glucometer 276H 11/27/17 16:02: Glucometer 317H 11/27/17 20:11: Glucometer 334H 11/28/17 04:08: Glucometer 173H 11/28/17 11:01: Glucometer 235H Microbiology 11/23/17 Throat Culture - Final, Complete No Beta Strep isolated Assessment/Plan Assessment and Plan Left Prox femur fracture s/p IM nailing ortho 11-16-17 Spasms treated Postop DVT prophylaxis on ASA BID IDDM [place] djusted Anxiety/depressionon meds RT Parotid tail mass will have f/u as an outpatient Sore throat with negative Strep test resolved Tobaccoism abstaining Diabetic PN Plan Continue PT/OT and current meds Team Conference tomorrow Discharge remians set for 11-30-17 to home with spouse with f/u with ortho in [place] that morning for staple removal (1) Fracture dislocation of left hip joint Qualifiers: Qualified Codes: S72.002D - Fracture of unspecified part of neck of left femur, subsequent encounter for closed fracture with routine healing Status: Acute Co-Morbidities that are continuing to impact the rehab process: (include details ) RYNE CARPENTER MD Nov 28, 2017 15:49
[2017-11-28 18:00] VITALS: BP 169/72
[2017-11-28] MEDS: POLYETHYLENE GLYCOL 17 GM (MIRALAX) PACK PO SCH (20:37)
[2017-11-28] MEDS: OLANZapine 5 MG (ZyPREXA) TAB PO SCH (20:37)
[2017-11-28] MEDS: DOXEPIN 10 MG (SINEquan) CAP PO SCH (20:37)
[2017-11-28] MEDS: PRAZOSIN 1 MG CAPSULE (MINIPRESS) NON-FORMULARY PO SCH (20:37)
[2017-11-28] MEDS: FENOFIBRATE 134 MG (LOFIBRA) CAPSULE PO SCH (20:37)
[2017-11-29] MEDS: HYDROcodone/APAP 10 MG/325 MG (LORTAB) TAB PO PRN ×4 (04:00→17:39)
[2017-11-29] MEDS: HUMALOG KWIKPEN SQ SCH ×7 (05:48→21:25)
[2017-11-29 06:20] VITALS: BP 146/67
[2017-11-29] MEDS: OMEGA 3 (FISH OIL) 1000 MG CAP PO SCH ×2 (06:25→16:33)
[2017-11-29] MEDS: LIPASE/AMYLASE/PROTEASE (PANCRELIPASE) 5,000 UNITS CAP PO SCH ×3 (06:25→16:33)
[2017-11-29] MEDS: PANTOPRAZOLE 20 MG TABLET (PROTONIX) PO SCH (06:25)
[2017-11-29] MEDS: CYCLOBENZAPRINE 10 MG (FLEXERIL) TAB PO PRN ×3 (06:26→21:27)
[2017-11-29] MEDS: RT-ALBUTEROL/IPRATROPIUM 3 ML (DUONEB) VIAL INH SCH ×4 (07:19→19:03)
--- NOTE | 2017-11-29 07:31 | PM & R (SOAP) Progress Note ---
Subjective This was a face to face visit with the patient. Date Seen by Provider: Nov 29, 2017 Time Seen by Provider: 07:30 Subjective/Events-last exam Patient was seen in her room this AM Patient Modified Independent for transfers patient c/o increased back pain as she mobilizes has Lortab and flexeril available Review of Systems Musculoskeletal: back pain Objective Physician Exam Last Set of Vital Signs Vital Signs Date Time Temp Pulse Resp B/P (MAP) Pulse Ox O2 Delivery O2 Flow Rate FiO2 11/29/17 06:20 97.5 91 19 146/67 (93) 96 Nasal Cannula 2.00 Capillary Refill : Less Than 3 Seconds I&O Intake and Output 11/29/17 00:00 Intake Total 4480 ml Output Total 5300 ml Balance -820 ml Intake Oral 4480 ml Output Urine Total 5300 ml # Bowel Movements 3 General: Alert, Oriented X3, Cooperative, No Acute Distress, Other (mildly anxious) HEENT: Atraumatic, PERRLA, EOMI, Mucous Memb Moist/[place] Neck: Supple, No JVD Lungs: Clear to Auscultation Heart: Regular Rate Abdomen: Normal Bowel Sounds, Soft, No Tenderness Extremities: Other (Trace edeam left ankle) Neuro: Other (Weakness left hip due to injury and guarding Intermittent tremors Decreased sensation to light touch in feet otherwise generalized weakness Anxiety) Results Lab Data Laboratory Tests 11/26/17 10:58: Glucometer 262H 11/26/17 16:31: Glucometer 202H 11/26/17 20:24: Glucometer 183H 11/27/17 05:55: Glucometer 127H 11/27/17 10:50: Glucometer 276H 11/27/17 16:02: Glucometer 317H 11/27/17 20:11: Glucometer 334H 11/28/17 04:08: Glucometer 173H 11/28/17 11:01: Glucometer 235H 11/28/17 15:52: Glucometer 148H 11/28/17 20:09: Glucometer 190H 11/29/17 05:46: Glucometer 143H Microbiology 11/23/17 Throat Culture - Final, Complete No Beta Strep isolated Assessment/Plan Assessment and Plan Left prox femur fracture s/p IM nailing [facility] Back pain with spasms symptomatic relief as per above Postop DVT prophylaxis on ASA BID IDDM controlled Anxiety/depression on meds RT Parotid tail mass to have eeeval on outpatient basis at [facility] [place] with PCP DR Carmen Sore throat with negative strep test resolved Tobaccoism abstaining Diabetic PN Plan Continue PT/OT Team Conference later today -See report for full functional update and POC and ELOS Discharge set for tomorrow to home with spouse with 11 AM f/u appoitment with ortho tomorrow for staple removal F/U with PCP re above for f/u RT parotid mass (1) Fracture dislocation of left hip joint Qualifiers: Qualified Codes: S72.002D - Fracture of unspecified part of neck of left femur, subsequent encounter for closed fracture with routine healing Status: Acute Co-Morbidities that are continuing to impact the rehab process: (include details ) RYNE CARPENTER MD Nov 29, 2017 07:31
--- NOTE | 2017-11-29 08:08 | Progress Note (SOAP) ---
Subjective Time Seen by Provider: 08:05 Subjective/Events-last exam Patient sleeping comfortably. The patient awaken she just wanted a pain pill. Objective Exam Vital Signs Date Time Temp Pulse Resp B/P (MAP) Pulse Ox O2 Delivery O2 Flow Rate FiO2 11/29/17 07:21 97 Nasal Cannula 3.00 11/29/17 06:20 97.5 91 19 146/67 (93) 96 Nasal Cannula 2.00 11/28/17 20:08 Nasal Cannula 2.50 11/28/17 19:25 92 Nasal Cannula 3.00 11/28/17 19:19 74 Room Air 11/28/17 18:00 98.5 89 16 169/72 (104) 96 Nasal Cannula 2.00 11/28/17 15:09 95 Nasal Cannula 2.00 11/28/17 10:11 92 Nasal Cannula 2.00 11/28/17 08:55 Nasal Cannula 2.50 I & O 11/29/17 07:00 Intake Total 3400 ml Output Total 3400 ml Balance 0 ml Capillary Refill : Less Than 3 Seconds General Appearance: No Apparent Distress, WD/WN HEENT: Normal ENT Inspection Neck: Normal Inspection Results Lab Laboratory Tests 11/28/17 11:01: Glucometer 235H 11/28/17 15:52: Glucometer 148H 11/28/17 20:09: Glucometer 190H 11/29/17 05:46: Glucometer 143H Microbiology 11/23/17 Throat Culture - Final, Complete No Beta Strep isolated Assessment/Plan Assessment/Plan Assess & Plan/Chief Complaint Left femur fracture. FALL Diabetes. COPD.. . 11/22/17. Left femur fracture. Fall. COPD. Diabetes. . 11/23/17. Left femur fracture. FALL. COPD. Diabetes. Lymph node in right side of the neck to be evaluated by ENT. . 11/24/17 left femur fracture. fall COPD. To evaluate mass in right side of neck. Plan 11/27/17. Left femur fracture. COPD. fall. Patient breathing better. Patient complaining of pain. Patient seen by [facility] area Marijuana usage. . 11/28/17. Left femur fracture. COPD. fall. Patient not complaining of pain this a.m. . 11/29/17. Left femur fracture. COPD. fall. Diabetes. Patient resting comfortably wanting her pain medicine Clinical Quality Measures DVT/VTE Risk/Contraindication: Risk Factor Score Per Nursin RFS Level Per Nursing on Admit: 4+=Very High BLAIRE DIXNO DO Nov 29, 2017 08:08
[2017-11-29] MEDS: NICOTINE 14 MG (NICODERM) PATCH TD SCH (09:18)
[2017-11-29] MEDS: PREGABALIN 75 MG (LYRICA) CAP PO SCH ×3 (09:18→20:48)
[2017-11-29] MEDS: FLUoxetine HCL 20 MG (PROzac) CAP PO SCH ×2 (09:19→20:49)
[2017-11-29] MEDS: FUROSEMIDE 20 MG (LASIX) TAB PO SCH (09:20)
[2017-11-29] MEDS: SENNA W/DOCUSATE (SENOKOT S) TABLET PO SCH ×2 (09:20→20:48)
[2017-11-29] MEDS: ASPIRIN E.C. 81 MG (ECOTRIN) TAB PO SCH ×2 (09:20→20:49)
[2017-11-29] MEDS: NICOTINE PATCH REMOVAL TP SCH (09:20)
[2017-11-29] MEDS: ENALAPRIL 2.5 MG (VASOTEC) TAB PO SCH (09:22)
[2017-11-29] MEDS: INSULIN DEGLUDEC SQ SCH (09:23)
[2017-11-29] MEDS: RT-ADVAIR HFA 115/21 MCG PER PUFF IH SCH ×3 (10:00→19:11)
[2017-11-29] MEDS: DICLOFENAC 1% GEL 100 GM (VOLTAREN) TUBE TOP SCH ×4 (11:01→20:49)
--- NOTE | 2017-11-29 11:15 | Physical Therapy Daily Note ---
PT Daily Note-Current Subjective Pt laying Supine in bed upon arrival. Pt agrees to PT. Pt reports back & leg pain, describes as Sciatic pain. Pain Numeric Pain Scale: 9 Location: Lower Location Body Site: Back Pain Description: Ache Comment: Pt reports pain starting in Low Back and radiates down LLE. Mental Status Patient Orientation: Person, Place, Time, Situation Attachments: Oxygen (2L) Transfers Functional [place] Measure 0=Not Assessed/NA 4=Minimal Assistance 1=Total Assistance 5=Supervision or Setup 2=Maximal Assistance 6=Modified [place] 3=Moderate Assistance 7=Complete IndependenceIRFPAI Quality Coding Scale 6 Independent with activity with or without an assistive device 5 Patient requires set up or clean up by helper. Patient completes activity by themselves 4 Supervision or touching assist (CGA). [place] provide cues , steadying assist 3 The helper provides less than half the effort to complete the activity 2 The helper provides more than half the effort to complete the activity 1 Dependent. The helper does all the effort to complete an activity 7 Patient refused to complete or attempt activity 9 The patient did not perform the activity before the current illness or injury 88 Not attempted due to Medical conditions or safety concerns Transfers (B, C, W/C) (FIM): 5 Scootin Rollin Roll Left to Right (QC): 6 Supine to/from Sit: 5 Sit to/from Stand: 6 Sit to Lying (QC): 5 Sit to Stand (QC): 6 Chair/Cyi-sj-Aytia Xfer(QC): 6 Bed to/from Chair: 6 Car Transfer (QC): 5 Weight Bearing Right Lower Extremity: Right Full Weight Bearing Left Lower Extremity: Left Full Weight Bearing Gait Training Does the Patient Walk?: Yes Gait (FIM): 5 Distance (FIM): 3=150 ft Distance: 250' Walk 10 feet (QC): 6 Walk 50 ft with 2 Turns(QC): 5 Walk 150 ft (QC): 5 Walking 10ft/uneven surface-QC: 5 Gait Level of Assist: 5 Gait Persons Needed: 1 Gait Assistive Device: FWW Pt walks with slow gait pattern, encouraged to put more WB on LLE to decrease load on UE. Wheelchair Training Does the Pt Use a Wheelchair?: No Stair Training Stair Training: Handrails/: 2 handrails Stairs (FIM): 2 #of Steps: 4 1 Step (curb) (QC): 5 4 Steps (QC): 5 12 Steps (QC): 88 Stairs: Pattern: Step to Level of Assist: 5 Balance Picking up an Object (QC): 88 Special Test Comments Pt did not complete due to back limitations. Exercises Supine Ex: Ankle pumps, Quad Set, Glut sets, Heel Slides, Straight leg raise, Hip abd/add Supine Reps: 15 NuStep Minutes: 15 NuStep Workload: 5 (Pt starts at WL 4, uped to WL 5 last 5m) Treatments Pt transfers Supine to EOB at SBA then EOB to standing at Mod I, bed mobility at Mod I, car transfer at SBA. Pt ambulates using FWW at A. Pt completes 1 set of 4 steps at SBA using 2 handrails. Pt completes walk across varying surface at SBA. Pt uses NuStep for 15m at WL 5 and completes Supine EX in bed at end of tx. Pt has all needs met including call light next to pt. Assessment Current Status: Good Progress Pt fatigues and needs occasional rest breaks. Pt takes a little time to complete tasks although able to complete it. PT Short Term Goals Short Term Goals Transfers (B,C,W/C) (FIM): 5 PT Hosiery Knitter Goals Hosiery Knitter Goals PT Hosiery Knitter Goals Time Frame: Dec 01, 2017 Transfers (B,C,W/C) (FIM): 6 Sit to Lying (QC): 6 Lying-Sitting on Side/Bed(QC): 6 Sit to Stand (QC): 6 Rollin Roll Left to Right (QC): 6 Chair/Naj-wt-Uevdl Xfer(QC): 6 Car Transfer (QC): 6 Does the Patient Walk: Yes Gait (FIM): 6 Gait distance (FIM): 3=150 ft Distance: 200' Walk 10 feet (QC): 6 Walk 10ft-Uneven Surface(QC): 6 Walk 50ft with 2 Turns (QC): 6 Walk 150 ft (QC): 6 Gait Level of Assist: 6 Gait Assistive Device: FWW Stairs (FIM): 2 # of Steps: 4 1 Step (curb) (QC): 5 4 Steps (QC): 5 12 Steps (QC): 9 Stairs Level Of Assist: 5 Picking up an Object (QC): 5 PT Plan Problem List Problem List: Activity Tolerance, Functional Strength, Gait Treatment/Plan Treatment Plan: Continue Plan of Care Treatment Plan: Bed Mobility, Education, Functional Activity Deborah, Functional Strength, Group Therapy, Gait, Safety, Therapeutic Exercise, Transfers Treatment Duration: Dec 01, 2017 Frequency: At least 5 of 7 days/Wk (IRF) Estimated Hrs Per Day: 1.5 hours per day Patient and/or Family Agrees t: Yes Safety Risks/Education Patient Education: Gait Training, Transfer Techniques, Steps, Correct Positioning, Safety Issues Teaching Recipient: Patient Teaching Methods: Discussion Response to Teaching: Verbalize Understanding Time/GCodes Time In: 930 Time Out: 1100 Total Billed Treatment Time: 90 Total Billed Treatment 1, GT x2 (30m), EX x2 (30m) & FA x2 (30m) G Codes Necessary: LOULOU Pa FOUNDRY LABORER COREROOM Nov 29, 2017 11:15
--- NOTE | 2017-11-29 13:54 | Occupational Ther Daily Note ---
OT Current Status-Daily Note Subjective No pain reported. Appearance Pt. agrees to work with OT. Mental Status/Objective Patient Orientation: Person, Place Functional [place] Measure 0=Not Assessed/NA 4=Minimal Assistance 1=Total Assistance 5=Supervision or Setup 2=Maximal Assistance 6=Modified [place] 3=Moderate Assistance 7=Complete [place] ADL-Treatment Functional [place] Measure 0=Not Assessed/NA 4=Minimal Assistance 1=Total Assistance 5=Supervision or Setup 2=Maximal Assistance 6=Modified [place] 3=Moderate Assistance 7=Complete IndependenceIRFPAI Quality Coding Scale 6 Independent with activity with or without an assistive device 5 Patient requires set up or clean up by helper. Patient completes activity by themselves 4 Supervision or touching assist (CGA). [place] provide cues , steadying assist 3 The helper provides less than half the effort to complete the activity 2 The helper provides more than half the effort to complete the activity 1 Dependent. The helper does all the effort to complete an activity 7 Patient refused to complete or attempt activity 9 The patient did not perform the activity before the current illness or injury 88 Not attempted due to Medical conditions or safety concerns Grooming (FIM): 6 (pt. is able to brush hair at chair level.) Oral Hygiene (QC): 9 Bathing (FIM): 6 Shower/Bathe Self (QC): 6 Upper Body (FIM): 6 Upper Body Dressing (QC): 6 Lower Body Dressing (FIM): 4 (Min assist with sock aide to don sock. SBA to don brief and shorts with dressing stick.) Lower Body Dressing (QC): 4 On/Off Footwear (QC): 4 Transfers (B, C, W/C) (FIM): 6 Toilet/Commode Transfer (FIM): 6 Toilet Transfer (QC): 6 Shower Transfer(FIM): 5 Other Treatment Pt. able to bathe and dress in room with AE as needed. Pt. to discharge tomorrow. States that she is interested in meals on wheels and a tub transfer bench. Education OT Patient Education: Correct positioning, Modified ADL techniques, Progress toward Goal/Update tx plan, Purpose of tx/functional activities, Reviewed precautions, Rehab process, Transfer techniques, Use of adapted equipment Teaching Recipient: Patient Teaching Methods: Demonstration, Discussion Response to Teaching: Verbalize Understanding, Return Demonstration OT Short Term Goals Short Term Goals Time Frame: Nov 28, 2017 Eating(FIM): 5 Grooming(FIM): 5 Bathing(FIM): 4 Upper Body Dressing(FIM): 5 Lower Body Dressing(FIM): 4 Toileting(FIM): 4 Transfers (B,C,W/C) (FIM): 5 Toilet/Commode Transfer(FIM): 5 Shower Transfer(FIM): 4 Additional Short Term Goals: 1-Demonstrate ADL Tasks, 2-Verbalize Understanding , 3-ImproveStrength/Deborah 1=Demonstrate adherence to instructed precautions during ADL tasks. 2=Patient will verbalize/demonstrate understanding of assistive devices/ modifications for ADL. 3=Patient will improve strength/tolerance for activity to enable patient to perform ADL's. OT Steamer Blocker Goals Steamer Blocker Goals Time Frame: Dec 12, 2017 Eating (FIM): 6 Eating (QC): 6 Groomin Oral Hygiene (QC): 6 Bathing(FIM): 5 Shower/Bathe Self (QC): 5 Upper Body Dressing(FIM): 5 Upper Body Dressing (QC): 5 Lower Body Dressing(FIM): 5 Lower Body Dressing (QC): 5 On/Off Footwear (QC): 5 Toileting(FIM): 6 Toileting Hygiene (QC): 6 Transfers (B,C,W/C) (FIM): 6 Toilet/Commode Transfer(FIM): 6 Toilet/Commode Transfer (QC): 6 Shower Transfer(FIM): 5 Additional Goals: 1-Demonstrate ADL Tasks, 2-Verbalize Understanding, 3- ImproveStrength/Deborah 1=Demonstrate adherence to instructed precautions during ADL tasks. 2=Patient will verbalize/demonstrate understanding of assistive devices/ modifications for ADL. 3=Patient will improve strength/tolerance for activity to enable patient to perform ADL's. OT Education/Plan Problem List/Assessment Assessment: Decreased Activ Tolerance, Impaired I ADL's Discharge Recommendations Plan/Recommendations: Continue POC Therapy D/C Recommendations: Home w/ Family Support Equpiment Recommendations-D/C: Extended Bath Bench, Hip Kit Treatment Plan/Plan of Care Treatment,Training & Education: Yes Patient would benefit from OT for education, treatment and training to promote independence in ADL's, mobility, safety and/or upper extremity function for ADL' s. Plan of Care: ADL Retraining, Functional Mobility, UE Funct Exercise/Act Treatment Duration: Dec 12, 2017 Frequency: At least 5 of 7 days/Wk (IRF) Estimated Hrs Per Day: 1.5 hours per day Agreement: Yes Rehab Potential: Fair Time/GCodes Start Time: 08:30 Stop Time: 09:30 Total Time Billed (hr/min): 60 Billed Treatment Time 1, ADL x 4 JOSE GUADALUPE BONILLA OT Nov 29, 2017 13:54
[2017-11-29] MEDS: ALPRAZolam 0.25 MG (XANAX) TAB PO PRN ×2 (14:29→22:31)
--- NOTE | 2017-11-29 15:06 | Occupational Ther Daily Note ---
OT Current Status-Daily Note Subjective No pain reported. Appearance Pt. in bed. Agrees to work with OT. Mental Status/Objective Patient Orientation: Person, Place, Time, Situation Functional [place] Measure 0=Not Assessed/NA 4=Minimal Assistance 1=Total Assistance 5=Supervision or Setup 2=Maximal Assistance 6=Modified [place] 3=Moderate Assistance 7=Complete [place] ADL-Treatment Functional [place] Measure 0=Not Assessed/NA 4=Minimal Assistance 1=Total Assistance 5=Supervision or Setup 2=Maximal Assistance 6=Modified [place] 3=Moderate Assistance 7=Complete IndependenceIRFPAI Quality Coding Scale 6 Independent with activity with or without an assistive device 5 Patient requires set up or clean up by helper. Patient completes activity by themselves 4 Supervision or touching assist (CGA). Ace provide cues , steadying assist 3 The helper provides less than half the effort to complete the activity 2 The helper provides more than half the effort to complete the activity 1 Dependent. The helper does all the effort to complete an activity 7 Patient refused to complete or attempt activity 9 The patient did not perform the activity before the current illness or injury 88 Not attempted due to Medical conditions or safety concerns Toileting (FIM): 6 Toileting Hygiene (QC): 6 Transfers (B, C, W/C) (FIM): 6 Toilet/Commode Transfer (FIM): 6 Toilet Transfer (QC): 6 Pt. is able to transfer out of bed with Mod I. Ambulated with oxygen follow to dining area. Requested to sit down, as she was fatigued. OT made pt. cup of coffee and after resting, pt. agreed to ambulate to laundry room. Pt. able to bend over and remove clothing from dryer. Unable to reach socks in back of dryer, and pt. educated on using bookkeeping teacher. Pt. states that spouse does their laundry at laundry mat. Ambulated back to dining area and sat to rest again. Pt. began to state that she felt like she was having a panic attack. Requested a xanax and so nursing was notified. Ambulated back to room for pt. to toilet. Pt. able to toilet self with Mod I. Transferred back to bed with Mod I. All needs met in room. Education OT Patient Education: Correct positioning, Modified ADL techniques, Progress toward Goal/Update tx plan, Purpose of tx/functional activities, Reviewed precautions, Rehab process, Transfer techniques Teaching Recipient: Patient Teaching Methods: Demonstration Response to Teaching: Verbalize Understanding, Return Demonstration OT Short Term Goals Short Term Goals Time Frame: Nov 28, 2017 Eating(FIM): 5 Grooming(FIM): 5 Bathing(FIM): 4 Upper Body Dressing(FIM): 5 Lower Body Dressing(FIM): 4 Toileting(FIM): 4 Transfers (B,C,W/C) (FIM): 5 Toilet/Commode Transfer(FIM): 5 Shower Transfer(FIM): 4 Additional Short Term Goals: 1-Demonstrate ADL Tasks, 2-Verbalize Understanding , 3-ImproveStrength/Deborah 1=Demonstrate adherence to instructed precautions during ADL tasks. 2=Patient will verbalize/demonstrate understanding of assistive devices/ modifications for ADL. 3=Patient will improve strength/tolerance for activity to enable patient to perform ADL's. OT Feeder Associate Goals Mcc Goals Time Frame: Dec 12, 2017 Eating (FIM): 6 Eating (QC): 6 Groomin Oral Hygiene (QC): 6 Bathing(FIM): 5 Shower/Bathe Self (QC): 5 Upper Body Dressing(FIM): 5 Upper Body Dressing (QC): 5 Lower Body Dressing(FIM): 5 Lower Body Dressing (QC): 5 On/Off Footwear (QC): 5 Toileting(FIM): 6 Toileting Hygiene (QC): 6 Transfers (B,C,W/C) (FIM): 6 Toilet/Commode Transfer(FIM): 6 Toilet/Commode Transfer (QC): 6 Shower Transfer(FIM): 5 Additional Goals: 1-Demonstrate ADL Tasks, 2-Verbalize Understanding, 3- ImproveStrength/Deborah 1=Demonstrate adherence to instructed precautions during ADL tasks. 2=Patient will verbalize/demonstrate understanding of assistive devices/ modifications for ADL. 3=Patient will improve strength/tolerance for activity to enable patient to perform ADL's. OT Education/Plan Problem List/Assessment Assessment: Decreased Activ Tolerance, Impaired I ADL's Discharge Recommendations Plan/Recommendations: Continue POC Therapy D/C Recommendations: Home w/ Family Support Treatment Plan/Plan of Care Treatment,Training & Education: Yes Patient would benefit from OT for education, treatment and training to promote independence in ADL's, mobility, safety and/or upper extremity function for ADL' s. Plan of Care: ADL Retraining, Functional Mobility, UE Funct Exercise/Act Treatment Duration: Dec 12, 2017 Frequency: At least 5 of 7 days/Wk (IRF) Estimated Hrs Per Day: 1.5 hours per day Agreement: Yes Rehab Potential: Fair Time/GCodes Start Time: 14:00 Stop Time: 14:30 Total Time Billed (hr/min): 30 Billed Treatment Time 1, ADL x 2 JOSE GUADALUPE BONILLA OT Nov 29, 2017 15:06
[2017-11-29] MEDS ORDERED: HYDR-3820 PO (17:01)
[2017-11-29] MEDS ORDERED: DOXE10CA29 PO (17:01)
[2017-11-29] MEDS ORDERED: CYCL10TA9 PO (17:01)
[2017-11-29 17:55] VITALS: BP 150/69
[2017-11-29] MEDS: DOXEPIN 10 MG (SINEquan) CAP PO SCH (20:48)
[2017-11-29] MEDS: FENOFIBRATE 134 MG (LOFIBRA) CAPSULE PO SCH (20:48)
[2017-11-29] MEDS: OLANZapine 5 MG (ZyPREXA) TAB PO SCH (20:48)
[2017-11-29] MEDS: POLYETHYLENE GLYCOL 17 GM (MIRALAX) PACK PO SCH (20:49)
[2017-11-29] MEDS: PRAZOSIN 1 MG CAPSULE (MINIPRESS) NON-FORMULARY PO SCH (20:49)
[2017-11-30] MEDS: HYDROcodone/APAP 10 MG/325 MG (LORTAB) TAB PO PRN ×2 (00:30→06:17)
[2017-11-30 05:55] VITALS: BP 165/79
[2017-11-30] MEDS: LIPASE/AMYLASE/PROTEASE (PANCRELIPASE) 5,000 UNITS CAP PO SCH (06:17)
[2017-11-30] MEDS: PANTOPRAZOLE 20 MG TABLET (PROTONIX) PO SCH (06:17)
[2017-11-30] MEDS: OMEGA 3 (FISH OIL) 1000 MG CAP PO SCH (06:17)
[2017-11-30] MEDS: HUMALOG KWIKPEN SQ SCH ×2 (06:19→06:20)
[2017-11-30] MEDS: RT-ALBUTEROL/IPRATROPIUM 3 ML (DUONEB) VIAL INH SCH ×2 (07:14→10:11)
--- NOTE | 2017-11-30 07:56 | Progress Note (SOAP) ---
Subjective Time Seen by Provider: 07:55 Subjective/Events-last exam Patient to be discharged today. Patient feeling good. Patient to see her own doctor today Objective Exam Vital Signs Date Time Temp Pulse Resp B/P (MAP) Pulse Ox O2 Delivery O2 Flow Rate FiO2 11/30/17 07:15 94 Nasal Cannula 2.00 11/30/17 05:55 97.0 95 21 165/79 (107) 95 Nasal Cannula 2.00 11/29/17 21:00 Nasal Cannula 2.50 11/29/17 19:10 Nasal Cannula 2.00 11/29/17 19:03 94 Nasal Cannula 2.00 11/29/17 17:55 97.9 89 18 150/69 (96) 95 Nasal Cannula 2.00 11/29/17 11:05 96 Nasal Cannula 3.00 11/29/17 09:00 Nasal Cannula 2.50 I & O 11/30/17 07:00 Intake Total 3600 ml Balance 3600 ml Capillary Refill : Less Than 3 Seconds General Appearance: No Apparent Distress, WD/WN HEENT: Normal ENT Inspection Neck: Full Range of Motion, Normal Inspection Results Lab Laboratory Tests 11/29/17 11:07: Glucometer 156H 11/29/17 15:38: Glucometer 177H 11/29/17 21:21: Glucometer 211H 11/30/17 05:58: Glucometer 194H Microbiology 11/23/17 Throat Culture - Final, Complete No Beta Strep isolated Assessment/Plan Assessment/Plan Assess & Plan/Chief Complaint Left femur fracture. FALL Diabetes. COPD.. . 11/22/17. Left femur fracture. Fall. COPD. Diabetes. . 11/23/17. Left femur fracture. FALL. COPD. Diabetes. Lymph node in right side of the neck to be evaluated by ENT. . 11/24/17 left femur fracture. fall COPD. To evaluate mass in right side of neck. Plan 11/27/17. Left femur fracture. COPD. fall. Patient breathing better. Patient complaining of pain. Patient seen by mental [facility] area Marijuana usage. . 11/28/17. Left femur fracture. COPD. fall. Patient not complaining of pain this a.m. . 11/29/17. Left femur fracture. COPD. fall. Diabetes. Patient resting comfortably wanting her pain medicine. . 11/30/17. Left femur fracture. COPD. FALL. Diabetes Clinical Quality Measures DVT/VTE Risk/Contraindication: Risk Factor Score Per Nursin RFS Level Per Nursing on Admit: 4+=Very High BLAIRE DIXON DO Nov 30, 2017 07:56
[2017-11-30] MEDS: NICOTINE 14 MG (NICODERM) PATCH TD SCH (08:04)
[2017-11-30] MEDS: ENALAPRIL 2.5 MG (VASOTEC) TAB PO SCH (08:05)
[2017-11-30] MEDS: FUROSEMIDE 20 MG (LASIX) TAB PO SCH (08:06)
[2017-11-30] MEDS: SENNA W/DOCUSATE (SENOKOT S) TABLET PO SCH (08:06)
[2017-11-30] MEDS: ASPIRIN E.C. 81 MG (ECOTRIN) TAB PO SCH (08:06)
[2017-11-30] MEDS: FLUoxetine HCL 20 MG (PROzac) CAP PO SCH (08:06)
[2017-11-30] MEDS: INSULIN DEGLUDEC SQ SCH (08:07)
[2017-11-30] MEDS: PREGABALIN 75 MG (LYRICA) CAP PO SCH (08:07)
[2017-11-30] MEDS: DICLOFENAC 1% GEL 100 GM (VOLTAREN) TUBE TOP SCH (08:08)
--- NOTE | 2017-11-30 08:13 | PM & R (SOAP) Progress Note ---
Subjective This was a face to face visit with the patient. Date Seen by Provider: Nov 30, 2017 Time Seen by Provider: 07:40 Subjective/Events-last exam Patient was seen in her room this AM.[place] for discharge today C/O increased back pain which is most likely related to increased activity with therapies and LE injury Patienst spouse indicates that ortho f/u will be rescheduled for 12-04-17 due to Physicians illness,RX for Flexeril and Hydrocodone provided Review of Systems Musculoskeletal: back pain Objective Physician Exam Last Set of Vital Signs Vital Signs Date Time Temp Pulse Resp B/P (MAP) Pulse Ox O2 Delivery O2 Flow Rate FiO2 11/30/17 07:15 94 Nasal Cannula 2.00 11/30/17 05:55 97.0 95 21 165/79 (107) Capillary Refill : Less Than 3 Seconds I&O Intake and Output 11/30/17 00:00 Intake Total 3600 ml Balance 3600 ml Intake Oral 3600 ml # Voids 8 # Bowel Movements 1 General: Alert, Oriented X3, Cooperative, No Acute Distress, Other (mildly anxious) HEENT: Atraumatic, PERRLA, EOMI, Mucous Memb Moist/[place] Neck: Supple, No JVD Lungs: Clear to Auscultation Heart: Regular Rate Abdomen: Normal Bowel Sounds, Soft, No Tenderness Extremities: Other (Trace edeam left ankle) Neuro: Other (Weakness left hip due to injury and guarding Intermittent tremors Decreased sensation to light touch in feet otherwise generalized weakness Anxiety) Results Lab Data Laboratory Tests 11/27/17 10:50: Glucometer 276H 11/27/17 16:02: Glucometer 317H 11/27/17 20:11: Glucometer 334H 11/28/17 04:08: Glucometer 173H 11/28/17 11:01: Glucometer 235H 11/28/17 15:52: Glucometer 148H 11/28/17 20:09: Glucometer 190H 11/29/17 05:46: Glucometer 143H 11/29/17 11:07: Glucometer 156H 11/29/17 15:38: Glucometer 177H 11/29/17 21:21: Glucometer 211H 11/30/17 05:58: Glucometer 194H Microbiology 11/23/17 Throat Culture - Final, Complete No Beta Strep isolated Assessment/Plan Assessment and Plan Home today with spouse to [place] F/U with ortho in [facility] and ortho at [facility] [place] Will have f/u with PCP re rt parotid mass Current meds reviewed See orders (1) Fracture dislocation of left hip joint Qualifiers: Qualified Codes: S72.002D - Fracture of unspecified part of neck of left femur, subsequent encounter for closed fracture with routine healing Status: Acute Co-Morbidities that are continuing to impact the rehab process: (include details ) RYNE CARPENTER MD Nov 30, 2017 08:13
[2017-11-30] MEDS ORDERED: HYDR-3820 PO (08:18)
[2017-11-30] MEDS: NICOTINE PATCH REMOVAL TP SCH (08:23)
--- NOTE | 2017-11-30 08:48 | Therapy Team Discharge Summary ---
Therapy Discharge Summary Discharge Recommendations Date of Discharge 11-30-17 Therapy D/C Recommendations: Home w/ Family Support Occupational Therapy Pt. has been seen by occupational therapy to increase overall strength and endurance with daily tasks. Pt. has met most goals, but continues to require assistance to don left sock, even with sock aide. Pt. is motivated to return home. Pt. has been educated in kitchen and laundry room safety. Pt. is returning home with spouse. Recommend meals on wheels, tub/transfer bench, and DS/sock aide as needed. Decreased Activ Tolerance, Impaired I ADL's PT Hospitality House Supervisor Goals Assisted Goals PT Hospitality House Supervisor Goals Time Frame: Dec 01, 2017 Transfers (B,C,W/C) (FIM): 6 Roll Left to Right (QC): 6 Sit to Lying (QC): 6 Lying-Sitting on Side/Bed(QC): 6 Sit to Stand (QC): 6 Chair/Owu-nk-Ldjjl Xfer(QC): 6 Car Transfer (QC): 6 Does the Patient Walk: Yes Gait (FIM): 6 Gait distance (FIM): 3=150 ft Distance: 200' Walk 10 feet (QC): 6 Walk 10ft-Uneven Surface(QC): 6 Walk 50ft with 2 Turns (QC): 6 Walk 150 ft (QC): 6 Gait Level of Assist: 6 Gait Assistive Device: FWW Stairs (FIM): 2 # of Steps: 4 1 Step (curb) (QC): 5 4 Steps (QC): 5 12 Steps (QC): 9 Stairs Level Of Assist: 5 Picking up an Object (QC): 5 OT Assisted Goals Assisted Goals Time Frame: Dec 12, 2017 Eating (FIM): 6 (met) Eating (QC): 6 (met) Oral Hygiene (QC): 6 (not met- Does not perform) Grooming(FIM): 6 (met) Bathing(FIM): 5 (met) Shower/Bathe Self (QC): 5 (met) Upper Body Dressing(FIM): 5 (met) Upper Body Dressing (QC): 5 (met) Lower Body Dressing(FIM): 5 (not met) Lower Body Dressing (QC): 5 (not met) On/Off Footwear (QC): 5 (not met) Toileting(FIM): 6 (met) Toileting Hygiene (QC): 6 (met) Transfers (B,C,W/C) (FIM): 6 (met) Toilet/Commode Transfer(FIM): 6 (met) Toilet/Commode Transfer (QC): 6 (met) Shower Transfer(FIM): 5 (met) Additional Goals: 1-Demonstrate ADL Tasks, 2-Verbalize Understanding, 3- ImproveStrength/Deborah 1=Demonstrate adherence to instructed precautions during ADL tasks. 2=Patient will verbalize/demonstrate understanding of assistive devices/ modifications for ADL. 3=Patient will improve strength/tolerance for activity to enable patient to perform ADL's. JOSE GUADALUPE BONILLA OT Nov 30, 2017 08:48
[2017-11-30] MEDS ORDERED: CYCL5TAB PO (09:05)
[2017-11-30] MEDS: RT-ADVAIR HFA 115/21 MCG PER PUFF IH SCH (09:57)
[2017-11-30 13:25] VITALS: BP 165/79
--- NOTE | 2017-11-30 14:10 | Therapy Team Discharge Summary ---
Therapy Discharge Summary Discharge Recommendations Date of Discharge 11/30/17 Therapy D/C Recommendations: Home w/ Family Support Physical Therapy This patient was seen on ARU post left femur fracture. Prior to fracture, she was mod indep with all mobility. Upon admit, she was min assist with transfers and gait and went up/down a step with assist. Treatment has focused on functional strength, gait, transfers, safety and activity tolerance. At discharge, she is SBA with gait and transfers as well as up and down 4 steps. She did not achieve the goals to be mod indep but is at a SBA level and will be with her spouse. Pt to discharge home with follow up care as needed. Occupational Therapy Decreased Activ Tolerance, Impaired I ADL's PT Manager Transfusion Goals Usp Goals PT Manager Transfusion Goals Time Frame: Dec 01, 2017 Transfers (B,C,W/C) (FIM): 6 (unmet) Roll Left to Right (QC): 6 Sit to Lying (QC): 6 Lying-Sitting on Side/Bed(QC): 6 Sit to Stand (QC): 6 Chair/Ifz-qg-Wthsr Xfer(QC): 6 Car Transfer (QC): 6 Does the Patient Walk: Yes Gait (FIM): 6 (unmet) Gait distance (FIM): 3=150 ft Distance: 200' Walk 10 feet (QC): 6 Walk 10ft-Uneven Surface(QC): 6 Walk 50ft with 2 Turns (QC): 6 Walk 150 ft (QC): 6 Gait Level of Assist: 6 Gait Assistive Device: FWW Stairs (FIM): 2 (met) # of Steps: 4 1 Step (curb) (QC): 5 4 Steps (QC): 5 12 Steps (QC): 9 Stairs Level Of Assist: 5 Picking up an Object (QC): 5 Pt is at a SBA level with transfers. OT Manager Transfusion Goals Usp Goals Time Frame: Dec 12, 2017 Eating (FIM): 6 (met) Eating (QC): 6 (met) Oral Hygiene (QC): 6 (not met- Does not perform) Grooming(FIM): 6 (met) Bathing(FIM): 5 (met) Shower/Bathe Self (QC): 5 (met) Upper Body Dressing(FIM): 5 (met) Upper Body Dressing (QC): 5 (met) Lower Body Dressing(FIM): 5 (not met) Lower Body Dressing (QC): 5 (not met) On/Off Footwear (QC): 5 (not met) Toileting(FIM): 6 (met) Toileting Hygiene (QC): 6 (met) Transfers (B,C,W/C) (FIM): 6 (met) Toilet/Commode Transfer(FIM): 6 (met) Toilet/Commode Transfer (QC): 6 (met) Shower Transfer(FIM): 5 (met) Additional Goals: 1-Demonstrate ADL Tasks, 2-Verbalize Understanding, 3- ImproveStrength/Deborah 1=Demonstrate adherence to instructed precautions during ADL tasks. 2=Patient will verbalize/demonstrate understanding of assistive devices/ modifications for ADL. 3=Patient will improve strength/tolerance for activity to enable patient to perform ADL's. JONE WEEMS PT Nov 30, 2017 14:10
--- NOTE | 2017-12-04 08:27 | Therapy Team Discharge Summary ---
Therapy Discharge Summary Discharge Recommendations Date of Discharge Nov 30, 2017 at 08:45 Therapy D/C Recommendations: Home w/ Family Support Occupational Therapy Pt. has been seen by occupational therapy to increase overall strength and independence with daily tasks. Pt. has met most goals, with exception of LE dressing for socks. Pt. has discharged home with spouse. Spouse is home time clerk with pt. Pt. would benefit from a hip kit as needed, and tub transfer bench. Decreased Activ Tolerance, Impaired I ADL's PT Detention Goals Digital Marketing Assistant Goals PT Detention Goals Time Frame: Dec 01, 2017 Transfers (B,C,W/C) (FIM): 6 (unmet) Roll Left to Right (QC): 6 Sit to Lying (QC): 6 Lying-Sitting on Side/Bed(QC): 6 Sit to Stand (QC): 6 Chair/Smy-hq-Gxarm Xfer(QC): 6 Car Transfer (QC): 6 Does the Patient Walk: Yes Gait (FIM): 6 (unmet) Gait distance (FIM): 3=150 ft Distance: 200' Walk 10 feet (QC): 6 Walk 10ft-Uneven Surface(QC): 6 Walk 50ft with 2 Turns (QC): 6 Walk 150 ft (QC): 6 Gait Level of Assist: 6 Gait Assistive Device: FWW Stairs (FIM): 2 (met) # of Steps: 4 1 Step (curb) (QC): 5 4 Steps (QC): 5 12 Steps (QC): 9 Stairs Level Of Assist: 5 Picking up an Object (QC): 5 OT Detention Goals Digital Marketing Assistant Goals Time Frame: Dec 12, 2017 Eating (FIM): 6 (met) Eating (QC): 6 (met) Oral Hygiene (QC): 6 (not met- Does not perform) Grooming(FIM): 6 (met) Bathing(FIM): 5 (met) Shower/Bathe Self (QC): 5 (met) Upper Body Dressing(FIM): 5 (met) Upper Body Dressing (QC): 5 (met) Lower Body Dressing(FIM): 5 (not met) Lower Body Dressing (QC): 5 (not met) On/Off Footwear (QC): 5 (not met) Toileting(FIM): 6 (met) Toileting Hygiene (QC): 6 (met) Transfers (B,C,W/C) (FIM): 6 (met) Toilet/Commode Transfer(FIM): 6 (met) Toilet/Commode Transfer (QC): 6 (met) Shower Transfer(FIM): 5 (met) Additional Goals: 1-Demonstrate ADL Tasks, 2-Verbalize Understanding, 3- ImproveStrength/Deborah 1=Demonstrate adherence to instructed precautions during ADL tasks. 2=Patient will verbalize/demonstrate understanding of assistive devices/ modifications for ADL. 3=Patient will improve strength/tolerance for activity to enable patient to perform ADL's. JOSE GUADALUPE BONILLA OT Dec 04, 2017 08:27
--- NOTE | 2017-12-20 05:11 | DISCHARGE SUMMARY ---
DATE OF SERVICE: 11/30/2017 HISTORY OF PRESENT ILLNESS: The patient is a 57-year-old disabled female who was modified independent with a walker prior to falling while in the community. She sustained a fracture of left proximal femur. She was admitted to [facility] and had IM nailing on 11/16/2017. She had a decline in her functional independence due to this and was referred to inpatient rehabilitation at [facility]. PAST MEDICAL HISTORY: Bipolar disorder, disabled since the late for back pain and psych issues, diabetes mellitus, diabetic peripheral neuropathy. She reports that she has a therapy dog for her anxiety. She presents to unit with her spouse. She has [place] Medicaid. He is a retired milk truck driver. They live in [place]. She reports that she took Xanax in the past for panic attacks, but [place] Medicaid will no longer cover that medication. MEDICAL COURSE: The patient was followed by Dr. Ruiz and Kaley while on rehab unit. She complained of sore throat, but strep throat screen was negative. A mass was noted in the right neck. She was seen by Dr. Ozuna ENT who diagnosed mass in the right tail of the parotid gland. He recommended outpatient followup regarding this, did not feel that it was emergent. The patient's sore throat resolved. The patient was afebrile during her stay. She utilize Xanax p.r.n. for anxiety, utilize muscle relaxant p.r.n. for back spasms. Pulse was 95 on 11/30/2017, respirations 21, blood pressure 165/79, O2 sat 94% on 2.5 liters of O2 by nasal cannula. She does have O2 at home and is O2 dependent. Her incision was healing well. She had decreased pain in general. CBC on 11/21/2017 showed WBC 9.6, H and H 10/30, platelet count 227 K. Chemistry on 11/21/2017 showed serum sodium 134, blood glucose 248, total protein 6.0, albumin 3.5. Glucometer readings from 11/27/2017 to 11/30/2017 varied between 143 and 334. Insulin was adjusted accordingly. REHABILITATION COURSE: She progressed well with therapy. She had increased strength and endurance. She was assessed by speech therapy upon admission and found to be cognitively intact and they signed off. PT NOTES: Upon admission to rehab unit, she was min assist for transfers and gait and went up and down one step with assist. At discharge, she is standby assist with gait and transfers as well as up and down four steps. OT NOTES: Upon admission, she was set up for grooming, mod assist for bathing, max assist for lower body dressing, min assist for upper body dressing, min assist for transfers in general. Upon discharge, the patient is modified independent for eating, oral hygiene and grooming, set up for bathing, standby assist for dressing, modified independent for toilet commode transfer and bed chair wheelchair transfers, modified independent for toileting hygiene. DISCHARGE INSTRUCTIONS: She will have followup with her PCP at [facility] in [place], specifically Kathleen Carmen DO and followup with orthopedics at [facility]. Continue current diet. Accu-Checks as per home regimen. DISCHARGE MEDICATIONS: Flexeril 5 mg p.o. t.i.d. p.r.n. muscle spasms, doxepin 10 mg p.o. each day at bedtime, hydrocodone/APAP 10/325 one tablet p.o. q.4 hours p.r.n. severe pain, albuterol nebulizer treatments daily, ASA 81 mg p.o. daily, enalapril 2.5 mg p.o. daily, fenofibrate 160 mg p.o. daily, fluoxetine 20 mg p.o. each day at bedtime and 40 mg p.o. daily, Advair Diskus 1 puff b.i.d., furosemide 20 mg p.o. daily p.r.n. swelling. Hydroxyzine 25 mg p.o. t.i.d. p.r.n. anxiety or itching, Tresiba FlexTouch 130 units subcu daily and Humalog KwikPen 20 units subcu t.i.d., DuoNeb treatments q.i.d., lamotrigine 50 mg p.o. b.i.d., Creon DR 1 capsule p.o. t.i.d., nitroglycerin 0.4 mg sublingual p.r.n. chest pain. Zyprexa 20 mg p.o. each day at bedtime, fish oil 1000 mg p.o. b.i.d., omeprazole 20 mg p.o. b.i.d., Minipress 1 mg p.o. each day at bedtime, Lyrica 150 mg p.o. t.i.d. DISCHARGE DIAGNOSES: 1. Rehabilitation left proximal femur fracture status post IM nailing, [facility] orthopedics. 2. Diabetes mellitus, peripheral neuropathy. 3. Bipolar disorder. 4. Anxiety. 5. Tobaccoism. 6. Chronic obstructive pulmonary disease, O2 dependent. 7. Lymphadenopathy. 8. Mass right tail of parotid gland, right. 9. Long-term use insulin. 10. Status post coronary stent. 11. Status post fall. 12. Postop anemia. 13. Mild hyponatremia. CONDITION AT DISCHARGE: Improved and stable. PROGNOSIS: Rehab prognosis appears good for continued improvement at home with home exercise program and return to independent living with spouse. Job ID: [id number] DocumentID: [id number] Dictated Date: 12/19/2017 16:08:09 Avionics Repair Technician Date: 12/20/2017 05:10:14 Dictated By: RYNE RUIZ MD MTDD
== END 2017-11-30 08:45 | disposition home or self-care (01) | DRG 561 ==
PROVIDERS: ADMIT Physical Medicine & Rehabilitation; ATTEND Physical Medicine & Rehabilitation
DX: S72.002D Fracture of unspecified part of neck of left femur, subsequent encounter for closed fracture with routine healing (principal); E11.42 Type 2 diabetes mellitus with diabetic polyneuropathy; F31.9 Bipolar disorder, unspecified; F41.9 Anxiety disorder, unspecified; F17.210 Nicotine dependence, cigarettes, uncomplicated; J44.9 Chronic obstructive pulmonary disease, unspecified; R59.1 Generalized enlarged lymph nodes; K11.9 Disease of salivary gland, unspecified; Z79.4 Long term (current) use of insulin; Z95.5 Presence of coronary angioplasty implant and graft; W19.XXXD Unspecified fall, subsequent encounter
CPT/HCPCS: 36415; 80053; 82962; 85027; 87430; 94640; 94760